=== PATIENT | male | born 1945 | race Caucasian/White ===

== ENCOUNTER 2016-12-31 08:28 | Day surgery (SDC) | payer MEDICARE, BC ==
[2016-12-31] VITALS (11 sets, daily range): BP systolic 108–136; BP diastolic 65–88
[~2016-12-31] VITALS: Ht 182.9 cm; Wt 70.3 kg
[~2016-12-31 08:28] MED LIST: ASPIRIN325 MG ORAL; FUROSEMIDE40 MG ORAL; PREDNISONE10 MG ORAL; SPIRONOLACTONE100 MG ORAL; Vancomycin 1 GM in D5W 275 ML IVPB ONE
--- NOTE | 2016-12-31 09:23 | Pre-Procedure Note/Attestation ---
Pre-Procedure Note/Attestation Complete Prior to Procedure Planned Procedure: not applicable Procedure Narrative: ipp Indications for Procedure Pre-Operative Diagnosis: ed Attestation I attest that I discussed the nature of the procedure; its benefits; risks and complications; and alternatives (and the risks and benefits of such alternatives ), prior to the procedure, with the patient (or the patient's legal medical claims representative). I attest that, if there was a reasonable possibility of needing a blood transfusion, the patient (or the patient's legal medical claims representative) was given the [facility] standardized written summary, pursuant to the Rolly Lizz Blood Safety Act ([place] Health and Safety Code # 1645, as amended). I attest that I re-evaluated the patient just prior to the surgery and that there has been no change in the patient's H&P, except as documented below: Agustín Laureano MD Dec 31, 2016 09:23
--- NOTE | 2016-12-31 09:24 | Brief Operative Note ---
Immediate Post Operative Note Operative Note Pre-op Diagnosis: ed Procedure: ipp Post-op Diagnosis: same Post-op Diagnosis: same as pre-op Surgeon: Tremaine Laureano Anesthesia: general Specimen: none Complications: none Condition: stable Fluids: 500 Estimated Blood Loss: minimal Implant(s) used?: Yes Agustín Laureano MD Dec 31, 2016 09:24
[2016-12-31] MEDS ORDERED: Bacitracin 50000 Units Vial IRRIG ONE ×2 (11:00→12:02)
[2016-12-31] MEDS ORDERED: Midazolam 2mg/2ml Inj ONE (11:30)
[2016-12-31] MEDS ORDERED: Succinylcholine 20mg/ml 10ml vial ONE (11:30)
[2016-12-31] MEDS ORDERED: Sterile Water Irrig 1000ml IRRIG ONE (11:30)
[2016-12-31] MEDS ORDERED: fentaNYL 100 mcg/2 mL IV ONE (11:30)
[2016-12-31] MEDS ORDERED: Lidocaine 1% MPF 10mg/ml 5ml ONE (11:30)
[2016-12-31] MEDS ORDERED: NS Irrig 1000ml ONE (11:30)
[2016-12-31] MEDS ORDERED: Propofol 200mg/20ml IV ONE (11:30)
[2016-12-31] MEDS ORDERED: LR 1000ml ONE (11:30)
[2016-12-31] MEDS ORDERED: Dexamethasone 4mg/ml vial ONE (11:30)
[2016-12-31] MEDS ORDERED: ePHEDrine 50mg/ml Inj ONE (11:30)
[2016-12-31] MEDS ORDERED: Solu-MEDROL 40mg Inj ONE (11:30)
--- NOTE | 2016-12-31 11:56 | Anethesia Preoperative Eval ---
Anesthesia Pre-op PMH/ROS General Date of Evaluation: Dec 31, 2016 Time of Evaluation: 11:20 Anesthesiologist: TOYA ASA Score: ASA 3 Mallampati Score Class I : Soft palate, uvula, fauces, pillars visible Class II: Soft palate, uvula, fauces visible Class III: Soft palate, base of uvula visible Class IV: Only hard plate visible Mallampati Classification: Class I Surgeon: PEEWEE Diagnosis: ED Surgical Procedure: IMPLANTABLE PENILE PROSTHESIS Anesthesia History: none Family History: no anesthesia problems Allergies: Coded Allergies: CODEINE (Verified Allergy, Intermediate, VOMITING, 12/31/16) IBUPROFEN (Verified Adverse Reaction, Severe, RED FACE, 12/31/16) pt has cirrhosis of liver Past Medical History Gastrointestinal/Genitourinary: Reports: other - LIVER CIRRHOSIS HEENT: Reports: glaucoma Anesthesia Pre-op Phys. Exam Physician Exam Last Vital Signs Date Time Temp Pulse Resp B/P (MAP) Pulse Ox O2 Delivery O2 Flow Rate FiO2 12/31/16 08:55 97.8 78 18 130/88 99 Room Air Constitutional: NAD Cardiovascular: RRR Airway Exam Mallampati Score: Class I MO: full ROM: full Anesthesia Pre-op A/P Risk Assessment & Plan Assessment: ASA3 Plan: GETA Status Change Before Surgery: No Pre-Antibiotics Drug: VANCO, GENT Given Within 1 Hr of Incision: Yes Time Given: 11:29 Yoli Mcdowell M.D. Dec 31, 2016 11:56
[2016-12-31] MEDS ORDERED: fentaNYL 100 mcg/2 mL IV PRN (12:00)
[2016-12-31] MEDS ORDERED: Atropine Inj 1mg/10ml Syr IV PRN (12:00)
[2016-12-31] MEDS ORDERED: Hydromorphone 0.5mg/0.5ml inj IVP PRN (12:00)
[2016-12-31] MEDS ORDERED: NeoSporin Gu Irrig 1ml Amp IRRIG ONE (12:44)
[2016-12-31] MEDS ORDERED: Bacitracin 50000 Units Vial ONE (12:44)
--- NOTE | 2016-12-31 14:49 | Immediate Post-Op Evaluation ---
Immediate Post-Op Evalulation Immediate Post-Op Evalulation Procedure: implantable penile prosthesis Date of Evaluation: Dec 31, 2016 Time of Evaluation: 12:43 IV Fluids: 300 Estimated Blood Loss: minimal Urinary Output: 350 Blood Pressure Systolic: 123 Blood Pressure Diastolic: 75 Pulse Rate: 78 Respiratory Rate: 18 O2 Sat by Pulse Oximetry: 99 Temperature (Fahrenheit): 97.5 Pain Score (1-10): 0 Nausea: No Vomiting: No Complications none Patient Status: awake Hydration Status: adequate Drug: vano, gent Given Within 1 Hr of Incision: Yes Time Given: 11:29 Yoli Mcdowell M.D. Dec 31, 2016 14:49
--- NOTE | 2016-12-31 14:51 | 48 Hour Post Anesthesia Eval ---
Post Anesthesia Evaluation Procedure: implantable penile prosthesis Date of Evaluation: Dec 31, 2016 Time of Evaluation: 13:15 Blood Pressure Systolic: 130 Pulse Rate: 69 Respiratory Rate: 18 Temperature (Fahrenheit): 97.6 O2 Sat by Pulse Oximetry: 99 Airway: patent Nausea: No Vomiting: No Pain Intensity: 0 Hydration Status: adequate Mental Status/LOC: patient returned to baseline Follow-up care needed: N/A Yoli Mcdowell M.D. Dec 31, 2016 14:51
--- NOTE | 2016-12-31 15:13 | History and Physical ---
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 The patient has no complaints of fever or recent illness, no complaint of chest pain or shortness of breath. Patient appears to be in stable condition and will be soon by surgical consultation. The patients coagulation studies will be examined before a surgical procedure due to the patients liver dysfunction. Allergies: Coded Allergies: CODEINE (Verified Allergy, Intermediate, VOMITING, 12/31/16) IBUPROFEN (Verified Adverse Reaction, Severe, RED FACE, 12/31/16) pt has cirrhosis of liver Medication History Scheduled Aspirin* (Aspirin*), 325 MG ORAL DAILY, (Reported) Furosemide* (Lasix*), 20 MG ORAL DAILY, (Reported) Prednisone* (Prednisone*), 10 MG ORAL DAILY, (Reported) Spironolactone* (Spironolactone*), 20 MG ORAL DAILY, (Reported) Patient History Healthcare decision maker Resuscitation status Advanced Directive on File Past Medical/Surgical History Past Medical/Surgical History: (1) Liver cirrhosis (2) penile prosthesis implant Review of Systems Constitutional: Reports: no symptoms Eye: Reports: no symptoms ENT: Reports: nasal discharge Genitourinary: Reports: dysuria, frequency, retention, incontinence, urgency Physical Exam General Appearance: WD/WN Lines, tubes and drains: peripheral, PICC HEENT: normocephalic, mucous membranes moist Neck: non-tender Respiratory/Chest: chest wall non-tender, lungs clear Breasts: no masses Cardiovascular/Chest: normal rate, no JVD Abdomen: normal bowel sounds, non tender, soft, no organomegaly Genitourinary/Rectal: normal genital exam, normal rectal exam, other - no apparent signs of trauma or disease Extremities: normal range of motion, non-tender, normal inspection, no calf tenderness Skin Exam: normal pigmentation, warm/dry Neurologic: auxiliary equipment tender II-XII grossly normal, no motor/sensory deficits Last 24 Hour Vital Signs Date Time Temp Pulse Resp B/P (MAP) Pulse Ox O2 Delivery O2 Flow Rate FiO2 12/31/16 14:51 69 18 99 12/31/16 14:49 78 18 99 12/31/16 13:25 98.0 70 20 130/76 100 Nasal Cannula 3.0 12/31/16 13:05 80 20 132/70 100 Nasal Cannula 3.0 12/31/16 12:50 84 20 136/77 100 Nasal Cannula 3.0 12/31/16 12:35 80 20 123/77 100 Simple Mask 8.0 12/31/16 12:30 88 20 129/77 100 Simple Mask 8.0 12/31/16 12:25 97.7 83 20 131/75 100 Simple Mask 8.0 12/31/16 08:55 97.8 78 18 130/88 99 Room Air Intake and Output 12/31/16 01/01/17 19:00 07:00 Intake Total 1000 ml Output Total 350 ml Balance 650 ml Intake IV Total 1000 ml Output Urine Total 350 ml # Voids 1 Height (Feet): 6 Height (Inches): 0.00 Weight (Pounds): 155 Medications Current Medications Medications (Trade) Dose Ordered Sig/Kayla Route PRN Reason Start Time Stop Time Status Last Admin Dose Admin Atropine Sulfate (Atropine) 0.5 mg Q5M PRN IV BRADYCARDIA 12/31/16 12:00 12/31/16 18:00 Dextrose/Sodium Chloride 1,000 ml @ 100 mls/hr Q10H IV 12/31/16 18:01 01/30/17 18:00 Fentanyl Citrate (Sublimaze 100 mcg/2 mL) 25 mcg Q10M PRN IV Moderate Pain (Pain Scale 4-6) 12/31/16 12:00 12/31/16 18:00 Hydromorphone HCl (Dilaudid) 0.5 mg Q15M PRN IVP Severe Pain (Pain Scale 7-10) 12/31/16 12:00 12/31/16 18:00 Hydromorphone HCl (Dilaudid) 1 mg Q1H PRN SUBQ Severe Pain (Pain Scale 7-10) 12/31/16 18:01 01/07/17 18:00 Ondansetron HCl (Zofran) 4 mg Q1H PRN IVP Nausea & Vomiting 12/31/16 12:00 12/31/16 18:00 Assessment/Plan Problem List: (1) penile prosthesis implant (2) Liver cirrhosis ICD Codes: K74.60 - Unspecified cirrhosis of liver SNOMED: [id number] Qualifiers: Status: stable, progressing Assessment/Plan Routine post op care Symptomatic treatment Check electrolytes and replacement as needed Pain management Urologist to follow up MARY LION Dec 31, 2016 15:13
[2016-12-31] MEDS: D5 1/2NS 1,000 ML IV SCH (17:43)
[2016-12-31] MEDS: HYDROmorphone 1mg/ml Carpuject SUBQ PRN (21:27)
[2017-01-01 00:09] VITALS: BP 97/57
[2017-01-01] MEDS: D5 1/2NS 1,000 ML IV SCH (03:58)
[2017-01-01 04:00] VITALS: BP 107/68
[2017-01-01] MEDS: HYDROmorphone 1mg/ml Carpuject SUBQ PRN (06:01)
[2017-01-01 08:00] VITALS: BP 106/67
[2017-01-01 09:12] LABS: BASOPHILS % (AUTO) 0.5 % (0.0-2.0); EOSINOPHILS % (AUTO) 0.5 % (0.0-3.0); LYMPHOCYTES % (AUTO) 15.3 % (20.0-45.0); MEAN CORPUSCULAR HEMOGLOBIN 23.8 PG (27.0-31.0); MEAN CORPUSCULAR HGB CONC 30.9 G/DL (32.0-36.0); MEAN CORPUSCULAR VOLUME 77 FL (80-99); MEAN PLATELET VOLUME 7.5 FL (6.5-10.1); MONOCYTES % (AUTO) 7.6 % (1.0-10.0); NEUTROPHILS % (AUTO) 76.2 % (45.0-75.0); PLATELET COUNT 194 K/UL (150-450); RED BLOOD COUNT 3.83 M/UL (4.70-6.10); RED CELL DISTRIBUTION WIDTH 17.2 % (11.6-14.8); WHITE BLOOD COUNT 13.1 K/UL (4.8-10.8)
[2017-01-01 09:28] LABS: ALANINE AMINOTRANSFERASE 13 U/L (12-78); ALBUMIN/GLOBULIN RATIO 0.9 (1.0-2.7); ANION GAP 8 mmol/L (5-15); ASPARTATE AMINO TRANSFERASE 17 U/L (15-37); CALCIUM 8.5 MG/DL (8.5-10.1); CARBON DIOXIDE 27 MMOL/L (21-32); CHLORIDE 106 MMOL/L (98-107); CREATININE 0.9 MG/DL (0.55-1.30); MAGNESIUM 1.8 MG/DL (1.8-2.4); PHOSPHORUS 2.6 MG/DL (2.5-4.9); POTASSIUM 4.1 MMOL/L (3.5-5.1); SODIUM 141 MMOL/L (136-145); TOTAL PROTEIN 6.2 G/DL (6.4-8.2)
[2017-01-01 12:51] VITALS: BP 118/66
[2017-01-01] MEDS ORDERED: D5 1/2NS 1000ml IV ONE (14:09)
--- NOTE | 2017-01-01 22:24 | Pulmonology Progress Note ---
Assessment/Plan Problems: (1) penile prosthesis implant (2) Liver cirrhosis Assessment/Plan Routine post op care Symptomatic treatment Check electrolytes and replacement as needed Pain management Urologist to follow up Subjective ROS Limited/Unobtainable: No Allergies: Coded Allergies: CODEINE (Verified Allergy, Intermediate, VOMITING, 12/31/16) IBUPROFEN (Verified Adverse Reaction, Severe, RED FACE, 12/31/16) pt has cirrhosis of liver Objective Last 24 Hour Vital Signs Date Time Temp Pulse Resp B/P (MAP) Pulse Ox O2 Delivery O2 Flow Rate FiO2 01/01/17 12:51 97.4 68 19 118/66 100 Room Air 01/01/17 08:00 97.3 64 19 106/67 99 Room Air 01/01/17 04:00 98.0 65 19 107/68 98 Nasal Cannula 3.0 01/01/17 00:09 98.0 66 18 97/57 97 Room Air General Appearance: no acute distress HEENT: normocephalic, atraumatic, PERRL Respiratory/Chest: chest wall non-tender, decreased breath sounds Cardiovascular: normal peripheral pulses, normal rate, regular rhythm, no JVD Abdomen: normal bowel sounds, soft, non tender, no organomegaly, non distended Genitourinary: other - status post penile prosthesis Extremities: no cyanosis Skin: no rash, no lesions Neurologic/Psychiatric: rivet sticker II-XII grossly normal, no motor/sensory deficits Laboratory Tests 01/01/17 08:50: White Blood Count 13.1H, Red Blood Count 3.83L, Hemoglobin 9.1L, Hematocrit 29.4L, Mean Corpuscular Volume 77L, Mean Corpuscular Hemoglobin 23.8L, Mean Corpuscular Hemoglobin Concent 30.9L, Red Cell Distribution Width 17.2H, Platelet Count 194, Mean Platelet Volume 7.5, Neutrophils (%) (Auto) 76.2H, Lymphocytes (%) (Auto) 15.3L, Monocytes (%) (Auto) 7.6, Eosinophils (%) (Auto) 0.5, Basophils (%) (Auto) 0.5, Sodium Level 141, Potassium Level 4.1, Chloride Level 106, Carbon Dioxide Level 27, Anion Gap 8, Blood Urea Nitrogen 11, Creatinine 0.9, Estimat Glomerular Filtration Rate , Glucose Level 130H, Calcium Level 8.5, Phosphorus Level 2.6, Magnesium Level 1.8, Total Bilirubin 0.2, Aspartate Amino Transf (AST/SGOT) 17, Alanine Aminotransferase (ALT/SGPT) 13, Alkaline Phosphatase 48, Total Protein 6.2L, Albumin 2.9L, Globulin 3.3, Albumin/Globulin Ratio 0.9L MARY LION Jan 01, 2017 22:24
--- NOTE | 2017-01-05 10:15 | Operative Note - Dictated ---
DATE OF OPERATION: 12/31/2016 PREOPERATIVE DIAGNOSIS: Organic impotence. POSTOPERATIVE DIAGNOSIS: Organic impotence. OPERATION: Implantation of 2-piece penile prosthesis. SURGEON: Agustín Laureano M.D. ANESTHESIA: General. FINDINGS: Obstructed corpora. 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 The patient had tried different modes of treatment without any success. Treatment options were explained to him at great length including all potential complications and he signed the consent. PROCEDURE IN DETAIL: The patient was brought to the operating room, placed in the supine position, and prepped and draped in the standard fashion under general anesthesia. A penoscrotal incision was made and corpora was opened on both sides and dilated to 14-Hebrew with Hegar dilators and urethra was carefully preserved. After the measurement, the corpora was 22 cm in length and 18 cm Ambicor prosthesis with 4 cm rear tip adapters were placed without any tension. Corpora was then closed with running 2-0 Vicryl sutures. Pump was placed in subdartos position. Wound was closed with 3 layers. The patient tolerated the procedure well. No evidence of complications. Agustín Laureano M.D. DR: DONNIE JOB#: [id number] CC: JOHNNA
--- NOTE | 2017-02-28 06:54 | Discharge Summary ---
Discharge Summary Hospital Course Date of Admission Dec 31, 2016 at 13:18 Date of Discharge Jan 01, 2017 at 14:10 Admitting Diagnosis HPI Afshin Hurst is a 71 year old male who was admitted on Dec 31, 2016 at 13: 18 for Impotence Hospital Course [id number] Discharge Discharge Disposition Patient was discharged to Home (01) Discharge Diagnoses: Harmony Oliveira NP Feb 28, 2017 06:54
--- NOTE | 2017-02-28 09:30 | Discharge Summary 2 SIG ---
DATE OF ADMISSION: 12/31/2016 DATE OF DISCHARGE: 01/01/2017 BRIEF HOSPITAL COURSE: The patient is a 71-year-old male, who was admitted for implantable penile prosthesis, underwent implantation of two-piece penile prosthesis on 12/31/[address] Agustín Laureano. He tolerated procedure well and postoperatively, Haro catheter was discontinued. The patient was ambulating and voiding well, tolerating diet. He was eventually discharged home. FINAL DIAGNOSES: 1. Organic impotence, status post implantation of two-piece penile prosthesis. 2. Liver cirrhosis. DISPOSITION: The patient was discharged home. DISCHARGE INSTRUCTION: Follow up with Dr. Laureano as an outpatient. Agustín Laureano M.D. I have been assigned to dictate discharge summary on this account and I was not involved in the patient's management. Harmony Oliveira N.P. DR: UBALDO JOB#: [id number] CC:
== END 2017-01-01 14:10 | disposition home or self-care (01) ==
LOC: SUR 08:28 → 3E 13:18
DX: N52.9 Male erectile dysfunction, unspecified (principal); F17.200 Nicotine dependence, unspecified, uncomplicated; R53.83 Other fatigue; R07.9 Chest pain, unspecified; F32.9 Major depressive disorder, single episode, unspecified; F41.9 Anxiety disorder, unspecified; Z88.6 Allergy status to analgesic agent; K74.60 Unspecified cirrhosis of liver
CPT/HCPCS: 36415; 54405; 71010; 80053; 83735; 84100; 85025; 96360; 96372; C1813; G0378; G0379; J0330; J1100; J1170; J2250; J2405; J2704; J2920; J3010; J3370; J7120; 94003; 94150

== ENCOUNTER 2018-11-04 05:59 | Emergency (ER) | payer MEDICARE, BC ==
[~2018-11-04] VITALS: Ht 182.9 cm; Wt 63.5 kg
[~2018-11-04 05:59] MED LIST changes: -Vancomycin 1 GM in D5W 275 ML IVPB ONE
--- NOTE | 2018-11-04 06:03 | NUR ---
called pt, not in the waiting room, pt outside smoking.
[2018-11-04 06:18] VITALS: BP 112/78
[2018-11-04] MEDS ORDERED: VENTOLIN HFA18 GM INH (06:20)
[2018-11-04] MEDS ORDERED: INJECTAFER750 MG/15 (06:20)
[2018-11-04] MEDS ORDERED: FERGON240 MG PO (06:20)
[2018-11-04] MEDS ORDERED: TESTOSTERONE1.25 GM TD (06:20)
[2018-11-04] MEDS ORDERED: FLOMAX0.4 MG ORAL (06:20)
[2018-11-04] MEDS ORDERED: ASPIRIN81 M3 PO (06:20)
[2018-11-04] MEDS ORDERED: ALDACTONE25 MG ORAL (06:20)
--- NOTE | 2018-11-04 06:24 | NUR ---
ED Nurse Note: pt walked in to ED C/O bleeding from his left eye since 0500 this morning when he woke up. pt states he had a retina repair about two years ago. denies any pain to left eye, however it is uncomfortable.
--- NOTE | 2018-11-04 06:26 | NUR ---
ED Nurse Note: left eye is blind, rght eye is 20/25. Pt VSS
--- NOTE | 2018-11-04 06:59 | Emergency Room Report ---
History of Present Illness General Chief Complaint: Eye Problems Source: Patient, Medical Record Present Illness HPI This patient has a history of left eye blindness. He states that 2 years ago he underwent a left retina repair by Dr. Fu. He states that he sees Dr. Fu every 3 months for routine appointments. He does have an appointment with Dr. Fu this morning at 915. However, he presents to the emergency department today because he noted some bleeding from his left eye when he woke up this morning. He does have a history of blindness in the left eye. He denies recent illness. He states that normally his left conjunctive was not as irritated. He denies fever or chills. He denies headache. He denies eye pain. He has no other complaints. Allergies: Coded Allergies: CODEINE (Verified Allergy, Intermediate, VOMITING, 12/31/16) IBUPROFEN (Verified Adverse Reaction, Severe, RED FACE, 12/31/16) pt has cirrhosis of liver Patient History Past Medical History: see triage record, other - Hx of cirrhosis Past Surgical History: other - duodenctomy Social History: Reports: smoking; Denies: alcohol use, drug use Reviewed Nursing Documentation: PMH: Agreed; PSxH: Agreed Nursing Documentation-PMH Past Medical History: No History, Except For Hx Cardiac Problems: No Hx Cancer: No Hx Gastrointestinal Problems: Yes - DUODENECTOMY, HERNIA REPAIR Hx Neurological Problems: No - RETINA REPLACEMENT SURGERY Review of Systems All Other Systems: negative except mentioned in HPI Physical Exam Vital Signs Date Time Temp Pulse Resp B/P (MAP) Pulse Ox O2 Delivery O2 Flow Rate FiO2 11/04/18 06:10 97.7 90 18 111/78 (89) 95 Room Air Sp02 EP Interpretation: reviewed, normal General Appearance: no apparent distress, alert, GCS 15, non-toxic Head: normocephalic, atraumatic Eyes: right eye normal inspection; left eye Scleral Injection, left eye other - small amount of old blood and conjunctival erythema of L. eye. Cornea cloudy , pupil non-reactive (baseline). Eyelids wnl. ENT: hearing grossly normal, normal pharynx, no angioedema, normal voice Neck: full range of motion, supple/symm/no masses Respiratory: no respiratory distress, no retraction, no accessory muscle use, speaking full sentences Gastrointestinal: normal inspection Rectal: deferred Musculoskeletal: back normal, gait/station normal Neurologic: alert, oriented x3, responsive, motor strength/tone normal, speech normal Psychiatric: judgement/insight normal, memory normal, mood/affect normal, no suicidal/homicidal ideation Skin: no rash, normal color Medical Decision Making Diagnostic Impression: Primary Impression: Conjunctivitis ER Course This patient has findings on exam consistent with conjunctivitis. The patient is complicated secondary to his history of blindness in this eye and a history of retinal detachment with retinal repair. I am unsure of the exam findings of the left eye at baseline for this patient, therefore, I felt that I should discuss the case with the patient's primary fire sprinkler service technician Dr. Fu. The patient's ophthalmology office was closed and multiple message is were left on the office voicemail. Therefore, given the patient has an appointment at 915 this morning with his own fire sprinkler service technician, I will go ahead and give the patient topical antibiotics and have him keep his 915 appointment this morning. The patient is given close return precautions and follow-up instructions. Last Vital Signs Date Time Temp Pulse Resp B/P (MAP) Pulse Ox O2 Delivery O2 Flow Rate FiO2 11/04/18 06:18 97.7 84 18 112/78 95 Room Air Status: improved Disposition: HOME, SELF-CARE Condition: Improved Patient Instructions: Bacterial Conjunctivitis, [id number] Vangie Wallace DO Nov 04, 2018 06:59
--- NOTE | 2018-11-04 07:05 | NUR ---
ED Nurse Note: report given to NAOMIE posey
[2018-11-04] MEDS ORDERED: CILOXAN3.5 GM OP (07:17)
[2018-11-04 07:20] VITALS: BP 112/78
--- NOTE | 2018-11-04 07:20 | NUR ---
ER DISCHARGE NOTE: Patient is cleared to be discharged per ERMD, pt is aox4, on room air, with stable vital signs. pt was given dc and prescription instructions, pt was able to verbalize understanding, pt id band removed. pt is able to ambulate with steady gait. pt took all belongings.
== END 2018-11-04 07:20 | disposition home or self-care (01) ==
LOC: EMR 06:37
DX: H10.9 Unspecified conjunctivitis (principal); H54.62 Unqualified visual loss, left eye, normal vision right eye; Z88.6 Allergy status to analgesic agent; F17.200 Nicotine dependence, unspecified, uncomplicated
CPT/HCPCS: 99282

== ENCOUNTER 2020-01-25 03:32 | Inpatient (IN) | payer MEDICARE, BC ==
[~2020-01-25] VITALS: Ht 165.1 cm; Wt 57.6 kg
[2020-01-25] VITALS (7 sets, daily range): BP systolic 70–140; BP diastolic 50–90
[~2020-01-25 03:32] MED LIST changes: +ALDACTONE25 MG ORAL; +ASPIRIN81 M3 PO; +CILOXAN3.5 GM OP; +FERGON240 MG PO; +FLOMAX0.4 MG ORAL; +INJECTAFER750 MG/15; +TESTOSTERONE1.25 GM TD; +VENTOLIN HFA18 GM INH; +Vancomycin 1gm in D5W 275ml IVPB SCH
[2020-01-25] MEDS ORDERED: Morphine Sulfate 2mg/ml Inj(IV/IM USE ONLY) IVP ONE (04:00)
--- NOTE | 2020-01-25 04:07 | Emergency Room Report ---
History of Present Illness General Chief Complaint: Pain Source: Patient, EMS (Jamie Bailey MD) Present Illness HPI Patient transported via EMS. He is coming from home with a complaint of abdominal pain and vomiting that began at 7 PM last night. He draws both of his hands across the lower part of the abdomen. He said it radiates somewhat to his back also. He has not had this pain before. He is denies change in his bowels, hematochezia or melena or bright red blood. In addition he has been vomiting up food stuff. In the back of the ambulance he vomited up some oatmeal and thinks he might of brought it into his lungs and therefore he has been coughing due to that. The pain is rated 8/10 in the lower abdomen. It is constant. The patient has a history of metastatic lung CA and began chemotherapy 3 weeks ago. He has a Port-A-Cath. He has been losing weight. He has been trying to get nutritional supplements but has been unable to recently. The patient also has a history of cirrhosis. The patient has been self isolating and denies exposure to Covid positive contacts. No fevers, chills, sore throat, chest pain, palpitations, dysuria, shortness of breath, joint pain, rashes, visual changes, dizziness, headache. 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 [email or web address] Reviewed Nursing Documentation: PMH: Agreed; PSxH: Agreed (Jamie Bailey MD) Nursing Documentation-PMH Hx Cardiac Problems: No Hx Cancer: No - LUNG, LIVER CA Hx Gastrointestinal Problems: Yes - DUODENECTOMY, HERNIA REPAIR, LIVER CIRRHOSIS Hx Neurological Problems: No - RETINA REPLACEMENT SURGERY (Jamie Bailey MD) Review of Systems All Other Systems: negative except mentioned in HPI (Jamie Bailey MD) Physical Exam Vital Signs Date Time Temp Pulse Resp B/P (MAP) Pulse Ox O2 Delivery O2 Flow Rate FiO2 01/25/20 03:33 98.1 72 20 130/82 (98) 97 Sp02 EP Interpretation: reviewed, normal General Appearance: thin, other - Cachectic, Chronically Ill Head: normocephalic, atraumatic Eyes: bilateral eye EOMI, bilateral eye other - Bilateral cataracts more dense on the left ENT: dry mucus membranes Respiratory: chest non-tender, rales - Dry right base Cardiovascular #1: normal peripheral pulses, regular rate, rhythm, other - Po rt-A-Cath right Cardiovascular #2: 2+ radial (R) Gastrointestinal: normal bowel sounds, no mass, no guarding, no rebound, tenderness - Infraumbilical, scaphoid Genitourinary: no CVA tenderness Musculoskeletal: back normal Neurologic: alert, oriented x3, grossly normal Psychiatric: mood/affect normal Skin: no rash, warm/dry, other - Sallow (Jamie Bailey MD) Medical Decision Making Diagnostic Impression: Primary Impression: Abdominal pain Qualified Codes: R10.30 - Lower abdominal pain, unspecified Additional Impressions: Right lower lobe pneumonia Qualified Codes: J18.9 - Pneumonia, unspecified organism Metastatic primary lung cancer Qualified Codes: C34.91 - Malignant neoplasm of unspecified part of right bronchus or lung ER Course Patient with metastatic lung cancer on chemotherapy presents with lower abdominal pain and vomiting. Differential includes pancreatitis, diverticulitis, urinary tract infection, small bowel obstruction, aortic aneurysm amongst others. Patient evaluated with EKG, chest x-ray, CT of the abdomen and pelvis and labs. Concern over recent vomiting and cough for possibility of pneumonia on top of obvious clinical COPD and lung cancer. Patient placed on registered nurse cardiac telemetry. Venous blood gas also obtained. Patient treated with IV hydration, Zofran, Pepcid and morphine. Repeated exams indicated. EKG NSR and NSSTTW changes. CXR with possible infiltrates (different from 2010). BC ordered and antibiotics also. 445 Consideration of sepsis due to elevated WBC. VS stable, no end organ dysfunction. Antibiotics ordered. Await lactic acid. Sepsis re-evaluation - 515. Elevated liver function tests. INR normal. Urinalysis negative. Lactic acid normal. Patient improved with treatment. Analgesia repeated. Patient admitted to the hospital. CT scan performed but results pending. Result review requested of Dr. Verma. Laboratory Tests Test 01/25/20 03:45 01/25/20 04:02 01/25/20 04:03 Urine Color Yellow Urine Appearance Clear Urine pH 7 (4.5-8.0) Urine Specific [place] 1.010 (1.005-1.035) Urine Protein Negative (NEGATIVE) Urine Glucose (UA) Negative (NEGATIVE) Urine Ketones Negative (NEGATIVE) Urine Blood Negative (NEGATIVE) Urine Nitrite Negative (NEGATIVE) Urine Bilirubin Negative (NEGATIVE) Urine Urobilinogen 4 MG/DL (0.0-1.0) H Urine Leukocyte Esterase Negative (NEGATIVE) Sodium Level 134 MMOL/L (136-145) L Potassium Level 3.7 MMOL/L (3.5-5.1) Chloride Level 99 MMOL/L (98-107) Carbon Dioxide Level 28 MMOL/L (21-32) Anion Gap 7 mmol/L (5-15) Blood Urea Nitrogen 12 mg/dL (7-18) Creatinine 1.0 MG/DL (0.55-1.30) Estimated Glomerular Filtration Rate > 60 mL/min (>60) Glucose Level 169 MG/DL (74-106) H Lactic Acid Level 1.10 mmol/L (0.4-2.0) Calcium Level 8.7 MG/DL (8.5-10.1) Magnesium Level 1.8 MG/DL (1.8-2.4) Ferritin 385 NG/ML (8-388) Total Bilirubin 1.5 MG/DL (0.2-1.0) H Direct Bilirubin 1.2 MG/DL (0.0-0.3) H Aspartate Amino Transferase (AST) 495 U/L (15-37) H Alanine Aminotransferase (ALT) 362 U/L (12-78) H Alkaline Phosphatase 982 U/L (46-116) H Lactate Dehydrogenase 527 U/L (81-234) H Total Creatine Kinase 32 U/L (26-308) Troponin I 0.000 ng/mL (0.000-0.056) C-Reactive Protein, Quantitative 3.0 mg/dL (0.00-0.90) H Pro-B-Type Natriuretic Peptide 247 pg/mL (0-125) H Total Protein 7.2 G/DL (6.4-8.2) Albumin 2.8 G/DL (3.4-5.0) L Globulin 4.4 g/dL Albumin/Globulin Ratio 0.6 (1.0-2.7) L Lipase 51 U/L (73-393) L White Blood Count 26.8 K/UL (4.8-10.8) *H Red Blood Count 3.85 M/UL (4.70-6.10) L Hemoglobin 12.9 G/DL (14.2-18.0) L Hematocrit 38.8 % (42.0-52.0) L Mean Corpuscular Volume 101 FL (80-99) H Mean Corpuscular Hemoglobin 33.6 PG (27.0-31.0) H Mean Corpuscular Hemoglobin Concent 33.4 G/DL (32.0-36.0) Red Cell Distribution Width 13.5 % (11.6-14.8) Platelet Count 322 K/UL (150-450) Mean Platelet Volume 6.3 FL (6.5-10.1) L Neutrophils (%) (Auto) % (45.0-75.0) Lymphocytes (%) (Auto) % (20.0-45.0) Monocytes (%) (Auto) % (1.0-10.0) Eosinophils (%) (Auto) % (0.0-3.0) Basophils (%) (Auto) % (0.0-2.0) Differential Total Cells Counted 100 Neutrophils % (Manual) 91 % (45-75) H Lymphocytes % (Manual) 6 % (20-45) L Monocytes % (Manual) 3 % (1-10) Eosinophils % (Manual) 0 % (0-3) Basophils % (Manual) 0 % (0-2) Band Neutrophils 0 % (0-8) Platelet Estimate Adequate Platelet Morphology Normal Prothrombin Time 11.9 SEC (9.30-11.50) H Prothrombin Time INR 1.1 (0.9-1.1) Activated Partial Thromboplast Time 27 SEC (23-33) Venous Blood pH 7.482 Venous Blood Partial Pressure CO2 34.5 Venous Blood Partial Pressure O2 66.9 Venous Blood HCO3 25.2 Venous Blood Base Excess 2.1 Venous Blood Carboxyhemoglobin 2.1 % (0.5-1.5) H Methemoglobin 0.1 Microbiology Date/Time Source Procedure Growth Status 01/25/20 04:00 Nasopharynx SARS-CoV-2 RdRp Gene Assay - Final Complete (Jamie Bailey MD) ER Course Assumed care of the patient from the previous provider at approximately 0600. Please refer to initial note for full history and physical exam. Briefly, 74-year-old male history of metastatic cancer presents for evaluation of abdominal pain. Found to have a right lower lobe pneumonia and treated with antibiotics. At the time of signout we are awaiting CT results. Results are now finalized and radiology concerned of obstructing biliary disease, either ampullary lesion versus gallstone. LFTs and bilirubin are elevated that the pat ient also has a history of cirrhosis. Admitting physician and surgery notified. Laboratory Tests Test 01/25/20 03:45 01/25/20 04:02 01/25/20 04:03 Urine Color Yellow Urine Appearance Clear Urine pH 7 (4.5-8.0) Urine Specific [place] 1.010 (1.005-1.035) Urine Protein Negative (NEGATIVE) Urine Glucose (UA) Negative (NEGATIVE) Urine Ketones Negative (NEGATIVE) Urine Blood Negative (NEGATIVE) Urine Nitrite Negative (NEGATIVE) Urine Bilirubin Negative (NEGATIVE) Urine Urobilinogen 4 MG/DL (0.0-1.0) H Urine Leukocyte Esterase Negative (NEGATIVE) Sodium Level 134 MMOL/L (136-145) L Potassium Level 3.7 MMOL/L (3.5-5.1) Chloride Level 99 MMOL/L (98-107) Carbon Dioxide Level 28 MMOL/L (21-32) Anion Gap 7 mmol/L (5-15) Blood Urea Nitrogen 12 mg/dL (7-18) Creatinine 1.0 MG/DL (0.55-1.30) Estimated Glomerular Filtration Rate > 60 mL/min (>60) Glucose Level 169 MG/DL (74-106) H Lactic Acid Level 1.10 mmol/L (0.4-2.0) Calcium Level 8.7 MG/DL (8.5-10.1) Magnesium Level 1.8 MG/DL (1.8-2.4) Ferritin 385 NG/ML (8-388) Total Bilirubin 1.5 MG/DL (0.2-1.0) H Direct Bilirubin 1.2 MG/DL (0.0-0.3) H Aspartate Amino Transferase (AST) 495 U/L (15-37) H Alanine Aminotransferase (ALT) 362 U/L (12-78) H Alkaline Phosphatase 982 U/L (46-116) H Lactate Dehydrogenase 527 U/L (81-234) H Total Creatine Kinase 32 U/L (26-308) Troponin I 0.000 ng/mL (0.000-0.056) C-Reactive Protein, Quantitative 3.0 mg/dL (0.00-0.90) H Pro-B-Type Natriuretic Peptide 247 pg/mL (0-125) H Total Protein 7.2 G/DL (6.4-8.2) Albumin 2.8 G/DL (3.4-5.0) L Globulin 4.4 g/dL Albumin/Globulin Ratio 0.6 (1.0-2.7) L Lipase 51 U/L (73-393) L White Blood Count 26.8 K/UL (4.8-10.8) *H Red Blood Count 3.85 M/UL (4.70-6.10) L Hemoglobin 12.9 G/DL (14.2-18.0) L Hematocrit 38.8 % (42.0-52.0) L Mean Corpuscular Volume 101 FL (80-99) H Mean Corpuscular Hemoglobin 33.6 PG (27.0-31.0) H Mean Corpuscular Hemoglobin Concent 33.4 G/DL (32.0-36.0) Red Cell Distribution Width 13.5 % (11.6-14.8) Platelet Count 322 K/UL (150-450) Mean Platelet Volume 6.3 FL (6.5-10.1) L Neutrophils (%) (Auto) % (45.0-75.0) Lymphocytes (%) (Auto) % (20.0-45.0) Monocytes (%) (Auto) % (1.0-10.0) Eosinophils (%) (Auto) % (0.0-3.0) Basophils (%) (Auto) % (0.0-2.0) Differential Total Cells Counted 100 Neutrophils % (Manual) 91 % (45-75) H Lymphocytes % (Manual) 6 % (20-45) L Monocytes % (Manual) 3 % (1-10) Eosinophils % (Manual) 0 % (0-3) Basophils % (Manual) 0 % (0-2) Band Neutrophils 0 % (0-8) Platelet Estimate Adequate Platelet Morphology Normal Prothrombin Time 11.9 SEC (9.30-11.50) H Prothrombin Time INR 1.1 (0.9-1.1) Activated Partial Thromboplast Time 27 SEC (23-33) Venous Blood pH 7.482 Venous Blood Partial Pressure CO2 34.5 Venous Blood Partial Pressure O2 66.9 Venous Blood HCO3 25.2 Venous Blood Base Excess 2.1 Venous Blood Carboxyhemoglobin 2.1 % (0.5-1.5) H Methemoglobin 0.1 Microbiology Date/Time Source Procedure Growth Status 01/25/20 04:00 Nasopharynx SARS-CoV-2 RdRp Gene Assay - Final Complete (Dony Verma MD) EKG Diagnostic Results Rate: normal Rhythm: NSR ST Segments: no acute changes (Jamie Bailey MD) Rhythm Strip Diag. Results EP Interpretation: yes Rhythm: NSR, no PVC's, no ectopy (Jamie Bailey MD) Chest X-Ray Diagnostic Results Chest X-Ray Diagnostic Results : Chest X-Ray Ordered: Yes # of Views/Limited/Complete: 1 View Indication: Other EP Interpretation: Yes Interpretation: no pneumothorax, other - possible effusion R and infiltrates, portacath Impression: Other Electronically Signed by: Electronically signed by Jamie Bailey MD (Jamie Bailey MD) CT/MRI/US Diagnostic Results CT/MRI/US Diagnostic Results : Impression IMPRESSION: Patchy airspace opacities in the right upper and right middle lobes maybe associated with multifocal pneumonia. Please correlate with patient's respiratory status. Moderate intra-and extrahepatic biliary ductal dilatation. Please correlate with lab work to assess for acute biliary obstruction, which maybe associated with ampullary lesion or obstructing gallstone. If further imaging is warranted consider MRCP. Radiologist: James Santamaria M.D. Electronically Signed: 01/25/20 06:19 (Dony Verma MD) Last Vital Signs Date Time Temp Pulse Resp B/P (MAP) Pulse Ox O2 Delivery O2 Flow Rate FiO2 01/25/20 09:00 Nasal Cannula 2.0 01/25/20 08:00 98.2 92 19 137/90 (106) 98 Status: improved (Jamie Bailey MD) Disposition: ADMITTED INPATIENT Condition: Serious Jamie Bailey MD Jan 25, 2020 04:07 Dony Verma MD Jan 25, 2020 06:24
[2020-01-25] MEDS ORDERED: Omnipaque-300 100ml vial INJ PRN (04:15)
[2020-01-25 04:42] LABS: APPEARANCE,URINE CLEAR; BILIRUBIN, URINE NEGATIVE (NEGATIVE); GLUCOSE, URINE (UA) NEGATIVE (NEGATIVE); KETONES,URINE NEGATIVE (NEGATIVE); LEUKOCYTE ESTERASE ,URINE NEGATIVE (NEGATIVE); NITRITE,URINE NEGATIVE (NEGATIVE); PH,URINE 7 (4.5-8.0); PROTEIN,URINE NEGATIVE (NEGATIVE); UROBILINOGEN,URINE 4 MG/DL (0.0-1.0)
[2020-01-25 04:52] LABS: INR 1.1 (0.9-1.1)
[2020-01-25 04:55] LABS: ANION GAP 7 mmol/L (5-15); BLOOD UREA NITROGEN 12 mg/dL (7-18); CALCIUM 8.7 MG/DL (8.5-10.1); CARBON DIOXIDE 28 MMOL/L (21-32); CHLORIDE 99 MMOL/L (98-107); POTASSIUM 3.7 MMOL/L (3.5-5.1); SODIUM 134 MMOL/L (136-145)
[2020-01-25] MEDS ORDERED: Piperacillin/Tazobactam 3.375 GM in NS 110 ML IVPB ONE (05:00)
[2020-01-25] MEDS ORDERED: Azithromycin 500 MG in NS 275 ML IV ONE (05:00)
[2020-01-25 05:05] LABS: HEMATOCRIT 38.8 % (42.0-52.0); HEMOGLOBIN 12.9 G/DL (14.2-18.0); MEAN CORPUSCULAR VOLUME 101 FL (80-99); PLATELET COUNT 322 K/UL (150-450); RED BLOOD COUNT 3.85 M/UL (4.70-6.10); RED CELL DISTRIBUTION WIDTH 13.5 % (11.6-14.8)
[2020-01-25 05:07] LABS: WHITE BLOOD COUNT 26.8 K/UL (4.8-10.8)
[2020-01-25 05:12] LABS: ALANINE AMINOTRANSFERASE 362 U/L (12-78); ALBUMIN 2.8 G/DL (3.4-5.0); ALBUMIN/GLOBULIN RATIO 0.6 (1.0-2.7); ALKALINE PHOSPHATASE 982 U/L (46-116); ASPARTATE AMINO TRANSFERASE 495 U/L (15-37); BILIRUBIN,TOTAL 1.5 MG/DL (0.2-1.0); CREATINE KINASE 32 U/L (26-308); FERRITIN 385 NG/ML (8-388); LACTATE DEHYDROGENASE 527 U/L (81-234)
[2020-01-25 05:20] LABS: BILIRUBIN,DIRECT 1.2 MG/DL (0.0-0.3)
[2020-01-25] MEDS ORDERED: Morphine Sulfate 4mg/ml Inj (IV USE ONLY) IVP ONE (05:30)
[2020-01-25 06:13] LABS: COLOR,URINE YELLOW
--- NOTE | 2020-01-25 06:20 | Diagnostic Imaging Report ---
EXAM: CT Abdomen and Pelvis With Intravenous Contrast CLINICAL HISTORY: ABD PAIN TECHNIQUE: Axial computed tomography images of the abdomen and pelvis with intravenous contrast. CTDI is 3.40 mGy and DLP is 168.90 mGy-cm. One or more of the following dose reduction techniques were used: automated exposure control, adjustment of the mA and/or kV according to patient size, use of iterative reconstruction technique. COMPARISON: No relevant prior studies available. FINDINGS: Lung bases: Patchy airspace consolidation is seen within the right middle and right lower lobes. There is a partially loculated right pleural effusion with a subpulmonic component, as well as a prominent component within the right major fissure. ABDOMEN: Liver: Unremarkable. No mass. Gallbladder and bile ducts: There is moderate to marked intra-and extrahepatic biliary ductal dilatation, with the common bile duct measuring up to 15 mm in diameter. Pancreas: Unremarkable. No mass. No ductal dilation. Spleen: Unremarkable. No splenomegaly. Adrenals: Unremarkable. No mass. Kidneys and ureters: Unremarkable. No solid mass. No hydronephrosis. Stomach and bowel: Postsurgical changes seen regional to the gastroesophageal junction. No evidence of bowel obstruction. No definite bowel wall thickening. PELVIS: Appendix: No findings to suggest acute appendicitis. Bladder: Moderate distention of the urinary bladder. No bladder wall thickening. No intraluminal calculi. Reproductive: Penile prosthesis in place. ABDOMEN and PELVIS: Intraperitoneal space: Unremarkable. No free air. No significant fluid collection. Bones/joints: No acute fracture. No dislocation. Soft tissues: Unremarkable. Vasculature: Unremarkable. No abdominal aortic aneurysm. Lymph nodes: Unremarkable. No enlarged lymph nodes. IMPRESSION: Patchy airspace opacities in the right upper and right middle lobes may be associated with multifocal pneumonia. Please correlate with patient's respiratory status. Moderate intra-and extrahepatic biliary ductal dilatation. Please correlate with lab work to assess for acute biliary obstruction, which may be associated with ampullary lesion or obstructing gallstone. If further imaging is warranted consider MRCP.
[2020-01-25] MEDS ORDERED: Morphine Sulfate 2mg/ml Inj(IV/IM USE ONLY) IVP PRN (08:45)
--- NOTE | 2020-01-25 12:00 | Consultation ---
DATE OF CONSULTATION: 01/25/2020 INFECTIOUS DISEASES CONSULTATION CONSULTING PHYSICIAN: Georgina Kang MD. REFERRING PHYSICIAN: Ralf Lopez MD. REASON FOR CONSULTATION: Pneumonia. HISTORY OF PRESENTING ILLNESS: This is a 74-year-old gentleman with history of lung cancer, status post chemotherapy, prior history of duodenectomy, who comes in with abdominal pain along with nausea and vomiting. There was a concern for pneumonia and he has also been coughing and an Infectious Diseases consultation has been obtained for antibiotics. PAST MEDICAL HISTORY: 1. History of cirrhosis. 2. History of lung cancer, status post chemotherapy. 3. History of duodenectomy. 4. History of hernia repair. 5. History of retinal surgery. SOCIAL HISTORY: He used to be a smoker, he does not smoke anymore. He used to drink alcohol, he does not drink anymore. No history of drug use. FAMILY HISTORY: Noncontributory. REVIEW OF SYSTEMS: RESPIRATORY: No fever or chills. He has cough. No shortness of breath or chest pain. CARDIAC: No chest pain. No palpitation. No dizziness. No syncope. GASTROINTESTINAL: He has nausea and vomiting. He has abdominal pain. No diarrhea. MEDICATIONS: As an inpatient, he is on Levaquin, Flagyl, morphine. ALLERGIES: 1. Codeine. 2. Ibuprofen. PHYSICAL EXAMINATION: VITAL SIGNS: Temperature of 98.2, T-max of 98.2, pulse of 92, respiratory rate 19, blood pressure 137/90, O2 saturation of 98%. HEENT: Pupils equally reactive to light and accommodation. Mouth appears clean without thrush. NECK: Supple. No adenopathy. No JVD. CARDIOVASCULAR: Regular rate and rhythm. No murmurs. LUNGS: Clear to auscultation bilaterally. No crackles. No wheezes. Right subclavian catheter noted. ABDOMEN: Soft, nontender. No organomegaly. EXTREMITIES: No cyanosis, no clubbing, no edema. LABORATORY AND DIAGNOSTIC DATA: White count 26.8, hemoglobin 12.9, hematocrit 38.8, MCV 101, platelet count of 322 with neutrophils of 91%. Sodium 134, potassium 3.7, chloride 99, bicarb 28, BUN 12, creatinine 1, glucose 169, calcium 8.7. Total bilirubin 1.5, direct bilirubin 1.2. AST 495, ALT 362, alkaline phosphatase 982. LDH 527. CK of 32. C-reactive protein of 3. Beta natriuretic peptide 247. Total protein 7.2. Albumin 2.8. Lipase of 51. UA is negative. COVID-[address] abdomen and pelvis showing patchy airspace opacities in the right upper and right middle lobes, may be associated with multifocal pneumonia. Moderate intra and extrahepatic biliary ductal dilatation, may be associated with ampullary lesion. No obstructing gallstone. ASSESSMENT: This is a 74-year-old gentleman with history of cirrhosis, lung cancer, status post chemotherapy, duodenectomy, who comes in with abdominal pain as well as vomiting and cough and was found to have, 1. Possible aspiration pneumonia. 2. Elevated liver function tests would be concerned regarding cholangitis or cholecystitis. 3. History of cirrhosis. 4. History of lung cancer. 5. Leukocytosis. PLAN: 1. Discontinue Levaquin and Flagyl. 2. We will start the patient on Zosyn. 3. We will order a HIDA scan. 4. We will order sputum for Gram stain and culture. 5. We will follow up cultures and adjust antibiotics accordingly. I would like to thank, Dr. Lopez for this consultation. Georgina Kang M.D. DR: JC JOB#: [id number] CC: Ralf Lopez MD.; Fax#: [phone]
[2020-01-25] MEDS ORDERED: Morphine Sulfate 2mg/ml Inj(IV/IM USE ONLY) IVP SCH (12:15)
--- NOTE | 2020-01-25 12:37 | Diagnostic Imaging Report ---
Indication: Chest pain, shortness of breath Technique: XRAY Chest 1v Comparison: 08/17/2009 Findings: Heart size is within normal limits. There is interval placement of a right-sided chest wall Mediport which is currently accessed with a Shelton needle. Multiple surgical clips project over the epigastric region as well as in the region of the right lower hilum. There are some patchy opacities in the right lung and more dense consolidation at the lateral right base. Small right pleural effusion is also noted. No evidence of pneumothorax. Bones are demineralized and there are degenerative changes in the spine. No acute osseous amount. IMPRESSION: The focal right-sided airspace opacities which may potentially be related to pneumonia. Given the presence of indwelling chest wall Mediport suggesting possible chemotherapy, the possibility that these opacities may be related to neoplastic disease/tumor not excluded, particularly the consolidation in the lateral right base. Clinical correlation and follow up recommended.
--- NOTE | 2020-01-25 14:23 | Cardiology Report ---
APPROVED REPORT EKG Measurement Heart [id number] ID [id number] <Conclusion> Normal sinus rhythm Septal infarct, age undetermined Abnormal ECG
--- NOTE | 2020-01-25 15:30 | Consultation ---
DATE OF CONSULTATION: 01/25/2020 GASTROENTEROLOGY CONSULTATION CONSULTING PHYSICIAN: Aime Mello MD. CHIEF COMPLAINT: Jaundice. HISTORY OF PRESENT ILLNESS: This is a very pleasant unfortunate 74-year-old male with past medical history of lung cancer, currently on chemotherapy, history of cirrhosis since 2008 according to the patient secondary to the alcohol, presents to the hospital complaining of abdominal pain and vomiting. In the ER, the patient had a CT of the abdomen and pelvis showed evidence of dilated common bile duct, so GI consult requested for evaluation. PAST MEDICAL HISTORY: 1. History of cirrhosis. 2. History of lung cancer, on chemotherapy. 3. History of duodenectomy. 4. Hernia repair. 5. History of retinal surgery. ALLERGIES: Codeine and ibuprofen. MEDICATIONS: Please see medication reconciliation list. SOCIAL HISTORY: The patient has prior history of alcohol, but he quit. No tobacco abuse. No IV drug abuse. FAMILY HISTORY: Noncontributory. REVIEW OF SYSTEMS: A 10-point review of systems was performed and pertinent positives in HPI. PHYSICAL EXAMINATION: GENERAL: Cachectic looking male. VITAL SIGNS: Temperature is 98.2, pulse 92, respirations 19, blood pressure 137/90. HEENT: Normocephalic and atraumatic. Mild pale conjunctivae. NECK: Supple. No evidence of obvious lymphadenopathy. CARDIOVASCULAR: Tachy, regular rate. Plus S1-S2. LUNGS: Decreased breath sounds bilaterally and diffusely on the supine exam. ABDOMEN: Soft, nontender. No rebound. No guarding. No peritoneal sign. EXTREMITIES: No cyanosis, no clubbing, no edema. LABORATORY DATA: White count is 26,000, hemoglobin 12, hematocrit 38, platelet count 322,000. Chem-7 - sodium 134, potassium 3.7, BUN 12, creatinine 1.0. Liver function tests, total bilirubin is 1.5, direct bilirubin 1.2, AST of 495, ALT of 362, alkaline phosphatase of 982. ASSESSMENT: This is a 74-year-old male with history of lung cancer, admitted to the hospital with fever, sepsis, questionable pneumonia, questionable cholangitis. Also, he has history of cirrhosis. PLAN: 1. Antibiotics per ID. 2. IV fluids for hydration. 3. We are going to do an MRCP to evaluate for CBD stone or CBD obstruction. 4. Check ammonia level for tomorrow morning. 5. Check PT, PTT. 6. We will follow closely and make further recommendation as we go along. Aime Mello M.D. DR: MARLENI JOB#: [id number] CC:
--- NOTE | 2020-01-25 15:30 | Consultation ---
History of Present Illness General Date patient seen: Jan 25, 2020 Reason for Hospitalization: Pain Present Illness HPI This is a 74-year-old male with multiple medical history who presents from home with a complaint of abdominal pain and vomiting that began at 7 PM last night. States abdominal pain diffuse and he draws both of his hands across the lower part of the abdomen. He said it radiates somewhat to his back also. He has not had this pain before. He is denies change in his bowels, hematochezia or melena or bright red blood. In addition he has been vomiting up food stuff. In the back of the ambulance he vomited up some oatmeal. The patient has a history of metastatic lung CA and began chemotherapy 3 weeks ago. He has a Port-A-Cath. He has been losing weight. He has been trying to get nutritional supplements but has been unable to recently. The patient also has a history of cirrhosis. Hx of hernia repair. In ED noted to have leukocytosis, abnormal lfts' elevated t bili. lipase nml. surgery called to evaluate and assist with care. Allergies: Coded Allergies: CODEINE (Verified Allergy, Intermediate, VOMITING, 12/31/16) IBUPROFEN (Verified Adverse Reaction, Severe, RED FACE, 12/31/16) pt has cirrhosis of liver COVID-19 Screening Contact w/high risk pt: No Experienced COVID-19 symptoms?: No Medication History Scheduled Aspirin* (Aspirin*), 325 MG ORAL DAILY, (Reported) Ciprofloxacin Hcl (Ciloxan), 0.5 INCH OP TID Furosemide* (Lasix*), 20 MG ORAL DAILY, (Reported) Prednisone* (Prednisone*), 10 MG ORAL DAILY, (Reported) Spironolactone (Aldactone), 25 MG ORAL DAILY, (Reported) Spironolactone* (Spironolactone*), 20 MG ORAL DAILY, (Reported) Tamsulosin HCl (Flomax), 0.4 MG ORAL DAILY, (Reported) Miscellaneous Medications Albuterol Sulfate (Ventolin Hfa), 2 PUFFS INH, (Reported) Aspirin (Aspirin), 81 MG PO, (Reported) Ferric Carboxymaltose (Injectafer), 750 MG, (Reported) Ferrous Gluconate (Fergon), Unknown Dose PO, (Reported) Testosterone (Testosterone), Unknown Dose TD, (Reported) Patient History History Provided By: Patient, Medical Record, PMD Healthcare decision maker Resuscitation status Advanced Directive on File Past Medical/Surgical History Past Medical/Surgical History: (1) Liver cirrhosis (2) penile prosthesis implant (3) Metastatic primary lung cancer (4) Right lower lobe pneumonia (5) Abdominal pain Review of Systems Review of Symptoms General ROS: no weight loss or fever Psychological ROS: no depression or mood changes, no memory loss Ophthalmic ROS: no visual changes or eye irritation ENT ROS: no nasal congestion, hearing loss, dizziness Allergy and Immunology ROS: no allergic symptoms or urticaria Hematological and Lymphatic ROS: no swollen glands, unusual bleeding or bruising Endocrine ROS: no polyuria, polydipsia, weight changes, temperature intolerance Respiratory ROS: no cough, shortness of breath, or wheezing Cardiovascular ROS: no chest pain or dyspnea on exertion Gastrointestinal ROS: ++ abdominal pain, --bright red blood in stool. Musculoskeletal ROS: no myalgias or arthralgias Neurological ROS: no TIA or stroke symptoms Dermatological ROS: no new or changing skin lesions, rashes or pruritis Physical Exam Physical Exam General appearance: alert, cooperative, no distress, appears stated age Head: Normocephalic, without obvious abnormality, atraumatic Eyes: conjunctivae/corneas clear. PERRL, EOM's intact. Fundi benign Throat: Lips, mucosa, and tongue normal. Teeth and gums normal Neck: supple, symmetrical, trachea midline, no adenopathy, thyroid: not enlarged, symmetric, no tenderness/mass/nodules, no carotid bruit and no JVD Lungs: clear to auscultation bilaterally Heart: regular rate and rhythm, S1, S2 normal, no murmur, click, rub or gallop Abdomen: soft, non-tender. Bowel sounds normal. No masses, no organomegaly Extremities: extremities normal, atraumatic, no cyanosis or edema Pulses: 2+ and symmetric Skin: Skin color, texture, turgor normal. No rashes or lesions Neurologic: Grossly normal Last 24 Hour Vital Signs Date Time Temp Pulse Resp B/P (MAP) Pulse Ox O2 Delivery O2 Flow Rate FiO2 01/25/20 12:45 84/57 (66) 01/25/20 12:00 96.9 138 20 86/61 (69) 98 01/25/20 12:00 114 01/25/20 09:00 Nasal Cannula 2.0 01/25/20 08:00 98.2 92 19 137/90 (106) 98 01/25/20 08:00 87 01/25/20 06:37 98.0 01/25/20 06:34 98.0 93 18 140/90 100 01/25/20 06:01 80 18 140/90 100 01/25/20 05:13 98.0 01/25/20 04:08 98.1 83 20 130/82 97 01/25/20 03:33 98.1 72 20 130/82 (98) 97 Intake and Output 01/24/20 01/25/20 19:00 07:00 Intake Total 2385 ml Balance 2385 ml Intake IV Total 2385 ml # Voids 1 Laboratory Tests Test 01/25/20 03:45 01/25/20 04:02 01/25/20 04:03 Urine Color Yellow Urine Appearance Clear Urine pH 7 (4.5-8.0) Urine Specific [place] 1.010 (1.005-1.035) Urine Protein Negative (NEGATIVE) Urine Glucose (UA) Negative (NEGATIVE) Urine Ketones Negative (NEGATIVE) Urine Blood Negative (NEGATIVE) Urine Nitrite Negative (NEGATIVE) Urine Bilirubin Negative (NEGATIVE) Urine Urobilinogen 4 MG/DL (0.0-1.0) H Urine Leukocyte Esterase Negative (NEGATIVE) Sodium Level 134 MMOL/L (136-145) L Potassium Level 3.7 MMOL/L (3.5-5.1) Chloride Level 99 MMOL/L (98-107) Carbon Dioxide Level 28 MMOL/L (21-32) Anion Gap 7 mmol/L (5-15) Blood Urea Nitrogen 12 mg/dL (7-18) Creatinine 1.0 MG/DL (0.55-1.30) Estimat Glomerular Filtration Rate > 60 mL/min (>60) Glucose Level 169 MG/DL (74-106) H Lactic Acid Level 1.10 mmol/L (0.4-2.0) Calcium Level 8.7 MG/DL (8.5-10.1) Magnesium Level 1.8 MG/DL (1.8-2.4) Ferritin 385 NG/ML (8-388) Total Bilirubin 1.5 MG/DL (0.2-1.0) H Direct Bilirubin 1.2 MG/DL (0.0-0.3) H Aspartate Amino Transf (AST/SGOT) 495 U/L (15-37) H Alanine Aminotransferase (ALT/SGPT) 362 U/L (12-78) H Alkaline Phosphatase 982 U/L (46-116) H Lactate Dehydrogenase 527 U/L (81-234) H Total Creatine Kinase 32 U/L (26-308) Troponin I 0.000 ng/mL (0.000-0.056) C-Reactive Protein, Quantitative 3.0 mg/dL (0.00-0.90) H Pro-B-Type Natriuretic Peptide 247 pg/mL (0-125) H Total Protein 7.2 G/DL (6.4-8.2) Albumin 2.8 G/DL (3.4-5.0) L Globulin 4.4 g/dL Albumin/Globulin Ratio 0.6 (1.0-2.7) L Lipase 51 U/L (73-393) L White Blood Count 26.8 K/UL (4.8-10.8) *H Red Blood Count 3.85 M/UL (4.70-6.10) L Hemoglobin 12.9 G/DL (14.2-18.0) L Hematocrit 38.8 % (42.0-52.0) L Mean Corpuscular Volume 101 FL (80-99) H Mean Corpuscular Hemoglobin 33.6 PG (27.0-31.0) H Mean Corpuscular Hemoglobin Concent 33.4 G/DL (32.0-36.0) Red Cell Distribution Width 13.5 % (11.6-14.8) Platelet Count 322 K/UL (150-450) Mean Platelet Volume 6.3 FL (6.5-10.1) L Neutrophils (%) (Auto) % (45.0-75.0) Lymphocytes (%) (Auto) % (20.0-45.0) Monocytes (%) (Auto) % (1.0-10.0) Eosinophils (%) (Auto) % (0.0-3.0) Basophils (%) (Auto) % (0.0-2.0) Differential Total Cells Counted 100 Neutrophils % (Manual) 91 % (45-75) H Lymphocytes % (Manual) 6 % (20-45) L Monocytes % (Manual) 3 % (1-10) Eosinophils % (Manual) 0 % (0-3) Basophils % (Manual) 0 % (0-2) Band Neutrophils 0 % (0-8) Platelet Estimate Adequate Platelet Morphology Normal Prothrombin Time 11.9 SEC (9.30-11.50) H Prothromb Time International Ratio 1.1 (0.9-1.1) Activated Partial Thromboplast Time 27 SEC (23-33) Venous Blood pH 7.482 Venous Blood Partial Pressure CO2 34.5 Venous Blood Partial Pressure O2 66.9 Venous Blood HCO3 25.2 Venous Blood Base Excess 2.1 Venous Blood Carboxyhemoglobin 2.1 % (0.5-1.5) H Methemoglobin 0.1 Microbiology Date/Time Source Procedure Growth Status 01/25/20 04:00 Nasopharynx SARS-CoV-2 RdRp Gene Assay - Final Complete Height (Feet): 5 Height (Inches): 10.00 Weight (Pounds): 125 Medications Current Medications Medications (Trade) Dose Ordered Sig/Kayla Route PRN Reason Start Time Stop Time Status Last Admin Dose Admin Iohexol (OMNIPAQUE-300 100ml) 100 ml NOW PRN INJ Radiology Procedure 01/25/20 04:15 01/27/20 04:14 Morphine Sulfate (Morphine Sulfate) 1 mg Q4H PRN IVP For Pain 01/25/20 08:45 02/01/20 08:44 01/25/20 10:22 Piperacillin Sod/ Tazobactam Sod 3.375 gm/Sodium Chloride 110 ml @ 27.5 mls/hr EVERY 8 HOURS IVPB 01/25/20 14:00 01/30/20 13:59 Sodium Chloride 1,000 ml @ 100 mls/hr Q10H IV 01/25/20 08:45 02/24/20 08:44 01/25/20 10:14 Assessment/Plan Problem List: (1) Metastatic primary lung cancer Assessment & Plan: as per oncology input appreciated ICD Codes: C34.90 - Malignant neoplasm of unspecified part of unspecified b ronchus or lung SNOMED: 94981898, 365262338 Qualifiers: Qualified Codes: C34.91 - Malignant neoplasm of unspecified part of right bronchus or lung (2) Right lower lobe pneumonia ICD Codes: J18.9 - Pneumonia, unspecified organism SNOMED: 591429600, [id number] Qualifiers: Qualified Codes: J18.9 - Pneumonia, unspecified organism (3) Liver cirrhosis ICD Codes: K74.60 - Unspecified cirrhosis of liver SNOMED: 50908673 (4) Abdominal pain Assessment & Plan: lft's elevated possible cholecystitis pending MRCP pending HIDA US ordered npo iv fluids iv abx trend labs will follow with recs ABDOMEN: Liver: Unremarkable. No mass. Gallbladder and bile ducts: There is moderate to marked intra-and extrahepatic biliary ductal dilatation, with the common bile duct measuring up to 15 mm in diameter. Pancreas: Unremarkable. No mass. No ductal dilation. Spleen: Unremarkable. No splenomegaly. Adrenals: Unremarkable. No mass. Kidneys and ureters: Unremarkable. No solid mass. No hydronephrosis. Stomach and bowel: Postsurgical changes seen regional to the gastroesophageal junction. No evidence of bowel obstruction. No definite bowel wall thickening. PELVIS: Appendix: No findings to suggest acute appendicitis. Bladder: Moderate distention of the urinary bladder. No bladder wall thickening. No intraluminal calculi. Reproductive: Penile prosthesis in place. ABDOMEN and PELVIS: Intraperitoneal space: Unremarkable. No free air. No significant fluid collection. Bones/joints: No acute fracture. No dislocation. Soft tissues: Unremarkable. Vasculature: Unremarkable. No abdominal aortic aneurysm. Lymph nodes: Unremarkable. No enlarged lymph nodes. IMPRESSION: Patchy airspace opacities in the right upper and right middle lobes may be associated with multifocal pneumonia. Please correlate with patient's respiratory status. Moderate intra-and extrahepatic biliary ductal dilatation. Please correlate with lab work to assess for acute biliary obstruction, which may be associated with ampullary lesion or obstructing gallstone. If further imaging is warranted consider MRCP. ICD Codes: R10.9 - Unspecified abdominal pain SNOMED: 47228570, 601908390 Qualifiers: Qualified Codes: R10.30 - Lower abdominal pain, unspecified (5) penile prosthesis implant Bryan Garcia Jan 25, 2020 15:30
[2020-01-25] MEDS: Piperacillin/Tazobactam 3.375 GM in NS 110 ML IVPB SCH ×2 (16:00→22:37)
--- NOTE | 2020-01-25 19:04 | Diagnostic Imaging Report ---
Indication: Abdominal pain and abnormal liver function tests, vomiting Technique: Coronal and axial single shot fast spin-echo breath-hold, axial T2 FRFSE, 2-D thick slab MRCP, AXIAL 2-D FIESTA fat saturated, axial 3-D dual echo breath-hold, water weighted axial LAVA FLEX, revealed 3-D MRCP images were obtained of the abdomen. MIP reconstructions were generated of the bile ducts Comparison: CT scan and nuclear medicine hepatobiliary scan of earlier the same day Findings: There is dilatation of the extrahepatic bile ducts, common bile duct measuring up to 14 mm in diameter. Multiple calculi are seen in the downstream common bile duct, largest measuring 9 mm in diameter. There is also intrahepatic biliary ductal dilatation. Multiple calculi are demonstrated within the gallbladder. The gallbladder wall does not appear particularly thickened. However, free intraperitoneal fluid is seen over the dome of the liver and to a slight extent within the dinesh hepatis. The liver is mildly enlarged. There is considerable edema of the periportal fat. No focal hepatic abnormality. The pancreas is not well visualized. No definite pancreatic ductal dilatation. The adrenals are grossly unremarkable, left adrenal somewhat bulky. The left kidney is unremarkable. The right kidney demonstrates a few small cysts. There is bilateral perinephric fluid. The urinary bladder is markedly distended. There is a small to moderate amount of pleural fluid in the right hemithorax. Impression: Cholelithiasis Choledocholithiasis, resulting in marked extrahepatic and central intrahepatic biliary ductal dilatation. Mild hepatomegaly Edema of the periportal fat. This is a nonspecific finding. Can be seen in inflammation, congestive heart failure, among other possibilities Small to moderate right pleural fluid Bilateral perinephric fluid. This is nonspecific, could indicate acute inflammation, however. Small right renal cysts Distended urinary bladder Findings discussed by phone with Dr. Mello at the time of interpretation
--- NOTE | 2020-01-25 19:12 | Diagnostic Imaging Report ---
Indications: Abnormal liver function tests and abdominal pain Technique: IV administration 5.8 mCi 99 M technetium Choletec. Serial images obtained over the abdomen for one hour Comparison: CT scan earlier the same day, subsequent MRCP Findings: Prompt tracer uptake within the liver. No biliary activity demonstrated. Impression: Normal liver uptake. Absent biliary excretion. This is probably due to high-grade biliary obstruction demonstrated on subsequent MRCP secondary to choledocholithiasis Findings previously phoned to Dr. Mello
[2020-01-25] MEDS ORDERED: NS 500ML ONE (21:42)
[2020-01-25] MEDS ORDERED: NS 275ml ONE (21:42)
[2020-01-26] VITALS: BP 86/56
[2020-01-26 04:00] VITALS: BP 85/60
--- NOTE | 2020-01-26 06:29 | Consultation ---
History of Present Illness General Chief Complaint: Pain Present Illness Allergies: Coded Allergies: CODEINE (Verified Allergy, Intermediate, VOMITING, 12/31/16) IBUPROFEN (Verified Adverse Reaction, Severe, RED FACE, 12/31/16) pt has cirrhosis of liver Medication History Scheduled Aspirin* (Aspirin*), 325 MG ORAL DAILY, (Reported) Ciprofloxacin Hcl (Ciloxan), 0.5 INCH OP TID Furosemide* (Lasix*), 20 MG ORAL DAILY, (Reported) Prednisone* (Prednisone*), 10 MG ORAL DAILY, (Reported) Spironolactone (Aldactone), 25 MG ORAL DAILY, (Reported) Spironolactone* (Spironolactone*), 20 MG ORAL DAILY, (Reported) Tamsulosin HCl (Flomax), 0.4 MG ORAL DAILY, (Reported) Miscellaneous Medications Albuterol Sulfate (Ventolin Hfa), 2 PUFFS INH, (Reported) Aspirin (Aspirin), 81 MG PO, (Reported) Ferric Carboxymaltose (Injectafer), 750 MG, (Reported) Ferrous Gluconate (Fergon), Unknown Dose PO, (Reported) Testosterone (Testosterone), Unknown Dose TD, (Reported) Patient History Healthcare decision maker Resuscitation status Advanced Directive on File Physical Exam Last 24 Hour Vital Signs Date Time Temp Pulse Resp B/P (MAP) Pulse Ox O2 Delivery O2 Flow Rate FiO2 01/26/20 04:00 87 01/26/20 00:00 97 01/26/20 00:00 98.0 98 24 86/56 (66) 97 01/25/20 21:00 108 01/25/20 21:00 Nasal Cannula 2.0 01/25/20 20:57 97.9 105 20 70/50 (57) 97 01/25/20 16:19 98.2 103 20 79/51 (60) 100 01/25/20 16:00 108 01/25/20 12:45 84/57 (66) 01/25/20 12:00 96.9 138 20 86/61 (69) 98 01/25/20 12:00 114 01/25/20 09:00 Nasal Cannula 2.0 01/25/20 08:00 98.2 92 19 137/90 (106) 98 01/25/20 08:00 87 01/25/20 06:37 98.0 01/25/20 06:34 98.0 93 18 140/90 100 Intake and Output 01/25/20 01/26/20 19:00 07:00 Intake Total 500 ml Output Total 550 ml Balance -50 ml Intake Oral 500 ml Output Urine Total 550 ml Height (Feet): 5 Height (Inches): 10.00 Weight (Pounds): 125 Medications Current Medications Medications (Trade) Dose Ordered Sig/Kayla Route PRN Reason Start Time Stop Time Status Last Admin Dose Admin Iohexol (OMNIPAQUE-300 100ml) 100 ml NOW PRN INJ Radiology Procedure 01/25/20 04:15 01/27/20 04:14 Morphine Sulfate (Morphine Sulfate) 1 mg Q4H PRN IVP For Pain 01/25/20 08:45 02/01/20 08:44 01/25/20 10:22 Piperacillin Sod/ Tazobactam Sod 3.375 gm/Sodium Chloride 110 ml @ 27.5 mls/hr EVERY 8 HOURS IVPB 01/25/20 14:00 01/30/20 13:59 01/25/20 22:37 Sodium Chloride 1,000 ml @ 100 mls/hr Q10H IV 01/25/20 08:45 02/24/20 08:44 01/26/20 04:09 Vancomycin HCl ([facility] pharmacy to dose) 1 ea DAILY MISC 01/26/20 09:00 02/25/20 08:59 Vancomycin HCl 1 gm/Dextrose 275 ml @ 183.708 mls/hr Q24H IVPB 01/27/20 02:00 02/01/20 01:59 Assessment/Plan Assessment/Plan: Oncology Consultation PUSHPA ELAINE: Emani Lopez [facility]: Metastatic lung cancer DOS: 01/26/2020 ID 74-year-old male with multiple medical history who presents from home with a complaint of abdominal pain and vomiting that began at 7 PM last night. States abdominal pain diffuse and he draws both of his hands across the lower part of the abdomen. He said it radiates somewhat to his back also. He has not had this pain before. He is denies change in his bowels, hematochezia or melena or bright red blood. In addition he has been vomiting up food stuff. In the back of the ambulance he vomited up some oatmeal. The patient has a history of metastatic lung CA and began chemotherapy 3 weeks ago. He has a Port-A-Cath. He has been losing weight. He has been trying to get nutritional supplements but has been unable to recently. The patient also has a history of cirrhosis. Hx of hernia repair. In ED noted to have leukocytosis, abnormal lfts' elevated t bili. lipase nml. Allergies: CODEINE (Verified Allergy, Intermediate, VOMITING, 12/31/16) IBUPROFEN (Verified Adverse Reaction, Severe, RED FACE, 12/31/16) pt has cirrhosis of liver COVID-19 Screening Contact w/high risk pt: No Experienced COVID-19 symptoms?: No Medication History Scheduled Aspirin* (Aspirin*), 325 MG ORAL DAILY, (Reported) Ciprofloxacin Hcl (Ciloxan), 0.5 INCH OP TID Furosemide* (Lasix*), 20 MG ORAL DAILY, (Reported) Prednisone* (Prednisone*), 10 MG ORAL DAILY, (Reported) Spironolactone (Aldactone), 25 MG ORAL DAILY, (Reported) Spironolactone* (Spironolactone*), 20 MG ORAL DAILY, (Reported) Tamsulosin HCl (Flomax), 0.4 MG ORAL DAILY, (Reported) Miscellaneous Medications Albuterol Sulfate (Ventolin Hfa), 2 PUFFS INH, (Reported) Aspirin (Aspirin), 81 MG PO, (Reported) Ferric Carboxymaltose (Injectafer), 750 MG, (Reported) Ferrous Gluconate (Fergon), Unknown Dose PO, (Reported) Testosterone (Testosterone), Unknown Dose TD, (Reported) Patient History History Provided By: Patient, Medical Record, PMD Healthcare decision maker Resuscitation status Advanced Directive on File Past Medical/Surgical History: (1) Liver cirrhosis (2) penile prosthesis implant (3) Metastatic primary lung cancer (4) Right lower lobe pneumonia (5) Abdominal pain Review of Symptoms General ROS: no weight loss or fever Psychological ROS: no depression or mood changes, no memory loss Ophthalmic ROS: no visual changes or eye irritation ENT ROS: no nasal congestion, hearing loss, dizziness Allergy and Immunology ROS: no allergic symptoms or urticaria Hematological and Lymphatic ROS: no swollen glands, unusual bleeding or bruising Endocrine ROS: no polyuria, polydipsia, weight changes, temperature intolerance Respiratory ROS: no cough, shortness of breath, or wheezing Cardiovascular ROS: no chest pain or dyspnea on exertion Gastrointestinal ROS: ++ abdominal pain, --bright red blood in stool. Musculoskeletal ROS: no myalgias or arthralgias Neurological ROS: no TIA or stroke symptoms Dermatological ROS: no new or changing skin lesions, rashes or pruritis Physical Exam General appearance: alert, cooperative, no distress, appears stated age Heent: Lips, mucosa, and tongue normal. Teeth and gums normal Neck: supple, symmetrical, trachea midlin Lungs: clear to auscultation bilaterally Heart: regular rate and rhythm, S1, S2 normal, no murmur, click, rub or gallop Abdomen: soft, non-tender. Bowel sounds normal. No masses, no organomegaly Extremities: extremities normal, atraumatic, no cyanosis or edema Skin: Skin color, texture, turgor normal Neurologic: Grossly normal Labs: noted Imaginng: reviewed Assessment and Recs # Metastatic primary lung cancer, recently started on chemotherapy at [facility] with Dr. 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 # Dvt ppx scds Appreciate consultation and Artie Castillo RN, MD Jan 26, 2020 06:29
[2020-01-26] MEDS ORDERED: Milk of Magnesia 30ml Ud ORAL PRN (06:30)
[2020-01-26] MEDS: Piperacillin/Tazobactam 3.375 GM in NS 110 ML IVPB SCH ×3 (07:30→21:06)
[2020-01-26 07:47] LABS: HEMATOCRIT 32.7 % (42.0-52.0); HEMOGLOBIN 10.6 G/DL (14.2-18.0); MEAN CORPUSCULAR VOLUME 101 FL (80-99); PLATELET COUNT 204 K/UL (150-450); RED BLOOD COUNT 3.25 M/UL (4.70-6.10); RED CELL DISTRIBUTION WIDTH 14.5 % (11.6-14.8)
[2020-01-26 07:51] LABS: WHITE BLOOD COUNT 46.5 K/UL (4.8-10.8)
[2020-01-26 08:00] VITALS: BP 88/61
[2020-01-26 08:13] LABS: ALANINE AMINOTRANSFERASE 223 U/L (12-78); ALBUMIN/GLOBULIN RATIO 0.5 (1.0-2.7); ALKALINE PHOSPHATASE 648 U/L (46-116); ANION GAP 9 mmol/L (5-15); ASPARTATE AMINO TRANSFERASE 185 U/L (15-37); BILIRUBIN,TOTAL 2.4 MG/DL (0.2-1.0); BLOOD UREA NITROGEN 23 mg/dL (7-18); CALCIUM 7.6 MG/DL (8.5-10.1); CARBON DIOXIDE 25 MMOL/L (21-32); CHLORIDE 103 MMOL/L (98-107); CREATININE 1.2 MG/DL (0.55-1.30); SODIUM 137 MMOL/L (136-145)
[2020-01-26 08:16] LABS: BILIRUBIN,DIRECT 2.2 MG/DL (0.0-0.3)
[2020-01-26 09:05] LABS: % IRON SATURATION 3 % (15-50); IRON 6 ug/dL (50-175); TOTAL IRON BINDING CAPACITY 217 ug/dL (250-450)
--- NOTE | 2020-01-26 11:28 | Infectious Diseases Prog Note ---
Assessment/Plan Assessment/Plan A: 1. Possible aspiration pneumonia. 2. Choledocholithiasis 3. History of cirrhosis. 4. Metastatic lung cancer. 5. Leukocytosis worsening 6. Anemia PLAN: 1. continue Zosyn & Vancomycin 2. Plan by GI specialist 3. We will follow up cultures and adjust antibiotics accordingly. Subjective ROS Limited/Unobtainable: No Constitutional: Reports: no symptoms Respiratory: Reports: productive cough Cardiovascular: Reports: no symptoms Gastrointestinal/Abdominal: Reports: no symptoms, other - on liquid diet Genitourinary: Reports: no symptoms Allergies: Coded Allergies: CODEINE (Verified Allergy, Intermediate, VOMITING, 12/31/16) IBUPROFEN (Verified Adverse Reaction, Severe, RED FACE, 12/31/16) pt has cirrhosis of liver Objective Last 24 Hour Vital Signs Date Time Temp Pulse Resp B/P (MAP) Pulse Ox O2 Delivery O2 Flow Rate FiO2 01/26/20 08:00 97.5 96 20 88/61 (70) 95 01/26/20 04:00 98.0 88 24 85/60 (68) 98 01/26/20 04:00 87 01/26/20 00:00 97 01/26/20 00:00 98.0 98 24 86/56 (66) 97 01/25/20 21:00 108 01/25/20 21:00 Nasal Cannula 2.0 01/25/20 20:57 97.9 105 20 70/50 (57) 97 01/25/20 16:19 98.2 103 20 79/51 (60) 100 01/25/20 16:00 108 01/25/20 12:45 84/57 (66) 01/25/20 12:00 96.9 138 20 86/61 (69) 98 01/25/20 12:00 114 Height (Feet): 5 Height (Inches): 10.00 Weight (Pounds): 125 General Appearance: cachetic HEENT: mucous membranes moist Respiratory/Chest: decreased breath sounds, other - oxygen by nasal cannula Cardiovascular: normal rate, other - R chest Port Abdomen: soft, non tender Extremities: no edema Neurologic/Psychiatric: abnormal gait, alert, oriented x 3 Microbiology Date/Time Source Procedure Growth Status 01/25/20 05:00 Blood Blood Culture - Preliminary Resulted 01/25/20 04:50 Blood Blood Culture - Preliminary Resulted 01/25/20 04:00 Nasopharynx SARS-CoV-2 RdRp Gene Assay - Final Complete Laboratory Tests Test 01/26/20 06:30 01/26/20 07:17 Stool Occult Blood Pending White Blood Count 46.5 K/UL (4.8-10.8) #*H Red Blood Count 3.25 M/UL (4.70-6.10) L Hemoglobin 10.6 G/DL (14.2-18.0) L Hematocrit 32.7 % (42.0-52.0) L Mean Corpuscular Volume 101 FL (80-99) H Mean Corpuscular Hemoglobin 32.6 PG (27.0-31.0) H Mean Corpuscular Hemoglobin Concent 32.4 G/DL (32.0-36.0) Red Cell Distribution Width 14.5 % (11.6-14.8) Platelet Count 204 K/UL (150-450) Mean Platelet Volume 7.5 FL (6.5-10.1) Neutrophils (%) (Auto) % (45.0-75.0) Lymphocytes (%) (Auto) % (20.0-45.0) Monocytes (%) (Auto) % (1.0-10.0) Eosinophils (%) (Auto) % (0.0-3.0) Basophils (%) (Auto) % (0.0-2.0) Differential Total Cells Counted 100 Neutrophils % (Manual) 81 % (45-75) H Lymphocytes % (Manual) 1 % (20-45) L Monocytes % (Manual) 2 % (1-10) Eosinophils % (Manual) 0 % (0-3) Basophils % (Manual) 0 % (0-2) Metamyelocytes % 1 % (0-0) H Band Neutrophils 15 % (0-8) H Platelet Estimate Adequate Platelet Morphology Normal Anisocytosis 1+ Macrocytosis 1+ Sodium Level 137 MMOL/L (136-145) Potassium Level 4.0 MMOL/L (3.5-5.1) Chloride Level 103 MMOL/L (98-107) Carbon Dioxide Level 25 MMOL/L (21-32) Anion Gap 9 mmol/L (5-15) Blood Urea Nitrogen 23 mg/dL (7-18) H Creatinine 1.2 MG/DL (0.55-1.30) Estimat Glomerular Filtration Rate 59.0 mL/min (>60) Glucose Level 99 MG/DL (74-106) Calcium Level 7.6 MG/DL (8.5-10.1) L Iron Level 6 ug/dL (50-175) L Total Iron Binding Capacity 217 ug/dL (250-450) L Percent Iron Saturation 3 % (15-50) L Unsaturated Iron Binding 211 ug/dL (112-346) Total Bilirubin 2.4 MG/DL (0.2-1.0) H Direct Bilirubin 2.2 MG/DL (0.0-0.3) H Aspartate Amino Transf (AST/SGOT) 185 U/L (15-37) H Alanine Aminotransferase (ALT/SGPT) 223 U/L (12-78) H Alkaline Phosphatase 648 U/L (46-116) H Ammonia 23 umol/L (11-32) Total Protein 5.9 G/DL (6.4-8.2) L Albumin 2.0 G/DL (3.4-5.0) L Globulin 3.9 g/dL Albumin/Globulin Ratio 0.5 (1.0-2.7) L Vitamin B12 Level > 2000 PG/ML (193-986) H Folate 19.4 NG/ML (8.6-58.9) Current Medications Medications (Trade) Dose Ordered Sig/Kayla Route PRN Reason Start Time Stop Time Status Last Admin Dose Admin Chlorhexidine Gluconate (Jyoti-Hex 2%) 1 applic DAILY@2000 TOPIC 01/26/20 20:00 04/25/20 19:59 Iohexol (OMNIPAQUE-300 100ml) 100 ml NOW PRN INJ Radiology Procedure 01/25/20 04:15 01/27/20 04:14 Magnesium Hydroxide (Mom) 30 ml DAILYPRN PRN ORAL Constipation 01/26/20 06:30 02/25/20 06:29 Morphine Sulfate (Morphine Sulfate) 1 mg Q4H PRN IVP For Pain 01/25/20 08:45 02/01/20 08:44 01/25/20 10:22 Piperacillin Sod/ Tazobactam Sod 3.375 gm/Sodium Chloride 110 ml @ 27.5 mls/hr EVERY 8 HOURS IVPB 01/25/20 14:00 01/30/20 13:59 01/26/20 07:30 Sodium Chloride 1,000 ml @ 100 mls/hr Q10H IV 01/25/20 08:45 02/24/20 08:44 01/26/20 04:09 Vancomycin HCl ([facility] pharmacy to dose) 1 ea DAILY MISC 01/26/20 09:00 02/25/20 08:59 Vancomycin HCl 1 gm/Dextrose 275 ml @ 183.708 mls/hr Q24H IVPB 01/27/20 02:00 02/01/20 01:59 Aureliano Diaz MD Jan 26, 2020 11:28
[2020-01-26 12:00] VITALS: BP 87/59
--- NOTE | 2020-01-26 15:10 | General Progress Note ---
Subjective Allergies: Coded Allergies: CODEINE (Verified Allergy, Intermediate, VOMITING, 12/31/16) IBUPROFEN (Verified Adverse Reaction, Severe, RED FACE, 12/31/16) pt has cirrhosis of liver Objective Last 24 Hour Vital Signs Date Time Temp Pulse Resp B/P (MAP) Pulse Ox O2 Delivery O2 Flow Rate FiO2 01/26/20 12:00 82 01/26/20 12:00 98.1 80 20 87/59 (68) 99 01/26/20 09:00 Nasal Cannula 2.0 01/26/20 08:00 97.5 96 20 88/61 (70) 95 01/26/20 08:00 97 01/26/20 04:00 98.0 88 24 85/60 (68) 98 01/26/20 04:00 87 01/26/20 00:00 97 01/26/20 00:00 98.0 98 24 86/56 (66) 97 01/25/20 21:00 108 01/25/20 21:00 Nasal Cannula 2.0 01/25/20 20:57 97.9 105 20 70/50 (57) 97 01/25/20 16:19 98.2 103 20 79/51 (60) 100 01/25/20 16:00 108 Intake and Output 01/25/20 01/26/20 19:00 07:00 Intake Total 500 ml 600 ml Output Total 550 ml 400 ml Balance -50 ml 200 ml Intake Oral 500 ml 600 ml Output Urine Total 550 ml 400 ml Laboratory Tests 01/26/20 06:30: Stool Occult Blood [Pending] 01/26/20 07:17: White Blood Count 46.5#*H, Red Blood Count 3.25L, Hemoglobin 10.6L, Hematocrit 32.7L, Mean Corpuscular Volume 101H, Mean Corpuscular Hemoglobin 32.6H, Mean Corpuscular Hemoglobin Concent 32.4, Red Cell Distribution Width 14.5, Platelet Count 204, Mean Platelet Volume 7.5, Neutrophils (%) (Auto) , Lymphocytes (%) (Auto) , Monocytes (%) (Auto) , Eosinophils (%) (Auto) , Basophils (%) (Auto) , Differential Total Cells Counted 100, Neutrophils % (Manual) 81H, Lymphocytes % (Manual) 1L, Monocytes % (Manual) 2, Eosinophils % (Manual) 0, Basophils % (Manual) 0, Metamyelocytes % 1H, Band Neutrophils 15H, Platelet Estimate Adequate, Platelet Morphology Normal, Anisocytosis 1+, Macrocytosis 1+, Sodium Level 137, Potassium Level 4.0, Chloride Level 103, Carbon Dioxide Level 25, Anion Gap 9, Blood Urea Nitrogen 23H, Creatinine 1.2, Estimat Glomerular Filtration Rate 59.0, Glucose Level 99, Calcium Level 7.6L, Iron Level 6L, Total Iron Binding Capacity 217L, Percent Iron Saturation 3L, Unsaturated Iron Binding 211, Total Bilirubin 2.4H, Direct Bilirubin 2.2H, Aspartate Amino Transf (AST/SGOT) 185H, Alanine Aminotransferase (ALT/SGPT) 223H, Alkaline Phosphatase 648H, Ammonia 23, Total Protein 5.9L, Albumin 2.0L, Globulin 3.9, Albumin/Globulin Ratio 0.5L, Vitamin B12 Level > 2000H, Folate 19.4 Height (Feet): 5 Height (Inches): 10.00 Weight (Pounds): 125 General Appearance: no apparent distress EENT: normal ENT inspection Neck: supple Cardiovascular: normal rate Respiratory/Chest: decreased breath sounds Abdomen: normal bowel sounds, non tender, soft Extremities: non-tender Assessment/Plan Assessment/Plan: 1. History of cirrhosis. 2. History of lung cancer, on chemotherapy. 3. History of duodenectomy. 4. Hernia repair. 5. History of retinal surgery MRCP reviewed needs ERCP plan for tomorrow Aime Mello MD Jan 26, 2020 15:10
--- NOTE | 2020-01-26 15:30 | History and Physical Report ---
DATE OF ADMISSION: 01/25/2020 HISTORY OF PRESENT ILLNESS: This is a 74-year-old white male, who came to the emergency room for having generalized weakness and having abdominal pain, nausea, and vomiting. The patient was found to have acute cholecystitis and had elevated LFTs and also elevated white counts. PAST MEDICAL HISTORY: Significant for: 1. Lung CA that was diagnosed about two months ago, has been taking chemotherapy first round. 2. Inguinal hernia. 3. Conjunctivitis. 4. History of smoker. 5. Cirrhosis. 6. The patient also has a right lower pneumonia. ALLERGIES: NKA. MEDICATIONS: He is taking albuterol inhaler, aspirin, ciprofloxacin eyedrops, ferrous gluconate, Lasix, prednisone, spironolactone, Flomax, and testosterone. PHYSICAL EXAMINATION: GENERAL: This is an elderly cachectic male, who is currently in the bed, comfortable. VITAL SIGNS: Blood pressure is 140/90, pulse 93, respirations 18, temperature 98. SKIN: Good skin turgor. HEENT: NAD. CHEST: Bilateral decreased breath sounds. CARDIOVASCULAR: Regular rhythm. ABDOMEN: Soft. Positive bowel sounds. Mild diffuse tenderness on the right upper quadrant. GENITOURINARY: Deferred. LABORATORY DATA: White counts are 27,000, hemoglobin 13, hematocrit 38, platelets are 101,000. Chemistry panel, BUN 12, creatinine 1, sodium 134, potassium 3.7. LFTs are high. Bilirubin is 1.5. AST in 400 range, alkaline phosphatase 982. LDH 527. Albumin is 2.5. Troponins are negative. C-reactive protein is 3. CT of abdomen, patchy airspace opacity in the right upper and right middle lobe, maybe associated with multifocal pneumonia, moderate biliary duct dilatation. ASSESSMENT: 1. Pneumonia. 2. Acute cholecystitis. 3. History of lung CA. 4. COPD. 5. History of alcohol abuse. PLAN: We will admit on telemetry bed. Keep him NPO. Start IV fluid, IV antibiotics. Consider Surgery consult and consider also Oncology consult and pain medication. Ralf Lopez M.D. DR: HONORIO JOB#: [id number] CC:
[2020-01-26 16:00] VITALS: BP 85/57
--- NOTE | 2020-01-26 16:41 | General Progress Note ---
Subjective Constitutional: Reports: weakness HEENT: Reports: eye pain Allergies: Coded Allergies: CODEINE (Verified Allergy, Intermediate, VOMITING, 12/31/16) IBUPROFEN (Verified Adverse Reaction, Severe, RED FACE, 12/31/16) pt has cirrhosis of liver Subjective doing better sob improving Objective Last 24 Hour Vital Signs Date Time Temp Pulse Resp B/P (MAP) Pulse Ox O2 Delivery O2 Flow Rate FiO2 01/26/20 12:00 82 01/26/20 12:00 98.1 80 20 87/59 (68) 99 01/26/20 09:00 Nasal Cannula 2.0 01/26/20 08:00 97.5 96 20 88/61 (70) 95 01/26/20 08:00 97 01/26/20 04:00 98.0 88 24 85/60 (68) 98 01/26/20 04:00 87 01/26/20 00:00 97 01/26/20 00:00 98.0 98 24 86/56 (66) 97 01/25/20 21:00 108 01/25/20 21:00 Nasal Cannula 2.0 01/25/20 20:57 97.9 105 20 70/50 (57) 97 Intake and Output 01/25/20 01/26/20 19:00 07:00 Intake Total 500 ml 600 ml Output Total 550 ml 400 ml Balance -50 ml 200 ml Intake Oral 500 ml 600 ml Output Urine Total 550 ml 400 ml Laboratory Tests 01/26/20 06:30: Stool Occult Blood [Pending] 01/26/20 07:17: White Blood Count 46.5#*H, Red Blood Count 3.25L, Hemoglobin 10.6L, Hematocrit 32.7L, Mean Corpuscular Volume 101H, Mean Corpuscular Hemoglobin 32.6H, Mean Corpuscular Hemoglobin Concent 32.4, Red Cell Distribution Width 14.5, Platelet Count 204, Mean Platelet Volume 7.5, Neutrophils (%) (Auto) , Lymphocytes (%) (Auto) , Monocytes (%) (Auto) , Eosinophils (%) (Auto) , Basophils (%) (Auto) , Differential Total Cells Counted 100, Neutrophils % (Manual) 81H, Lymphocytes % (Manual) 1L, Monocytes % (Manual) 2, Eosinophils % (Manual) 0, Basophils % (Manual) 0, Metamyelocytes % 1H, Band Neutrophils 15H, Platelet Estimate Adequate, Platelet Morphology Normal, Anisocytosis 1+, Macrocytosis 1+, Sodium Level 137, Potassium Level 4.0, Chloride Level 103, Carbon Dioxide Level 25, Anion Gap 9, Blood Urea Nitrogen 23H, Creatinine 1.2, Estimat Glomerular Filtration Rate 59.0, Glucose Level 99, Calcium Level 7.6L, Iron Level 6L, Total Iron Binding Capacity 217L, Percent Iron Saturation 3L, Unsaturated Iron Eleni ng 211, Total Bilirubin 2.4H, Direct Bilirubin 2.2H, Aspartate Amino Transf (AST/SGOT) 185H, Alanine Aminotransferase (ALT/SGPT) 223H, Alkaline Phosphatase 648H, Ammonia 23, Total Protein 5.9L, Albumin 2.0L, Globulin 3.9, Albu min/Globulin Ratio 0.5L, Vitamin B12 Level > 2000H, Folate 19.4 Height (Feet): 5 Height (Inches): 10.00 Weight (Pounds): 125 General Appearance: no apparent distress EENT: PERRL/EOMI Neck: supple Cardiovascular: regular rhythm Respiratory/Chest: crackles/rales Abdomen: non tender, soft Extremities: non-tender Assessment/Plan Assessment/Plan: pneumonia sepsis lung ca failure of thrive dehydration cont iv abx gi singh in progress artficial tears David Lopez MD Jan 26, 2020 16:41
--- NOTE | 2020-01-26 18:04 | Surgery Progress Note ---
Surgery Progress Note Subjective Symptoms: improved, pain absent Additional Comments mrcp noted plan ERCP tomorrow discussed with GI Objective Last 24 Hour Vital Signs Date Time Temp Pulse Resp B/P (MAP) Pulse Ox O2 Delivery O2 Flow Rate FiO2 01/26/20 16:00 81 01/26/20 16:00 97.7 100 20 85/57 (66) 100 01/26/20 12:00 82 01/26/20 12:00 98.1 80 20 87/59 (68) 99 01/26/20 09:00 Nasal Cannula 2.0 01/26/20 08:00 97.5 96 20 88/61 (70) 95 01/26/20 08:00 97 01/26/20 04:00 98.0 88 24 85/60 (68) 98 01/26/20 04:00 87 01/26/20 00:00 97 01/26/20 00:00 98.0 98 24 86/56 (66) 97 01/25/20 21:00 108 01/25/20 21:00 Nasal Cannula 2.0 01/25/20 20:57 97.9 105 20 70/50 (57) 97 I&O Intake and Output 01/25/20 01/26/20 19:00 07:00 Intake Total 500 ml 600 ml Output Total 550 ml 400 ml Balance -50 ml 200 ml Intake Oral 500 ml 600 ml Output Urine Total 550 ml 400 ml Cardiovascular: RSR Respiratory: clear Abdomen: soft, non-tender, present bowel sounds Extremities: no edema, no tenderness, no cyanosis Laboratory Tests Test 01/26/20 06:30 01/26/20 07:17 Stool Occult Blood Pending White Blood Count 46.5 K/UL (4.8-10.8) #*H Red Blood Count 3.25 M/UL (4.70-6.10) L Hemoglobin 10.6 G/DL (14.2-18.0) L Hematocrit 32.7 % (42.0-52.0) L Mean Corpuscular Volume 101 FL (80-99) H Mean Corpuscular Hemoglobin 32.6 PG (27.0-31.0) H Mean Corpuscular Hemoglobin Concent 32.4 G/DL (32.0-36.0) Red Cell Distribution Width 14.5 % (11.6-14.8) Platelet Count 204 K/UL (150-450) Mean Platelet Volume 7.5 FL (6.5-10.1) Neutrophils (%) (Auto) % (45.0-75.0) Lymphocytes (%) (Auto) % (20.0-45.0) Monocytes (%) (Auto) % (1.0-10.0) Eosinophils (%) (Auto) % (0.0-3.0) Basophils (%) (Auto) % (0.0-2.0) Differential Total Cells Counted 100 Neutrophils % (Manual) 81 % (45-75) H Lymphocytes % (Manual) 1 % (20-45) L Monocytes % (Manual) 2 % (1-10) Eosinophils % (Manual) 0 % (0-3) Basophils % (Manual) 0 % (0-2) Metamyelocytes % 1 % (0-0) H Band Neutrophils 15 % (0-8) H Platelet Estimate Adequate Platelet Morphology Normal Anisocytosis 1+ Macrocytosis 1+ Sodium Level 137 MMOL/L (136-145) Potassium Level 4.0 MMOL/L (3.5-5.1) Chloride Level 103 MMOL/L (98-107) Carbon Dioxide Level 25 MMOL/L (21-32) Anion Gap 9 mmol/L (5-15) Blood Urea Nitrogen 23 mg/dL (7-18) H Creatinine 1.2 MG/DL (0.55-1.30) Estimat Glomerular Filtration Rate 59.0 mL/min (>60) Glucose Level 99 MG/DL (74-106) Calcium Level 7.6 MG/DL (8.5-10.1) L Iron Level 6 ug/dL (50-175) L Total Iron Binding Capacity 217 ug/dL (250-450) L Percent Iron Saturation 3 % (15-50) L Unsaturated Iron Binding 211 ug/dL (112-346) Total Bilirubin 2.4 MG/DL (0.2-1.0) H Direct Bilirubin 2.2 MG/DL (0.0-0.3) H Aspartate Amino Transf (AST/SGOT) 185 U/L (15-37) H Alanine Aminotransferase (ALT/SGPT) 223 U/L (12-78) H Alkaline Phosphatase 648 U/L (46-116) H Ammonia 23 umol/L (11-32) Total Protein 5.9 G/DL (6.4-8.2) L Albumin 2.0 G/DL (3.4-5.0) L Globulin 3.9 g/dL Albumin/Globulin Ratio 0.5 (1.0-2.7) L Vitamin B12 Level > 2000 PG/ML (193-986) H Folate 19.4 NG/ML (8.6-58.9) Plan Problems: (1) Metastatic primary lung cancer Assessment & Plan: as per oncology input appreciated (2) Right lower lobe pneumonia (3) Liver cirrhosis (4) Abdominal pain Assessment & Plan: lft's elevated possible cholecystitis pending MRCP - noted choledocholithiasis pending HIDA - ... US ordered noted npo iv fluids iv abx trend labs will follow with recs ABDOMEN: Liver: Unremarkable. No mass. Gallbladder and bile ducts: There is moderate to marked intra-and extrahepatic biliary ductal dilatation, with the common bile duct measuring up to 15 mm in diameter. Pancreas: Unremarkable. No mass. No ductal dilation. Spleen: Unremarkable. No splenomegaly. Adrenals: Unremarkable. No mass. Kidneys and ureters: Unremarkable. No solid mass. No hydronephrosis. Stomach and bowel: Postsurgical changes seen regional to the gastroesophageal junction. No evidence of bowel obstruction. No definite bowel wall thickening. PELVIS: Appendix: No findings to suggest acute appendicitis. Bladder: Moderate distention of the urinary bladder. No bladder wall thickening. No intraluminal calculi. Reproductive: Penile prosthesis in place. ABDOMEN and PELVIS: Intraperitoneal space: Unremarkable. No free air. No significant fluid collection. Bones/joints: No acute fracture. No dislocation. Soft tissues: Unremarkable. Vasculature: Unremarkable. No abdominal aortic aneurysm. Lymph nodes: Unremarkable. No enlarged lymph nodes. IMPRESSION: Patchy airspace opacities in the right upper and right middle lobes may be associated with multifocal pneumonia. Please correlate with patient's respiratory status. Moderate intra-and extrahepatic biliary ductal dilatation. Please correlate with lab work to assess for acute biliary obstruction, which may be associated with ampullary lesion or obstructing gallstone. If further imaging is warranted consider MRCP. (5) penile prosthesis implant Bryan Garcia Jan 26, 2020 18:04
[2020-01-26 20:00] VITALS: BP 91/62
[2020-01-26] MEDS: Dyna-Hex 2% Top Sol 2oz TOPIC SCH (21:06)
[2020-01-27] VITALS (11 sets, daily range): BP systolic 81–110; BP diastolic 60–73
[2020-01-27] MEDS: Vancomycin 1gm in D5W 275ml IVPB SCH (01:50)
[2020-01-27] MEDS: Piperacillin/Tazobactam 3.375 GM in NS 110 ML IVPB SCH ×3 (05:33→21:42)
[2020-01-27 06:50] LABS: HEMATOCRIT 32.9 % (42.0-52.0); HEMOGLOBIN 10.6 G/DL (14.2-18.0); MEAN CORPUSCULAR VOLUME 103 FL (80-99); PLATELET COUNT 148 K/UL (150-450); RED CELL DISTRIBUTION WIDTH 15.1 % (11.6-14.8)
[2020-01-27 07:06] LABS: WHITE BLOOD COUNT 27.1 K/UL (4.8-10.8)
[2020-01-27 07:12] LABS: ALANINE AMINOTRANSFERASE 144 U/L (12-78); ALBUMIN 1.7 G/DL (3.4-5.0); ALBUMIN/GLOBULIN RATIO 0.5 (1.0-2.7); ALKALINE PHOSPHATASE 516 U/L (46-116); ANION GAP 6 mmol/L (5-15); ASPARTATE AMINO TRANSFERASE 88 U/L (15-37); BLOOD UREA NITROGEN 14 mg/dL (7-18); CALCIUM 7.3 MG/DL (8.5-10.1); CARBON DIOXIDE 24 MMOL/L (21-32); CHLORIDE 107 MMOL/L (98-107); CREATININE 0.8 MG/DL (0.55-1.30); POTASSIUM 3.2 MMOL/L (3.5-5.1); SODIUM 137 MMOL/L (136-145)
--- NOTE | 2020-01-27 08:24 | Pre-Procedure Note/Attestation ---
Pre-Procedure Note/Attestation Complete Prior to Procedure Planned Procedure: not applicable Procedure Narrative: ercp Indications for Procedure Pre-Operative Diagnosis: cbd stone Attestation I attest that I discussed the nature of the procedure; its benefits; risks and complications; and alternatives (and the risks and benefits of such alternatives), prior to the procedure, with the patient (or the patient's legal employee relations representative). I attest that, if there was a reasonable possibility of needing a blood transfusion, the patient (or the patient's legal employee relations representative) was given the [facility] standardized written summary, pursuant to the [place] Blood Safety Act ([place] Health and Safety Code # 1645, as amended). I attest that I re-evaluated the patient just prior to the surgery and that there has been no change in the patient's H&P, except as documented below: Aime Mello MD Jan 27, 2020 08:24
--- NOTE | 2020-01-27 08:44 | Hematology/Onc Progress Note ---
Assessment/Plan Assessment/Plan Assessment and Recs # Metastatic primary lung cancer, recently started on chemotherapy at [facility] with Dr. Aggarwal, has been on 2 immunotherapies and 1 chemotherapy backbone --> is scheduled to get C2 of chemo 01/25, likely to be delayed now --> continue with outpatient f/u --> brain imaging as needed, commonly can spread to brain --> pet after 3-4 months current chemo # Leukocytosis likely related to Right lower lobe pneumonia --> abx as per id --> pulm eval as well --> imaging serially --> wbc 42-->27 # Anemia due to iron deficiency and neoplasm --> hgb 12-->11 --> to continue iron # Liver cirrhosis -> lonngstanding # Abdominal pain, lft's elevated --> per surg, gi mrcp, hida noted --> ercp pending # Dehydration --> ivf, goal euvolemia # Penile prosthesis in place. # Dvt ppx scds Appreciate consultation and shannon RN Subjective Constitutional: Denies: no symptoms, chills, fever, malaise, weakness, other HEENT: Denies: no symptoms, eye pain, blurred vision, tearing, double vision, ear pain, ear discharge, nose pain, nose congestion, throat pain, throat swelling, mouth pain, mouth swelling, other Cardiovascular: Denies: no symptoms, chest pain, edema, irregular heart rate, lightheadedness, palpitations, syncope, other Respiratory: Denies: no symptoms, cough, shortness of breath, SOB with excertion, SOB at rest, sputum, wheezing, other Gastrointestinal/Abdominal: Denies: no symptoms, abdomen distended, abdominal pain, black stools, tarry stools, blood in stool, constipated, diarrhea, difficulty swallowing, nausea, poor appetite, poor fluid intake, rectal bleeding, vomiting, other Genitourinary: Denies: no symptoms, burning, discharge, frequency, flank pain, hematuria, incontinence, pain, urgency, other Neurologic/Psychiatric: Denies: no symptoms, anxiety, depressed, emotional problems, headache, numbness, paresthesia, pre-existing deficit, seizure, tingling, tremors, weakness, other Endocrine: Denies: no symptoms, excessive sweating, flushing, intolerance to cold, intolerance to heat, increased hunger, increased thirst, increased urine, unexplained weight gain, unexplained weight loss, other Allergies: Coded Allergies: CODEINE (Verified Allergy, Intermediate, VOMITING, 12/31/16) IBUPROFEN (Verified Adverse Reaction, Severe, RED FACE, 12/31/16) pt has cirrhosis of liver Subjective 01/26 meds noted, no bleeding, to undergo ercp, have dw rn Objective Objective Current Medications Medications (Trade) Dose Ordered Sig/Kayla Route PRN Reason Start Time Stop Time Status Last Admin Dose Admin Artificial Tears (Akwa-Tears) 1 drop TID BOTH EYES 01/27/20 09:00 02/26/20 08:59 Chlorhexidine Gluconate (Jyoti-Hex 2%) 1 applic DAILY@2000 TOPIC 01/26/20 20:00 04/25/20 19:59 01/26/20 21:06 Magnesium Hydroxide (Mom) 30 ml DAILYPRN PRN ORAL Constipation 01/26/20 06:30 02/25/20 06:29 Morphine Sulfate (Morphine Sulfate) 1 mg Q4H PRN IVP For Pain 01/25/20 08:45 02/01/20 08:44 01/25/20 10:22 Piperacillin Sod/ Tazobactam Sod 3.375 gm/Sodium Chloride 110 ml @ 27.5 mls/hr EVERY 8 HOURS IVPB 01/25/20 14:00 01/30/20 13:59 01/27/20 05:33 Sodium Chloride 1,000 ml @ 100 mls/hr Q10H IV 01/25/20 08:45 02/24/20 08:44 01/27/20 01:50 Vancomycin HCl (Vanco pharmacy to dose) 1 ea DAILY PRN MISC . 01/26/20 14:15 02/25/20 08:59 Vancomycin HCl 1 gm/Dextrose 275 ml @ 183.708 mls/hr Q24H IVPB 01/27/20 02:00 02/01/20 01:59 01/27/20 01:50 Last 24 Hour Vital Signs Date Time Temp Pulse Resp B/P (MAP) Pulse Ox O2 Delivery O2 Flow Rate FiO2 01/27/20 08:00 72 18 110/73 (85) 01/27/20 04:00 98.1 65 18 110/69 (83) 97 01/27/20 04:00 65 01/27/20 00:00 97.7 63 18 97/62 (74) 97 01/27/20 00:00 71 01/26/20 21:00 Nasal Cannula 2.0 01/26/20 20:00 69 01/26/20 20:00 97.9 77 18 91/62 (72) 94 01/26/20 16:00 81 01/26/20 16:00 97.7 100 20 85/57 (66) 100 01/26/20 12:00 82 01/26/20 12:00 98.1 80 20 87/59 (68) 99 01/26/20 09:00 Nasal Cannula 2.0 01/26/20 08:00 97.5 96 20 88/61 (70) 95 01/26/20 08:00 97 01/26/20 04:00 98.0 88 24 85/60 (68) 98 01/26/20 04:00 87 01/26/20 00:00 97 01/26/20 00:00 98.0 98 24 86/56 (66) 97 01/25/20 21:00 108 01/25/20 21:00 Nasal Cannula 2.0 01/25/20 20:57 97.9 105 20 70/50 (57) 97 01/25/20 16:19 98.2 103 20 79/51 (60) 100 01/25/20 16:00 108 01/25/20 12:45 84/57 (66) 01/25/20 12:00 96.9 138 20 86/61 (69) 98 01/25/20 12:00 114 01/25/20 09:00 Nasal Cannula 2.0 Intake and Output 01/26/20 01/27/20 19:00 07:00 Intake Total 400 ml Output Total 800 ml 1100 ml Balance -400 ml -1100 ml Intake Oral 400 ml Output Urine Total 800 ml 1100 ml # Voids 4 4 # Bowel Movements 1 Labs Test 01/25/20 03:45 01/25/20 04:02 01/25/20 04:03 01/26/20 06:30 Urine Color Yellow Urine Appearance Clear Urine pH 7 (4.5-8.0) Urine Specific Anderson 1.010 (1.005-1.035) Urine Protein Negative (NEGATIVE) Urine Glucose (UA) Negative (NEGATIVE) Urine Ketones Negative (NEGATIVE) Urine Blood Negative (NEGATIVE) Urine Nitrite Negative (NEGATIVE) Urine Bilirubin Negative (NEGATIVE) Urine Urobilinogen 4 MG/DL (0.0-1.0) Urine Leukocyte Esterase Negative (NEGATIVE) Sodium Level 134 MMOL/L (136-145) Potassium Level 3.7 MMOL/L (3.5-5.1) Chloride Level 99 MMOL/L (98-107) Carbon Dioxide Level 28 MMOL/L (21-32) Anion Gap 7 mmol/L (5-15) Blood Urea Nitrogen 12 mg/dL (7-18) Creatinine 1.0 MG/DL (0.55-1.30) Estimat Glomerular Filtration Rate > 60 mL/min (>60) Glucose Level 169 MG/DL (74-106) Lactic Acid Level 1.10 mmol/L (0.4-2.0) Calcium Level 8.7 MG/DL (8.5-10.1) Magnesium Level 1.8 MG/DL (1.8-2.4) Ferritin 385 NG/ML (8-388) Total Bilirubin 1.5 MG/DL (0.2-1.0) Direct Bilirubin 1.2 MG/DL (0.0-0.3) Aspartate Amino Transf (AST/SGOT) 495 U/L (15-37) Alanine Aminotransferase (ALT/SGPT) 362 U/L (12-78) Alkaline Phosphatase 982 U/L (46-116) Lactate Dehydrogenase 527 U/L (81-234) Total Creatine Kinase 32 U/L (26-308) Troponin I 0.000 ng/mL (0.000-0.056) C-Reactive Protein, Quantitative 3.0 mg/dL (0.00-0.90) Pro-B-Type Natriuretic Peptide 247 pg/mL (0-125) Total Protein 7.2 G/DL (6.4-8.2) Albumin 2.8 G/DL (3.4-5.0) Globulin 4.4 g/dL Albumin/Globulin Ratio 0.6 (1.0-2.7) Lipase 51 U/L (73-393) White Blood Count 26.8 K/UL (4.8-10.8) Red Blood Count 3.85 M/UL (4.70-6.10) Hemoglobin 12.9 G/DL (14.2-18.0) Hematocrit 38.8 % (42.0-52.0) Mean Corpuscular Volume 101 FL (80-99) Mean Corpuscular Hemoglobin 33.6 PG (27.0-31.0) Mean Corpuscular Hemoglobin Concent 33.4 G/DL (32.0-36.0) Red Cell Distribution Width 13.5 % (11.6-14.8) Platelet Count 322 K/UL (150-450) Mean Platelet Volume 6.3 FL (6.5-10.1) Neutrophils (%) (Auto) % (45.0-75.0) Lymphocytes (%) (Auto) % (20.0-45.0) Monocytes (%) (Auto) % (1.0-10.0) Eosinophils (%) (Auto) % (0.0-3.0) Basophils (%) (Auto) % (0.0-2.0) Differential Total Cells Counted 100 Neutrophils % (Manual) 91 % (45-75) Lymphocytes % (Manual) 6 % (20-45) Monocytes % (Manual) 3 % (1-10) Eosinophils % (Manual) 0 % (0-3) Basophils % (Manual) 0 % (0-2) Band Neutrophils 0 % (0-8) Platelet Estimate Adequate Platelet Morphology Normal Prothrombin Time 11.9 SEC (9.30-11.50) Prothromb Time International Ratio 1.1 (0.9-1.1) Activated Partial Thromboplast Time 27 SEC (23-33) Venous Blood pH 7.482 Venous Blood Partial Pressure CO2 34.5 Venous Blood Partial Pressure O2 66.9 Venous Blood HCO3 25.2 Venous Blood Base Excess 2.1 Venous Blood Carboxyhemoglobin 2.1 % (0.5-1.5) Methemoglobin 0.1 Test 01/26/20 07:17 01/27/20 06:10 White Blood Count 46.5 K/UL (4.8-10.8) 27.1 K/UL (4.8-10.8) Red Blood Count 3.25 M/UL (4.70-6.10) 3.20 M/UL (4.70-6.10) Hemoglobin 10.6 G/DL (14.2-18.0) 10.6 G/DL (14.2-18.0) Hematocrit 32.7 % (42.0-52.0) 32.9 % (42.0-52.0) Mean Corpuscular Volume 101 FL (80-99) 103 FL (80-99) Mean Corpuscular Hemoglobin 32.6 PG (27.0-31.0) 33.2 PG (27.0-31.0) Mean Corpuscular Hemoglobin Concent 32.4 G/DL (32.0-36.0) 32.3 G/DL (32.0-36.0) Red Cell Distribution Width 14.5 % (11.6-14.8) 15.1 % (11.6-14.8) Platelet Count 204 K/UL (150-450) 148 K/UL (150-450) Mean Platelet Volume 7.5 FL (6.5-10.1) 7.2 FL (6.5-10.1) Neutrophils (%) (Auto) % (45.0-75.0) % (45.0-75.0) Lymphocytes (%) (Auto) % (20.0-45.0) % (20.0-45.0) Monocytes (%) (Auto) % (1.0-10.0) % (1.0-10.0) Eosinophils (%) (Auto) % (0.0-3.0) % (0.0-3.0) Basophils (%) (Auto) % (0.0-2.0) % (0.0-2.0) Differential Total Cells Counted 100 Neutrophils % (Manual) 81 % (45-75) Lymphocytes % (Manual) 1 % (20-45) Monocytes % (Manual) 2 % (1-10) Eosinophils % (Manual) 0 % (0-3) Basophils % (Manual) 0 % (0-2) Metamyelocytes % 1 % (0-0) Band Neutrophils 15 % (0-8) Platelet Estimate Adequate Platelet Morphology Normal Anisocytosis 1+ Macrocytosis 1+ Sodium Level 137 MMOL/L (136-145) 137 MMOL/L (136-145) Potassium Level 4.0 MMOL/L (3.5-5.1) 3.2 MMOL/L (3.5-5.1) Chloride Level 103 MMOL/L (98-107) 107 MMOL/L (98-107) Carbon Dioxide Level 25 MMOL/L (21-32) 24 MMOL/L (21-32) Anion Gap 9 mmol/L (5-15) 6 mmol/L (5-15) Blood Urea Nitrogen 23 mg/dL (7-18) 14 mg/dL (7-18) Creatinine 1.2 MG/DL (0.55-1.30) 0.8 MG/DL (0.55-1.30) Estimat Glomerular Filtration Rate 59.0 mL/min (>60) > 60 mL/min (>60) Glucose Level 99 MG/DL (74-106) 76 MG/DL (74-106) Calcium Level 7.6 MG/DL (8.5-10.1) 7.3 MG/DL (8.5-10.1) Iron Level 6 ug/dL (50-175) Total Iron Binding Capacity 217 ug/dL (250-450) Percent Iron Saturation 3 % (15-50) Unsaturated Iron Binding 211 ug/dL (112-346) Total Bilirubin 2.4 MG/DL (0.2-1.0) 1.0 MG/DL (0.2-1.0) Direct Bilirubin 2.2 MG/DL (0.0-0.3) Aspartate Amino Transf (AST/SGOT) 185 U/L (15-37) 88 U/L (15-37) Alanine Aminotransferase (ALT/SGPT) 223 U/L (12-78) 144 U/L (12-78) Alkaline Phosphatase 648 U/L (46-116) 516 U/L (46-116) Ammonia 23 umol/L (11-32) Total Protein 5.9 G/DL (6.4-8.2) 5.3 G/DL (6.4-8.2) Albumin 2.0 G/DL (3.4-5.0) 1.7 G/DL (3.4-5.0) Globulin 3.9 g/dL 3.6 g/dL Albumin/Globulin Ratio 0.5 (1.0-2.7) 0.5 (1.0-2.7) Vitamin B12 Level > 2000 PG/ML (193-986) Folate 19.4 NG/ML (8.6-58.9) Height (Feet): 5 Height (Inches): 5.00 Weight (Pounds): 127 Objective General appearance: alert, cooperative, no distress, appears stated age Heent: Lips, mucosa, and tongue normal. Teeth and gums normal Neck: supple, symmetrical, trachea midlin Lungs: clear to auscultation bilaterally Heart: regular rate and rhythm, S1, S2 normal, no murmur, click, rub or gallop Abdomen: soft, non-tender. Bowel sounds normal. No masses, no organomegaly Extremities: extremities normal, atraumatic, no cyanosis or edema Skin: Skin color, texture, turgor normal Neurologic: Grossly normal Artie Ivory MD Jan 27, 2020 08:44
[2020-01-27] MEDS ORDERED: Lidocaine 1% MPF 10mg/ml 5ml ONE (09:00)
[2020-01-27] MEDS ORDERED: Midazolam 2mg/2ml Inj ONE ×2 (09:00→09:48)
[2020-01-27] MEDS ORDERED: fentaNYL 100 mcg/2 mL IV ONE ×2 (09:00→09:48)
--- NOTE | 2020-01-27 09:06 | General Progress Note ---
Subjective ROS Limited/Unobtainable: No Allergies: Coded Allergies: CODEINE (Verified Allergy, Intermediate, VOMITING, 12/31/16) IBUPROFEN (Verified Adverse Reaction, Severe, RED FACE, 12/31/16) pt has cirrhosis of liver Objective Last 24 Hour Vital Signs Date Time Temp Pulse Resp B/P (MAP) Pulse Ox O2 Delivery O2 Flow Rate FiO2 01/27/20 08:00 72 18 110/73 (85) 01/27/20 04:00 98.1 65 18 110/69 (83) 97 01/27/20 04:00 65 01/27/20 00:00 97.7 63 18 97/62 (74) 97 01/27/20 00:00 71 01/26/20 21:00 Nasal Cannula 2.0 01/26/20 20:00 69 01/26/20 20:00 97.9 77 18 91/62 (72) 94 01/26/20 16:00 81 01/26/20 16:00 97.7 100 20 85/57 (66) 100 01/26/20 12:00 82 01/26/20 12:00 98.1 80 20 87/59 (68) 99 Intake and Output 01/26/20 01/27/20 19:00 07:00 Intake Total 400 ml Output Total 800 ml 1100 ml Balance -400 ml -1100 ml Intake Oral 400 ml Output Urine Total 800 ml 1100 ml # Voids 4 4 # Bowel Movements 1 Laboratory Tests 01/27/20 06:10: White Blood Count 27.1*H, Red Blood Count 3.20L, Hemoglobin 10.6L, Hematocrit 32.9L, Mean Corpuscular Volume 103H, Mean Corpuscular Hemoglobin 33.2H, Mean Corpuscular Hemoglobin Concent 32.3, Red Cell Distribution Width 15.1H, Platelet Count 148L, Mean Platelet Volume 7.2, Neutrophils (%) (Auto) , Lymphocytes (%) (Auto) , Monocytes (%) (Auto) , Eosinophils (%) (Auto) , Basophils (%) (Auto) , Neutrophils % (Manual) [Pending], Lymphocytes % (Manual) [Pending], Platelet Estimate [Pending], Platelet Morphology [Pending], Sodium Level 137, Potassium Level 3.2L, Chloride Level 107, Carbon Dioxide Level 24, Anion Gap 6, Blood Urea Nitrogen 14, Creatinine 0.8, Estimat Glomerular Filtration Rate > 60, Glucose Level 76, Calcium Level 7.3L, Total Bilirubin 1.0, Aspartate Amino Transf (AST/SGOT) 88H, Alanine Aminotransferase (ALT/SGPT) 144H, Alkaline Phosphatase 516H, Total Protein 5.3L, Albumin 1.7L, Globulin 3.6, Albumin/Globulin Ratio 0.5L Height (Feet): 5 Height (Inches): 5.00 Weight (Pounds): 127 General Appearance: no apparent distress EENT: normal ENT inspection Neck: normal alignment Cardiovascular: normal rate Respiratory/Chest: decreased breath sounds Abdomen: normal bowel sounds, non tender, soft Extremities: non-tender Assessment/Plan Assessment/Plan: 1. History of cirrhosis. 2. History of lung cancer, on chemotherapy. 3. History of duodenectomy. 4. Hernia repair. 5. History of retinal surgery MRCP reviewed needs ERCP plan for today Aime Mello MD Jan 27, 2020 09:06
[2020-01-27] MEDS ORDERED: Iothalamate Meglumine 60% 50ML INJ ONE (09:51)
[2020-01-27] MEDS ORDERED: Succinylcholine 20mg/ml 10ml vial ONE (10:32)
[2020-01-27] MEDS ORDERED: NS 500ML IVPB ONE (10:40)
--- NOTE | 2020-01-27 10:58 | Infectious Diseases Prog Note ---
Assessment/Plan Assessment/Plan antibiotics : vancomycin iv, zosyn A 1. gram positive, gram negative sepsis 2. cholangitis 3. choledocholithiasis 4. leucocytosis improving 5. aspiration pneumonia 6. lung cancer 7. cirrhosis 8. increased LFT improving P 1. continue iv vancomycin, zosyn 2. will follow up cultures 3. ERCP planned Subjective Constitutional: Denies: fever, chills Respiratory: Denies: shortness of breath, dry cough Gastrointestinal/Abdominal: Denies: nausea, vomiting, diarrhea Musculoskeletal: Denies: pain Allergies: Coded Allergies: CODEINE (Verified Allergy, Intermediate, VOMITING, 12/31/16) IBUPROFEN (Verified Adverse Reaction, Severe, RED FACE, 12/31/16) pt has cirrhosis of liver Objective Last 24 Hour Vital Signs Date Time Temp Pulse Resp B/P (MAP) Pulse Ox O2 Delivery O2 Flow Rate FiO2 01/27/20 08:00 72 18 110/73 (85) 01/27/20 04:00 98.1 65 18 110/69 (83) 97 01/27/20 04:00 65 01/27/20 00:00 97.7 63 18 97/62 (74) 97 01/27/20 00:00 71 01/26/20 21:00 Nasal Cannula 2.0 01/26/20 20:00 69 01/26/20 20:00 97.9 77 18 91/62 (72) 94 01/26/20 16:00 81 01/26/20 16:00 97.7 100 20 85/57 (66) 100 01/26/20 12:00 82 01/26/20 12:00 98.1 80 20 87/59 (68) 99 Height (Feet): 5 Height (Inches): 5.00 Weight (Pounds): 127 Respiratory/Chest: lungs clear Cardiovascular: normal rate, regular rhythm, no gallop/murmur Abdomen: soft, non tender Extremities: no edema, other - right subclavian Microbiology Date/Time Source Procedure Growth Status 01/25/20 05:00 Blood Blood Culture - Preliminary Gram Negative Samuel Gram Positive Cocci Resulted 01/25/20 04:50 Blood Blood Culture - Preliminary Gram Negative Samuel Resulted 01/25/20 04:00 Nasopharynx SARS-CoV-2 RdRp Gene Assay - Final Complete Laboratory Tests Test 01/27/20 06:10 White Blood Count 27.1 K/UL (4.8-10.8) *H Red Blood Count 3.20 M/UL (4.70-6.10) L Hemoglobin 10.6 G/DL (14.2-18.0) L Hematocrit 32.9 % (42.0-52.0) L Mean Corpuscular Volume 103 FL (80-99) H Mean Corpuscular Hemoglobin 33.2 PG (27.0-31.0) H Mean Corpuscular Hemoglobin Concent 32.3 G/DL (32.0-36.0) Red Cell Distribution Width 15.1 % (11.6-14.8) H Platelet Count 148 K/UL (150-450) L Mean Platelet Volume 7.2 FL (6.5-10.1) Neutrophils (%) (Auto) % (45.0-75.0) Lymphocytes (%) (Auto) % (20.0-45.0) Monocytes (%) (Auto) % (1.0-10.0) Eosinophils (%) (Auto) % (0.0-3.0) Basophils (%) (Auto) % (0.0-2.0) Differential Total Cells Counted 100 Neutrophils % (Manual) 86 % (45-75) H Lymphocytes % (Manual) 4 % (20-45) L Monocytes % (Manual) 4 % (1-10) Eosinophils % (Manual) 2 % (0-3) Basophils % (Manual) 0 % (0-2) Band Neutrophils 4 % (0-8) Platelet Estimate Decreased L Platelet Morphology Normal Hypochromasia 1+ Anisocytosis 1+ Macrocytosis 1+ Sodium Level 137 MMOL/L (136-145) Potassium Level 3.2 MMOL/L (3.5-5.1) L Chloride Level 107 MMOL/L (98-107) Carbon Dioxide Level 24 MMOL/L (21-32) Anion Gap 6 mmol/L (5-15) Blood Urea Nitrogen 14 mg/dL (7-18) Creatinine 0.8 MG/DL (0.55-1.30) Estimat Glomerular Filtration Rate > 60 mL/min (>60) Glucose Level 76 MG/DL (74-106) Calcium Level 7.3 MG/DL (8.5-10.1) L Total Bilirubin 1.0 MG/DL (0.2-1.0) Aspartate Amino Transf (AST/SGOT) 88 U/L (15-37) H Alanine Aminotransferase (ALT/SGPT) 144 U/L (12-78) H Alkaline Phosphatase 516 U/L (46-116) H Total Protein 5.3 G/DL (6.4-8.2) L Albumin 1.7 G/DL (3.4-5.0) L Globulin 3.6 g/dL Albumin/Globulin Ratio 0.5 (1.0-2.7) L Current Medications Medications (Trade) Dose Ordered Sig/Kayla Route PRN Reason Start Time Stop Time Status Last Admin Dose Admin Artificial Tears (Akwa-Tears) 1 drop TID BOTH EYES 01/27/20 09:00 02/26/20 08:59 01/27/20 09:37 Chlorhexidine Gluconate (Jyoti-Hex 2%) 1 applic DAILY@2000 TOPIC 01/26/20 20:00 04/25/20 19:59 01/26/20 21:06 Magnesium Hydroxide (Mom) 30 ml DAILYPRN PRN ORAL Constipation 01/26/20 06:30 02/25/20 06:29 Morphine Sulfate (Morphine Sulfate) 1 mg Q4H PRN IVP For Pain 01/25/20 08:45 02/01/20 08:44 01/25/20 10:22 Piperacillin Sod/ Tazobactam Sod 3.375 gm/Sodium Chloride 110 ml @ 27.5 mls/hr EVERY 8 HOURS IVPB 01/25/20 14:00 01/30/20 13:59 01/27/20 05:33 Potassium Chloride 100 ml @ 50 mls/hr ONCE ONCE IVPB 01/27/20 09:00 01/27/20 10:59 01/27/20 09:50 Sodium Chloride 1,000 ml @ 100 mls/hr Q10H IV 01/25/20 08:45 02/24/20 08:44 01/27/20 01:50 Vancomycin HCl (Vanco pharmacy to dose) 1 ea DAILY PRN MISC . 01/26/20 14:15 02/25/20 08:59 Vancomycin HCl 1 gm/Dextrose 275 ml @ 183.708 mls/hr Q24H IVPB 01/27/20 02:00 02/01/20 01:59 01/27/20 01:50 Georgina Kang MD Jan 27, 2020 10:58
--- NOTE | 2020-01-27 11:07 | Endoscopy Procedure Note ---
Endoscopy Procedure Note General Indication for Procedure: cholangitis Procedures Performed: EGD, ERCP Operative Findings/Diagnosis: partial gastrectomy Specimen: yes Pt Tolerated Procedure Well: Yes Estimated Blood Loss: none Anesthesia Anesthesiologist: roni Anesthesia: MAC Inserted Devices Implant(s) used?: No GI Core Measures 50 yrs or older w/o bx or poly: Not Applicable 10yrs. F/U recommended: Not Applicable Aime Mello MD Jan 27, 2020 11:07
--- NOTE | 2020-01-27 11:15 | Anethesia Preoperative Eval ---
Anesthesia Pre-op PMH/ROS General Date of Evaluation: Jan 27, 2020 Time of Evaluation: 10:35 Anesthesiologist: nusrat ASA Score: ASA 4 Mallampati Score Class I : Soft palate, uvula, fauces, pillars visible Class II: Soft palate, uvula, fauces visible Class III: Soft palate, base of uvula visible Class IV: Only hard plate visible Mallampati Classification: Class I Surgeon: yamilka Surgical Procedure: ERCP Anesthesia History: none Family History: no anesthesia problems Allergies: Coded Allergies: CODEINE (Verified Allergy, Intermediate, VOMITING, 12/31/16) IBUPROFEN (Verified Adverse Reaction, Severe, RED FACE, 12/31/16) pt has cirrhosis of liver Medications: see eMAR Patient NPO?: Yes NPO Date: Jan 27, 2020 NPO Time: 00:01 Past Medical History Cardiovascular: Reports: HTN, CAD Pulmonary: Reports: COPD, other - Lung CA; Denies: asthma, RICKY Gastrointestinal/Genitourinary: Reports: GERD; Denies: CRI, ESRD, other Neurologic/Psychiatric: Denies: dementia, CVA, depression/anxiety, TIA, other Endocrine: Denies: DM, hypothyroidism, steroids, other HEENT: Denies: cataract (L), cataract (R), glaucoma, [place] (L), [place] (R), other Hematology/Immune: Reports: anemia; Denies: DVT, bleeding disorder, other Musculoskeletal/Integumentary: Denies: OA, RA, DJD, DDD, edema, other PMH Narrative: 1.Lung CA that was diagnosed about two months ago, has been taking chemotherapy first round. 2. Inguinal hernia. 3. Conjunctivitis. 4. History of smoker. 5. Cirrhosis. 6. The patient also has a right lower pneumonia. PSxH Narrative: partial gastrectomy Anesthesia Pre-op Phys. Exam Physician Exam Last Vital Signs Date Time Temp Pulse Resp B/P (MAP) Pulse Ox O2 Delivery O2 Flow Rate FiO2 01/27/20 09:00 Nasal Cannula 2.0 01/27/20 08:00 72 18 110/73 (85) 01/27/20 04:00 98.1 97 Constitutional: NAD Neurologic: CN 2-12 intact Cardiovascular: RRR Respiratory: CTA, other - rochi Gastrointestinal: S/NT/ND Airway Exam Mallampati Classification 2 Mallampati Score: Class II MO: full Dentures: no upper, no lower Anesthesia Pre-op A/P Labs Hematology Test 01/27/20 06:10 White Blood Count 27.1 K/UL (4.8-10.8) *H Red Blood Count 3.20 M/UL (4.70-6.10) L Hemoglobin 10.6 G/DL (14.2-18.0) L Hematocrit 32.9 % (42.0-52.0) L Mean Corpuscular Volume 103 FL (80-99) H Mean Corpuscular Hemoglobin 33.2 PG (27.0-31.0) H Mean Corpuscular Hemoglobin Concent 32.3 G/DL (32.0-36.0) Red Cell Distribution Width 15.1 % (11.6-14.8) H Platelet Count 148 K/UL (150-450) L Mean Platelet Volume 7.2 FL (6.5-10.1) Neutrophils (%) (Auto) % (45.0-75.0) Lymphocytes (%) (Auto) % (20.0-45.0) Monocytes (%) (Auto) % (1.0-10.0) Eosinophils (%) (Auto) % (0.0-3.0) Basophils (%) (Auto) % (0.0-2.0) Differential Total Cells Counted 100 Neutrophils % (Manual) 86 % (45-75) H Lymphocytes % (Manual) 4 % (20-45) L Monocytes % (Manual) 4 % (1-10) Eosinophils % (Manual) 2 % (0-3) Basophils % (Manual) 0 % (0-2) Band Neutrophils 4 % (0-8) Platelet Estimate Decreased L Platelet Morphology Normal Hypochromasia 1+ Anisocytosis 1+ Macrocytosis 1+ Chemistry Test 01/27/20 06:10 Sodium Level 137 MMOL/L (136-145) Potassium Level 3.2 MMOL/L (3.5-5.1) L Chloride Level 107 MMOL/L (98-107) Carbon Dioxide Level 24 MMOL/L (21-32) Anion Gap 6 mmol/L (5-15) Blood Urea Nitrogen 14 mg/dL (7-18) Creatinine 0.8 MG/DL (0.55-1.30) Estimat Glomerular Filtration Rate > 60 mL/min (>60) Glucose Level 76 MG/DL (74-106) Calcium Level 7.3 MG/DL (8.5-10.1) L Total Bilirubin 1.0 MG/DL (0.2-1.0) Aspartate Amino Transf (AST/SGOT) 88 U/L (15-37) H Alanine Aminotransferase (ALT/SGPT) 144 U/L (12-78) H Alkaline Phosphatase 516 U/L (46-116) H Total Protein 5.3 G/DL (6.4-8.2) L Albumin 1.7 G/DL (3.4-5.0) L Globulin 3.6 g/dL Albumin/Globulin Ratio 0.5 (1.0-2.7) L Studies Pre-op Studies: EKG - sr Risk Assessment & Plan Assessment: stable today Plan: mac Status Change Before Surgery: No Pre-Antibiotics Drug: none Given Within 1 Hr of Incision: July Marie CRNA Jan 27, 2020 11:15
--- NOTE | 2020-01-27 11:16 | Immediate Post-Op Evaluation ---
Immediate Post-Op Evalulation Immediate Post-Op Evalulation Procedure: EGD/ERCP Date of Evaluation: Jan 27, 2020 Time of Evaluation: 11:16 IV Fluids: 300 Blood Pressure Systolic: 81 Blood Pressure Diastolic: 60 Pulse Rate: 87 Respiratory Rate: 14 O2 Sat by Pulse Oximetry: 99 Temperature (Fahrenheit): 98.1 Nausea: No Vomiting: No Patient Status: awake, reacts Hydration Status: adequate Drug: none July Aponte CRNA Jan 27, 2020 11:16
--- NOTE | 2020-01-27 12:00 | Procedure Note ---
DATE OF PROCEDURE: 01/27/2020 SURGEON: Aime Mello MD. PROCEDURE: Attempt ERCP and then EGD with biopsy. ANESTHESIA: Per YOUNG, July Aponte. INSTRUMENT: Olympus ERCP scope and upper scope. INDICATIONS: Cholangitis and choledocholithiasis. REASON FOR PROCEDURE: The procedure, risks, benefits, and possible consequences, including hemorrhage, aspiration, perforation and infection, and alternative treatments, were explained to the patient/legal guardian by Dr. Aime Mello and the patient/legal guardian understood and accepted these risks. PROCEDURE IN DETAIL: After informed consent was obtained and the patient was adequately sedated, Olympus ERCP scope was advanced from mouth into the stomach. We noticed that the patient had antrectomy and Micah-en-Y surgery. We tried to use and pass the ERCP scope. We actually were able to put in both afferent and efferent loops, but we could not pass it down enough to get to the ampulla. At this time, ERCP scope was removed and EGD scope was introduced. The patient had evidence of a small hiatal hernia. Distal esophageal ring. Severe bile reflux. Gastritis. Biopsy from the body was obtained. At this time, the upper endoscope was retrieved and procedure was terminated. SUMMARY OF FINDINGS: 1. Unable to do an ERCP given the patient has history of antrectomy and Micah-en-Y surgery. Recommend the patient to be transferred to [facility] for double balloon ERCP. 2. Small hiatal hernia. 3. Distal esophageal ring. 4. Bile-induced gastropathy, status post biopsy. RECOMMENDATIONS: 1. Follow biopsy results. 2. We will discuss with the primary care physician regarding transferring the patient to [facility]. Aime Mello M.D. DR: MARLENI JOB#: [id number] CC:
--- NOTE | 2020-01-27 12:09 | 48 Hour Post Anesthesia Eval ---
Post Anesthesia Evaluation Procedure: EGD/ERCP Date of Evaluation: Jan 27, 2020 Time of Evaluation: 12:09 Blood Pressure Systolic: 89 0: 60 Pulse Rate: 70 Respiratory Rate: 14 O2 Sat by Pulse Oximetry: 98 Airway: patent Nausea: No Vomiting: No Hydration Status: adequate Cardiopulmonary Status: stable Mental Status/LOC: patient returned to baseline Post-Anesthesia Complications: none Follow-up care needed: N/A July Aponte CRNA Jan 27, 2020 12:09
[2020-01-27] MEDS: Sucralfate 1gm tab ORAL SCH ×3 (13:32→21:42)
--- NOTE | 2020-01-27 14:10 | Surgery Progress Note ---
Surgery Progress Note Subjective Additional Comments Unable to do an ERCP given the patient has history of antrectomy and Micah-en-Y surgery. Recommend the patient to be transferred to [facility] for double balloon ERCP. Objective Last 24 Hour Vital Signs Date Time Temp Pulse Resp B/P (MAP) Pulse Ox O2 Delivery O2 Flow Rate FiO2 01/27/20 12:09 70 14 98 01/27/20 12:00 97.7 71 20 104/68 (80) 100 01/27/20 12:00 71 01/27/20 11:35 97.5 73 19 92/65 99 Nasal Cannula 3 01/27/20 11:25 72 16 92/61 99 Nasal Cannula 3 01/27/20 11:16 87 14 99 01/27/20 11:15 77 17 89/61 97 Nasal Cannula 3 01/27/20 11:10 83 24 89/61 96 Nasal Cannula 3 01/27/20 11:05 97.4 82 18 81/60 96 Nasal Cannula 3 01/27/20 09:00 Nasal Cannula 2.0 01/27/20 08:00 76 01/27/20 08:00 72 18 110/73 (85) 01/27/20 04:00 98.1 65 18 110/69 (83) 97 01/27/20 04:00 65 01/27/20 00:00 97.7 63 18 97/62 (74) 97 01/27/20 00:00 71 01/26/20 21:00 Nasal Cannula 2.0 01/26/20 20:00 69 01/26/20 20:00 97.9 77 18 91/62 (72) 94 01/26/20 16:00 81 01/26/20 16:00 97.7 100 20 85/57 (66) 100 I&O Intake and Output 01/26/20 01/27/20 19:00 07:00 Intake Total 400 ml Output Total 800 ml 1100 ml Balance -400 ml -1100 ml Intake Oral 400 ml Output Urine Total 800 ml 1100 ml # Voids 4 4 # Bowel Movements 1 Cardiovascular: RSR Respiratory: decreased breath sounds Abdomen: soft, non-tender, present bowel sounds Extremities: no tenderness, no cyanosis Laboratory Tests Test 01/27/20 06:10 White Blood Count 27.1 K/UL (4.8-10.8) *H Red Blood Count 3.20 M/UL (4.70-6.10) L Hemoglobin 10.6 G/DL (14.2-18.0) L Hematocrit 32.9 % (42.0-52.0) L Mean Corpuscular Volume 103 FL (80-99) H Mean Corpuscular Hemoglobin 33.2 PG (27.0-31.0) H Mean Corpuscular Hemoglobin Concent 32.3 G/DL (32.0-36.0) Red Cell Distribution Width 15.1 % (11.6-14.8) H Platelet Count 148 K/UL (150-450) L Mean Platelet Volume 7.2 FL (6.5-10.1) Neutrophils (%) (Auto) % (45.0-75.0) Lymphocytes (%) (Auto) % (20.0-45.0) Monocytes (%) (Auto) % (1.0-10.0) Eosinophils (%) (Auto) % (0.0-3.0) Basophils (%) (Auto) % (0.0-2.0) Differential Total Cells Counted 100 Neutrophils % (Manual) 86 % (45-75) H Lymphocytes % (Manual) 4 % (20-45) L Monocytes % (Manual) 4 % (1-10) Eosinophils % (Manual) 2 % (0-3) Basophils % (Manual) 0 % (0-2) Band Neutrophils 4 % (0-8) Platelet Estimate Decreased L Platelet Morphology Normal Hypochromasia 1+ Anisocytosis 1+ Macrocytosis 1+ Sodium Level 137 MMOL/L (136-145) Potassium Level 3.2 MMOL/L (3.5-5.1) L Chloride Level 107 MMOL/L (98-107) Carbon Dioxide Level 24 MMOL/L (21-32) Anion Gap 6 mmol/L (5-15) Blood Urea Nitrogen 14 mg/dL (7-18) Creatinine 0.8 MG/DL (0.55-1.30) Estimat Glomerular Filtration Rate > 60 mL/min (>60) Glucose Level 76 MG/DL (74-106) Calcium Level 7.3 MG/DL (8.5-10.1) L Total Bilirubin 1.0 MG/DL (0.2-1.0) Aspartate Amino Transf (AST/SGOT) 88 U/L (15-37) H Alanine Aminotransferase (ALT/SGPT) 144 U/L (12-78) H Alkaline Phosphatase 516 U/L (46-116) H Total Protein 5.3 G/DL (6.4-8.2) L Albumin 1.7 G/DL (3.4-5.0) L Globulin 3.6 g/dL Albumin/Globulin Ratio 0.5 (1.0-2.7) L Plan Problems: (1) Metastatic primary lung cancer Assessment & Plan: as per oncology input appreciated (2) Right lower lobe pneumonia (3) Liver cirrhosis (4) Abdominal pain Assessment & Plan: lft's elevated possible cholecystitis pending MRCP - noted choledocholithiasis pending HIDA - ... US ordered noted npo iv fluids iv abx trend labs will follow with recs Unable to do an ERCP given the patient has history of antrectomy and Micah-en-Y surgery. Recommend the patient to be transferred to [facility] for double balloon ERCP. ABDOMEN: Liver: Unremarkable. No mass. Gallbladder and bile ducts: There is moderate to marked intra-and extrahepatic biliary ductal dilatation, with the common bile duct measuring up to 15 mm in diameter. Pancreas: Unremarkable. No mass. No ductal dilation. Spleen: Unremarkable. No splenomegaly. Adrenals: Unremarkable. No mass. Kidneys and ureters: Unremarkable. No solid mass. No hydronephrosis. Stomach and bowel: Postsurgical changes seen regional to the gastroesophageal junction. No evidence of bowel obstruction. No definite bowel wall thickening. PELVIS: Appendix: No findings to suggest acute appendicitis. Bladder: Moderate distention of the urinary bladder. No bladder wall thickening. No intraluminal calculi. Reproductive: Penile prosthesis in place. ABDOMEN and PELVIS: Intraperitoneal space: Unremarkable. No free air. No significant fluid collection. Bones/joints: No acute fracture. No dislocation. Soft tissues: Unremarkable. Vasculature: Unremarkable. No abdominal aortic aneurysm. Lymph nodes: Unremarkable. No enlarged lymph nodes. IMPRESSION: Patchy airspace opacities in the right upper and right middle lobes may be associated with multifocal pneumonia. Please correlate with patient's respiratory status. Moderate intra-and extrahepatic biliary ductal dilatation. Please correlate with lab work to assess for acute biliary obstruction, which may be associated with ampullary lesion or obstructing gallstone. If further imaging is warranted consider MRCP. (5) penile prosthesis implant Bryan Garcia Jan 27, 2020 14:10
--- NOTE | 2020-01-27 15:35 | General Progress Note ---
Subjective Allergies: Coded Allergies: CODEINE (Verified Allergy, Intermediate, VOMITING, 12/31/16) IBUPROFEN (Verified Adverse Reaction, Severe, RED FACE, 12/31/16) pt has cirrhosis of liver Subjective doing better ercp not done due to prior surgery recomended to transfer to [facility] , pt has been refusing rpt cbc if better, dc home fu out pt for gi dw dr hood and charge nurse Objective Last 24 Hour Vital Signs Date Time Temp Pulse Resp B/P (MAP) Pulse Ox O2 Delivery O2 Flow Rate FiO2 01/27/20 12:09 70 14 98 01/27/20 12:00 97.7 71 20 104/68 (80) 100 01/27/20 12:00 71 01/27/20 11:35 97.5 73 19 92/65 99 Nasal Cannula 3 01/27/20 11:25 72 16 92/61 99 Nasal Cannula 3 01/27/20 11:16 87 14 99 01/27/20 11:15 77 17 89/61 97 Nasal Cannula 3 01/27/20 11:10 83 24 89/61 96 Nasal Cannula 3 01/27/20 11:05 97.4 82 18 81/60 96 Nasal Cannula 3 01/27/20 09:00 Nasal Cannula 2.0 01/27/20 08:00 76 01/27/20 08:00 72 18 110/73 (85) 01/27/20 04:00 98.1 65 18 110/69 (83) 97 01/27/20 04:00 65 01/27/20 00:00 97.7 63 18 97/62 (74) 97 01/27/20 00:00 71 01/26/20 21:00 Nasal Cannula 2.0 01/26/20 20:00 69 01/26/20 20:00 97.9 77 18 91/62 (72) 94 01/26/20 16:00 81 01/26/20 16:00 97.7 100 20 85/57 (66) 100 Intake and Output 01/26/20 01/27/20 19:00 07:00 Intake Total 400 ml Output Total 800 ml 1100 ml Balance -400 ml -1100 ml Intake Oral 400 ml Output Urine Total 800 ml 1100 ml # Voids 4 4 # Bowel Movements 1 Laboratory Tests 01/27/20 06:10: White Blood Count 27.1*H, Red Blood Count 3.20L, Hemoglobin 10.6L, Hematocrit 32 .9L, Mean Corpuscular Volume 103H, Mean Corpuscular Hemoglobin 33.2H, Mean C orpuscular Hemoglobin Concent 32.3, Red Cell Distribution Width 15.1H, Platelet Count 148L, Mean Platelet Volume 7.2, Neutrophils (%) (Auto) , Lymphocytes (%) (Auto) , Monocytes (%) (Auto) , Eosinophils (%) (Auto) , Basophils (%) (Auto) , Differential Total Cells Counted 100, Neutrophils % (Manual) 86H, Lymphocytes % (Manual) 4L, Monocytes % (Manual) 4, Eosinophils % (Manual) 2, Basophils % (Manual) 0, Band Neutrophils 4, Platelet Estimate DecreasedL, Platelet Morphology Normal, Hypochromasia 1+, Anisocytosis 1+, Macrocytosis 1+, Sodium Level 137, Potassium Level 3.2L, Chloride Level 107, Carbon Dioxide Level 24, Anion Gap 6, Blood Urea Nitrogen 14, Creatinine 0.8, Estimat Glomerular Filtration Rate > 60, Glucose Level 76, Calcium Level 7.3L, Total Bilirubin 1.0, Aspartate Amino Transf (AST/SGOT) 88H, Alanine Aminotransferase (ALT/SGPT) 144H, Alkaline Phosphatase 516H, Total Protein 5.3L, Albumin 1.7L, Globulin 3.6, Albumin/Globulin Ratio 0.5L Height (Feet): 5 Height (Inches): 5.00 Weight (Pounds): 127 Assessment/Plan Assessment/Plan: pneumonia sepsis lung ca failure of thrive dehydration cont iv abx gi singh in progress artficial tears David Lopez MD Jan 27, 2020 15:35
[2020-01-27] MEDS: Dyna-Hex 2% Top Sol 2oz TOPIC SCH (21:41)
[2020-01-28] VITALS: BP 102/68
[2020-01-28] MEDS: Vancomycin 1gm in D5W 275ml IVPB SCH (02:00)
[2020-01-28 04:00] VITALS: BP 101/65
[2020-01-28] MEDS: Piperacillin/Tazobactam 3.375 GM in NS 110 ML IVPB SCH (06:30)
[2020-01-28 07:15] LABS: HEMATOCRIT 32.4 % (42.0-52.0); HEMOGLOBIN 10.6 G/DL (14.2-18.0); MEAN CORPUSCULAR VOLUME 101 FL (80-99); PLATELET COUNT 126 K/UL (150-450); RED CELL DISTRIBUTION WIDTH 14.6 % (11.6-14.8); WHITE BLOOD COUNT 21.6 K/UL (4.8-10.8)
[2020-01-28 08:00] VITALS: BP 123/81
[2020-01-28 08:23] LABS: ALANINE AMINOTRANSFERASE 97 U/L (12-78); ALBUMIN 1.5 G/DL (3.4-5.0); ALBUMIN/GLOBULIN RATIO 0.4 (1.0-2.7); ALKALINE PHOSPHATASE 594 U/L (46-116); ANION GAP 5 mmol/L (5-15); ASPARTATE AMINO TRANSFERASE 50 U/L (15-37); BILIRUBIN,TOTAL 0.8 MG/DL (0.2-1.0); BLOOD UREA NITROGEN 12 mg/dL (7-18); CALCIUM 7.4 MG/DL (8.5-10.1); CARBON DIOXIDE 25 MMOL/L (21-32); CHLORIDE 110 MMOL/L (98-107); CREATININE 0.7 MG/DL (0.55-1.30); POTASSIUM 3.5 MMOL/L (3.5-5.1); SODIUM 140 MMOL/L (136-145)
--- NOTE | 2020-01-28 08:25 | General Progress Note ---
Subjective ROS Limited/Unobtainable: Yes Allergies: Coded Allergies: CODEINE (Verified Allergy, Intermediate, VOMITING, 12/31/16) IBUPROFEN (Verified Adverse Reaction, Severe, RED FACE, 12/31/16) pt has cirrhosis of liver Objective Last 24 Hour Vital Signs Date Time Temp Pulse Resp B/P (MAP) Pulse Ox O2 Delivery O2 Flow Rate FiO2 01/28/20 08:00 97.7 89 20 123/81 (95) 94 01/28/20 04:00 97.8 69 19 101/65 (77) 94 01/28/20 04:00 67 01/28/20 00:00 67 01/28/20 00:00 98.0 70 20 102/68 (79) 92 01/27/20 21:00 Nasal Cannula 2.0 01/27/20 20:00 83 01/27/20 20:00 98.4 68 21 100/65 (77) 99 01/27/20 16:00 74 01/27/20 16:00 97.7 77 20 109/69 (82) 98 01/27/20 12:09 70 14 98 01/27/20 12:00 97.7 71 20 104/68 (80) 100 01/27/20 12:00 71 01/27/20 11:35 97.5 73 19 92/65 99 Nasal Cannula 3 01/27/20 11:25 72 16 92/61 99 Nasal Cannula 3 01/27/20 11:16 87 14 99 01/27/20 11:15 77 17 89/61 97 Nasal Cannula 3 01/27/20 11:10 83 24 89/61 96 Nasal Cannula 3 01/27/20 11:05 97.4 82 18 81/60 96 Nasal Cannula 3 01/27/20 09:00 Nasal Cannula 2.0 Intake and Output 01/27/20 01/28/20 19:00 07:00 Intake Total 554 ml 800 ml Output Total 800 ml 1400 ml Balance -246 ml -600 ml Intake Oral 324 ml IV Total 230 ml Other 800 ml Output Urine Total 800 ml 1400 ml # Voids 5 4 Laboratory Tests 01/28/20 01:00: Random Vancomycin Level 4.8 01/28/20 06:40: White Blood Count 21.6H, Red Blood Count 3.20L, Hemoglobin 10.6L, Hematocrit 32.4L, Mean Corpuscular Volume 101H, Mean Corpuscular Hemoglobin 33.0H, Mean Corpuscular Hemoglobin Concent 32.6, Red Cell Distribution Width 14.6, Platelet Count 126L, Mean Platelet Volume 8.3, Neutrophils (%) (Auto) , Lymphocytes (%) (Auto) , Monocytes (%) (Auto) , Eosinophils (%) (Auto) , Basophils (%) (Auto) , Neutrophils % (Manual) [Pending], Lymphocytes % (Manual) [Pending], Platelet Estimate [Pending], Platelet Morphology [Pending], Sodium Level [Pending], Potassium Level [Pending], Chloride Level [Pending], Carbon Dioxide Level [Pending], Blood Urea Nitrogen [Pending], Creatinine [Pending], Estimat Glomerular Filtration Rate [Pending], Glucose Level [Pending], Calcium Level [Pending], Total Bilirubin [Pending], Aspartate Amino Transf (AST/SGOT) [Pending], Alanine Aminotransferase (ALT/SGPT) [Pending], Alkaline Phosphatase [Pending], Total Protein [Pending], Albumin [Pending], Globulin [Pending] Height (Feet): 5 Height (Inches): 5.00 Weight (Pounds): 127 General Appearance: alert EENT: normal ENT inspection Neck: supple Cardiovascular: normal rate Respiratory/Chest: decreased breath sounds Abdomen: normal bowel sounds, non tender, soft Extremities: non-tender Assessment/Plan Assessment/Plan: 1. History of cirrhosis. 2. History of lung cancer, on chemotherapy. 3. History of duodenectomy. 4. Hernia repair. 5. History of retinal surgery s/p ERCP but given partial gastrectomy was unsuccessful needs transfer to [facility] for double balloon ERCP but patient is refusing repeat labs will Aime Dias MD Jan 28, 2020 08:25
[2020-01-28] MEDS: Flonase Nasal Inhaler 16gm NASAL SCH ×2 (08:59)
[2020-01-28] MEDS: Sucralfate 1gm tab ORAL SCH ×4 (08:59→21:41)
[2020-01-28 11:41] VITALS: BP 94/56
--- NOTE | 2020-01-28 12:07 | General Progress Note ---
Subjective Allergies: Coded Allergies: CODEINE (Verified Allergy, Intermediate, VOMITING, 12/31/16) IBUPROFEN (Verified Adverse Reaction, Severe, RED FACE, 12/31/16) pt has cirrhosis of liver Subjective mild sob ercp not done due to prior surgery recomended to transfer to [facility] , pt has been refusing rpt cbc if better, dc home fu out pt for gi dw dr hood and charge nurse Objective Last 24 Hour Vital Signs Date Time Temp Pulse Resp B/P (MAP) Pulse Ox O2 Delivery O2 Flow Rate FiO2 01/28/20 11:41 99.5 98 18 94/56 (69) 95 01/28/20 09:00 Nasal Cannula 2.0 01/28/20 08:00 90 01/28/20 08:00 97.7 89 20 123/81 (95) 94 01/28/20 04:00 97.8 69 19 101/65 (77) 94 01/28/20 04:00 67 01/28/20 00:00 67 01/28/20 00:00 98.0 70 20 102/68 (79) 92 01/27/20 21:00 Nasal Cannula 2.0 01/27/20 20:00 83 01/27/20 20:00 98.4 68 21 100/65 (77) 99 01/27/20 16:00 74 01/27/20 16:00 97.7 77 20 109/69 (82) 98 01/27/20 12:09 70 14 98 Intake and Output 01/27/20 01/28/20 19:00 07:00 Intake Total 554 ml 800 ml Output Total 800 ml 1400 ml Balance -246 ml -600 ml Intake Oral 324 ml IV Total 230 ml Other 800 ml Output Urine Total 800 ml 1400 ml # Voids 5 4 Laboratory Tests 01/28/20 01:00: Random Vancomycin Level 4.8 01/28/20 06:40: White Blood Count 21.6H, Red Blood Count 3.20L, Hemoglobin 10.6L, Hematocrit 32.4L, Mean Corpuscular Volume 101H, Mean Corpuscular Hemoglobin 33.0H, Mean Corpuscular Hemoglobin Concent 32.6, Red Cell Distribution Width 14.6, Platelet Count 126L, Mean Platelet Volume 8.3, Neutrophils (%) (Auto) , Lymphocytes (%) (Auto) , Monocytes (%) (Auto) , Eosinophils (%) (Auto) , Basophils (%) (Auto) , Differential Total Cells Counted 100, Neutrophils % (Manual) 86H, Lymphocytes % (Manual) 7L, Monocytes % (Manual) 1, Eosinophils % (Manual) 1, Basophils % (Manual) 0, Band Neutrophils 5, Platelet Estimate DecreasedL, Platelet Morphology Normal, Anisocytosis 1+, Sodium Level 140, Potassium Level 3.5, Chloride Level 110H, Carbon Dioxide Level 25, Anion Gap 5, Blood Urea Nitrogen 12, Creatinine 0.7, Estimat Glomerular Filtration Rate > 60, Glucose Level 101, Calcium Level 7.4L, Total Bilirubin 0.8, Aspartate Amino Transf (AST/SGOT) 50H, Alanine Aminotransferase (ALT/SGPT) 97H, Alkaline Phosphatase 594H, Total Protein 5.0L, Albumin 1.5L, Globulin 3.5, Albumin/Globulin Ratio 0.4L Height (Feet): 5 Height (Inches): 5.00 Weight (Pounds): 127 General Appearance: alert EENT: PERRL/EOMI Neck: supple Cardiovascular: regular rhythm Respiratory/Chest: crackles/rales Abdomen: non tender, soft Assessment/Plan Assessment/Plan: leukocyotosis r/o infection , dw id dr delacruz pneumonia sepsis lung ca failure of thrive dehydration cont iv abx gi singh in progress artficial tears David Lopez MD Jan 28, 2020 12:07
[2020-01-28] MEDS ORDERED: Vancomycin 1gm in D5W 275ml IVPB SCH (14:00)
--- NOTE | 2020-01-28 14:42 | Surgery Progress Note ---
Surgery Progress Note Subjective Additional Comments labs improving no n/v transfer but refusing likely passed stone dc outpatient gi f/u Objective Last 24 Hour Vital Signs Date Time Temp Pulse Resp B/P (MAP) Pulse Ox O2 Delivery O2 Flow Rate FiO2 01/28/20 12:00 71 01/28/20 11:41 99.5 98 18 94/56 (69) 95 01/28/20 09:00 Nasal Cannula 2.0 01/28/20 08:00 90 01/28/20 08:00 97.7 89 20 123/81 (95) 94 01/28/20 04:00 97.8 69 19 101/65 (77) 94 01/28/20 04:00 67 01/28/20 00:00 67 01/28/20 00:00 98.0 70 20 102/68 (79) 92 01/27/20 21:00 Nasal Cannula 2.0 01/27/20 20:00 83 01/27/20 20:00 98.4 68 21 100/65 (77) 99 01/27/20 16:00 74 01/27/20 16:00 97.7 77 20 109/69 (82) 98 I&O Intake and Output 01/27/20 01/28/20 19:00 07:00 Intake Total 554 ml 800 ml Output Total 800 ml 1400 ml Balance -246 ml -600 ml Intake Oral 324 ml IV Total 230 ml Other 800 ml Output Urine Total 800 ml 1400 ml # Voids 5 4 Cardiovascular: RSR Respiratory: clear Abdomen: soft, flat, non-tender, present bowel sounds Extremities: no edema, no tenderness, no cyanosis Laboratory Tests Test 01/28/20 01:00 01/28/20 06:40 Random Vancomycin Level 4.8 ug/mL White Blood Count 21.6 K/UL (4.8-10.8) H Red Blood Count 3.20 M/UL (4.70-6.10) L Hemoglobin 10.6 G/DL (14.2-18.0) L Hematocrit 32.4 % (42.0-52.0) L Mean Corpuscular Volume 101 FL (80-99) H Mean Corpuscular Hemoglobin 33.0 PG (27.0-31.0) H Mean Corpuscular Hemoglobin Concent 32.6 G/DL (32.0-36.0) Red Cell Distribution Width 14.6 % (11.6-14.8) Platelet Count 126 K/UL (150-450) L Mean Platelet Volume 8.3 FL (6.5-10.1) Neutrophils (%) (Auto) % (45.0-75.0) Lymphocytes (%) (Auto) % (20.0-45.0) Monocytes (%) (Auto) % (1.0-10.0) Eosinophils (%) (Auto) % (0.0-3.0) Basophils (%) (Auto) % (0.0-2.0) Differential Total Cells Counted 100 Neutrophils % (Manual) 86 % (45-75) H Lymphocytes % (Manual) 7 % (20-45) L Monocytes % (Manual) 1 % (1-10) Eosinophils % (Manual) 1 % (0-3) Basophils % (Manual) 0 % (0-2) Band Neutrophils 5 % (0-8) Platelet Estimate Decreased L Platelet Morphology Normal Anisocytosis 1+ Sodium Level 140 MMOL/L (136-145) Potassium Level 3.5 MMOL/L (3.5-5.1) Chloride Level 110 MMOL/L (98-107) H Carbon Dioxide Level 25 MMOL/L (21-32) Anion Gap 5 mmol/L (5-15) Blood Urea Nitrogen 12 mg/dL (7-18) Creatinine 0.7 MG/DL (0.55-1.30) Estimat Glomerular Filtration Rate > 60 mL/min (>60) Glucose Level 101 MG/DL (74-106) Calcium Level 7.4 MG/DL (8.5-10.1) L Total Bilirubin 0.8 MG/DL (0.2-1.0) Aspartate Amino Transf (AST/SGOT) 50 U/L (15-37) H Alanine Aminotransferase (ALT/SGPT) 97 U/L (12-78) H Alkaline Phosphatase 594 U/L (46-116) H Total Protein 5.0 G/DL (6.4-8.2) L Albumin 1.5 G/DL (3.4-5.0) L Globulin 3.5 g/dL Albumin/Globulin Ratio 0.4 (1.0-2.7) L Plan Problems: (1) Metastatic primary lung cancer Assessment & Plan: as per oncology input appreciated (2) Right lower lobe pneumonia (3) Liver cirrhosis (4) Abdominal pain Assessment & Plan: lft's elevated possible cholecystitis pending MRCP - noted choledocholithiasis pending HIDA - ... US ordered noted npo iv fluids iv abx trend labs will follow with recs Unable to do an ERCP given the patient has history of antrectomy and Micah-en-Y surgery. Recommend the patient to be transferred to [facility] for double balloon ERCP. transfer but refusing likely passed stone dc outpatient gi f/u ABDOMEN: Liver: Unremarkable. No mass. Gallbladder and bile ducts: There is moderate to marked intra-and extrahepatic biliary ductal dilatation, with the common bile duct measuring up to 15 mm in diameter. Pancreas: Unremarkable. No mass. No ductal dilation. Spleen: Unremarkable. No splenomegaly. Adrenals: Unremarkable. No mass. Kidneys and ureters: Unremarkable. No solid mass. No hydronephrosis. Stomach and bowel: Postsurgical changes seen regional to the gastroesophageal junction. No evidence of bowel obstruction. No definite bowel wall thickening. PELVIS: Appendix: No findings to suggest acute appendicitis. Bladder: Moderate distention of the urinary bladder. No bladder wall thickening. No intraluminal calculi. Reproductive: Penile prosthesis in place. ABDOMEN and PELVIS: Intraperitoneal space: Unremarkable. No free air. No significant fluid collection. Bones/joints: No acute fracture. No dislocation. Soft tissues: Unremarkable. Vasculature: Unremarkable. No abdominal aortic aneurysm. Lymph nodes: Unremarkable. No enlarged lymph nodes. IMPRESSION: Patchy airspace opacities in the right upper and right middle lobes may be associated with multifocal pneumonia. Please correlate with patient's respiratory status. Moderate intra-and extrahepatic biliary ductal dilatation. Please correlate with lab work to assess for acute biliary obstruction, which may be associated with ampullary lesion or obstructing gallstone. If further imaging is warranted consider MRCP. (5) penile prosthesis implant Bryan Garcia Jan 28, 2020 14:42
[2020-01-28] MEDS ORDERED: Piperacillin/Tazobactam 3.375 GM in NS 110 ML IVPB SCH (15:00)
[2020-01-28 16:00] VITALS: BP 137/77
--- NOTE | 2020-01-28 16:27 | Infectious Diseases Prog Note ---
Assessment/Plan Assessment/Plan A: 1. Possible aspiration pneumonia. 2. Choledocholithiasis 3. History of cirrhosis. 4. Metastatic lung cancer. 5. Leukocytosis worsening 6. Anemia 7. E coli ESBL & Strep Bovis sepsis PLAN: 1. Discontinue Zosyn & Vancomycin 2. Start on Meropenem 3. ERCP was not successful Subjective ROS Limited/Unobtainable: No Constitutional: Reports: no symptoms Respiratory: Reports: no symptoms Gastrointestinal/Abdominal: Reports: diarrhea Genitourinary: Reports: no symptoms Allergies: Coded Allergies: CODEINE (Verified Allergy, Intermediate, VOMITING, 12/31/16) IBUPROFEN (Verified Adverse Reaction, Severe, RED FACE, 12/31/16) pt has cirrhosis of liver Objective Last 24 Hour Vital Signs Date Time Temp Pulse Resp B/P (MAP) Pulse Ox O2 Delivery O2 Flow Rate FiO2 01/28/20 16:00 98.6 78 20 137/77 (97) 96 01/28/20 12:00 71 01/28/20 11:41 99.5 98 18 94/56 (69) 95 01/28/20 09:00 Nasal Cannula 2.0 01/28/20 08:00 90 01/28/20 08:00 97.7 89 20 123/81 (95) 94 01/28/20 04:00 97.8 69 19 101/65 (77) 94 01/28/20 04:00 67 01/28/20 00:00 67 01/28/20 00:00 98.0 70 20 102/68 (79) 92 01/27/20 21:00 Nasal Cannula 2.0 01/27/20 20:00 83 01/27/20 20:00 98.4 68 21 100/65 (77) 99 Height (Feet): 5 Height (Inches): 5.00 Weight (Pounds): 127 General Appearance: no acute distress HEENT: mucous membranes moist Respiratory/Chest: lungs clear, other - Oxygen by nasacnnula Cardiovascular: normal rate Abdomen: soft, non tender Extremities: no edema Neurologic/Psychiatric: alert, responsive Musculoskeletal: atrophy Microbiology Date/Time Source Procedure Growth Status 01/26/20 06:30 Sputum Gram Stain - Final Complete 01/26/20 06:30 Sputum Culture - Final Jennifer Albicans Usual Upper Respiratory Lyn Complete Laboratory Tests Test 01/28/20 01:00 01/28/20 06:40 Random Vancomycin Level 4.8 ug/mL White Blood Count 21.6 K/UL (4.8-10.8) H Red Blood Count 3.20 M/UL (4.70-6.10) L Hemoglobin 10.6 G/DL (14.2-18.0) L Hematocrit 32.4 % (42.0-52.0) L Mean Corpuscular Volume 101 FL (80-99) H Mean Corpuscular Hemoglobin 33.0 PG (27.0-31.0) H Mean Corpuscular Hemoglobin Concent 32.6 G/DL (32.0-36.0) Red Cell Distribution Width 14.6 % (11.6-14.8) Platelet Count 126 K/UL (150-450) L Mean Platelet Volume 8.3 FL (6.5-10.1) Neutrophils (%) (Auto) % (45.0-75.0) Lymphocytes (%) (Auto) % (20.0-45.0) Monocytes (%) (Auto) % (1.0-10.0) Eosinophils (%) (Auto) % (0.0-3.0) Basophils (%) (Auto) % (0.0-2.0) Differential Total Cells Counted 100 Neutrophils % (Manual) 86 % (45-75) H Lymphocytes % (Manual) 7 % (20-45) L Monocytes % (Manual) 1 % (1-10) Eosinophils % (Manual) 1 % (0-3) Basophils % (Manual) 0 % (0-2) Band Neutrophils 5 % (0-8) Platelet Estimate Decreased L Platelet Morphology Normal Anisocytosis 1+ Sodium Level 140 MMOL/L (136-145) Potassium Level 3.5 MMOL/L (3.5-5.1) Chloride Level 110 MMOL/L (98-107) H Carbon Dioxide Level 25 MMOL/L (21-32) Anion Gap 5 mmol/L (5-15) Blood Urea Nitrogen 12 mg/dL (7-18) Creatinine 0.7 MG/DL (0.55-1.30) Estimat Glomerular Filtration Rate > 60 mL/min (>60) Glucose Level 101 MG/DL (74-106) Calcium Level 7.4 MG/DL (8.5-10.1) L Total Bilirubin 0.8 MG/DL (0.2-1.0) Aspartate Amino Transf (AST/SGOT) 50 U/L (15-37) H Alanine Aminotransferase (ALT/SGPT) 97 U/L (12-78) H Alkaline Phosphatase 594 U/L (46-116) H Total Protein 5.0 G/DL (6.4-8.2) L Albumin 1.5 G/DL (3.4-5.0) L Globulin 3.5 g/dL Albumin/Globulin Ratio 0.4 (1.0-2.7) L Current Medications Medications (Trade) Dose Ordered Sig/Kayla Route PRN Reason Start Time Stop Time Status Last Admin Dose Admin Artificial Tears (Akwa-Tears) 1 drop TID BOTH EYES 01/27/20 09:00 02/26/20 08:59 01/28/20 12:24 Chlorhexidine Gluconate (Jyoti-Hex 2%) 1 applic DAILY@2000 TOPIC 01/26/20 20:00 04/25/20 19:59 01/27/20 21:41 Fluticasone Propionate (Flonase) 1 spray DAILY NASAL 01/28/20 00:00 02/27/20 00:00 01/28/20 08:59 Magnesium Hydroxide (Mom) 30 ml DAILYPRN PRN ORAL Constipation 01/26/20 06:30 02/25/20 06:29 Morphine Sulfate (Morphine Sulfate) 1 mg Q4H PRN IVP For Pain 01/25/20 08:45 02/01/20 08:44 01/25/20 10:22 Pantoprazole (Protonix) 40 mg DAILY ORAL 01/28/20 09:00 02/27/20 08:59 01/28/20 08:59 Piperacillin Sod/ Tazobactam Sod 3.375 gm/Sodium Chloride 110 ml @ 27.5 mls/hr Q8H IVPB 01/28/20 15:00 02/04/20 14:59 01/28/20 15:33 Sodium Chloride 1,000 ml @ 100 mls/hr Q10H IV 01/25/20 08:45 02/24/20 08:44 01/28/20 06:45 Sucralfate (Carafate) 1 gm FOUR TIMES A DAY ORAL 01/27/20 13:00 04/26/20 12:59 01/28/20 12:24 Vancomycin HCl (Vanco pharmacy to dose) 1 ea DAILY PRN MISC . 01/26/20 14:15 02/25/20 08:59 Vancomycin HCl 1 gm/Dextrose 275 ml @ 183.708 mls/hr Q12HR@0200,1400 IVPB 01/28/20 14:00 02/02/20 13:59 01/28/20 13:50 Aureliano Diaz MD Jan 28, 2020 16:26
[2020-01-28] MEDS: Albuterol/Ipratropium 3ml neb HHN PRN (19:32)
[2020-01-28 20:00] VITALS: BP 100/55
[2020-01-28] MEDS: Dyna-Hex 2% Top Sol 2oz TOPIC SCH (21:40)
[2020-01-28] MEDS: Meropenem 1 GM in NS 55 ML IVPB SCH (21:40)
[2020-01-29] VITALS: BP 135/50
[2020-01-29 04:00] VITALS: BP 105/66
[2020-01-29] MEDS: Meropenem 1 GM in NS 55 ML IVPB SCH ×3 (06:09→21:37)
--- NOTE | 2020-01-29 06:53 | Hematology/Onc Progress Note ---
Assessment/Plan Assessment/Plan Assessment and Recs # Metastatic primary lung cancer, recently started on chemotherapy at [facility] with Dr. Aggarwal, has been on 2 immunotherapies and 1 chemotherapy backbone --> is scheduled to get C2 of chemo 01/25, likely to be delayed now --> continue with outpatient f/u --> brain imaging as needed, commonly can spread to brain --> pet after 3-4 months current chemo # Leukocytosis likely related to Right lower lobe pneumonia --> abx as per id --> pulm eval as well --> imaging serially --> wbc 42-->27->21 --> s/p ERCP but given partial gastrectomy was unsuccessful needs transfer to [facility] for double balloon ERCP but patient is refusing repeat labs # Anemia due to iron deficiency and neoplasm --> hgb 12-->11->9 --> to continue iron # Liver cirrhosis -> lonngstanding # Abdominal pain, lft's elevated --> per surg, gi mrcp, hida noted--> as above refusing workup --> ercp unsuccessful # Dehydration --> ivf, goal euvolemia # Penile prosthesis in place. # Dvt ppx scds Appreciate consultation and shannon RN Subjective HEENT: Denies: no symptoms, eye pain, blurred vision, tearing, double vision, ear pain, ear discharge, nose pain, nose congestion, throat pain, throat swell ing, mouth pain, mouth swelling, other Cardiovascular: Denies: no symptoms, chest pain, edema, irregular heart rate, lightheadedness, palpitations, syncope, other Respiratory: Denies: no symptoms, cough, shortness of breath, SOB with excertion, SOB at rest, sputum, wheezing, other Gastrointestinal/Abdominal: Denies: no symptoms, abdomen distended, abdominal pain, black stools, tarry stools, blood in stool, constipated, diarrhea, difficulty swallowing, nausea, poor appetite, poor fluid intake, rectal bleeding, vomiting, other Genitourinary: Denies: no symptoms, burning, discharge, frequency, flank pain, hematuria, incontinence, pain, urgency, other Neurologic/Psychiatric: Denies: no symptoms, anxiety, depressed, emotional problems, headache, numbness, paresthesia, pre-existing deficit, seizure, tingling, tremors, weakness, other Endocrine: Denies: no symptoms, excessive sweating, flushing, intolerance to cold, intolerance to heat, increased hunger, increased thirst, increased urine, unexplained weight gain, unexplained weight loss, other Hematologic/Lymphatic: Denies: no symptoms, anemia, easy bleeding, easy b ruising, adenopathy, other Allergies: Coded Allergies: CODEINE (Verified Allergy, Intermediate, VOMITING, 12/31/16) IBUPROFEN (Verified Adverse Reaction, Severe, RED FACE, 12/31/16) pt has cirrhosis of liver Subjective 01/26 meds noted, no bleeding, to undergo ercp, have dw rn 01/28 labs reviewed meds noted, wbc trending better, to undergo labs Objective Objective Current Medications Medications (Trade) Dose Ordered Sig/Kayla Route PRN Reason Start Time Stop Time Status Last Admin Dose Admin Albuterol/ Ipratropium (Albuterol/ Ipratropium) 3 ml Q6HRT PRN HHN Shortness of breath 01/28/20 18:45 02/02/20 18:44 01/28/20 19:32 Artificial Tears (Akwa-Tears) 1 drop TID BOTH EYES 01/27/20 09:00 02/26/20 08:59 01/28/20 17:02 Chlorhexidine Gluconate (Jyoti-Hex 2%) 1 applic DAILY@2000 TOPIC 01/26/20 20:00 04/25/20 19:59 01/28/20 21:40 Fluticasone Propionate (Flonase) 1 spray DAILY NASAL 01/28/20 00:00 02/27/20 00:00 01/28/20 08:59 Magnesium Hydroxide (Mom) 30 ml DAILYPRN PRN ORAL Constipation 01/26/20 06:30 02/25/20 06:29 Meropenem 1 gm/ Sodium Chloride 55 ml @ 110 mls/hr Q8HR IVPB 01/28/20 22:00 02/02/20 21:59 01/29/20 06:09 Morphine Sulfate (Morphine Sulfate) 1 mg Q4H PRN IVP For Pain 01/25/20 08:45 02/01/20 08:44 01/25/20 10:22 Pantoprazole (Protonix) 40 mg DAILY ORAL 01/28/20 09:00 02/27/20 08:59 01/28/20 08:59 Sucralfate (Carafate) 1 gm FOUR TIMES A DAY ORAL 01/27/20 13:00 04/26/20 12:59 01/28/20 21:41 Last 24 Hour Vital Signs Date Time Temp Pulse Resp B/P (MAP) Pulse Ox O2 Delivery O2 Flow Rate FiO2 01/29/20 04:00 99.9 68 20 105/66 (79) 97 01/29/20 04:00 70 01/29/20 00:00 99.9 78 22 135/50 (78) 98 01/28/20 21:00 Nasal Cannula 4.0 01/28/20 20:00 97.2 107 22 100/55 (70) 98 01/28/20 20:00 81 01/28/20 19:42 77 20 97 Nasal Cannula 2.0 28 01/28/20 19:32 79 20 97 Nasal Cannula 2.0 28 01/28/20 19:32 79 20 97 Nasal Cannula 2.0 28 01/28/20 19:32 97 Nasal Cannula 2.0 28 01/28/20 16:00 70 01/28/20 16:00 98.6 78 20 137/77 (97) 96 01/28/20 12:00 71 01/28/20 11:41 99.5 98 18 94/56 (69) 95 01/28/20 09:00 Nasal Cannula 2.0 01/28/20 08:00 90 01/28/20 08:00 97.7 89 20 123/81 (95) 94 01/28/20 04:00 97.8 69 19 101/65 (77) 94 01/28/20 04:00 67 01/28/20 00:00 67 01/28/20 00:00 98.0 70 20 102/68 (79) 92 01/27/20 21:00 Nasal Cannula 2.0 01/27/20 20:00 83 01/27/20 20:00 98.4 68 21 100/65 (77) 99 01/27/20 16:00 74 01/27/20 16:00 97.7 77 20 109/69 (82) 98 01/27/20 12:09 70 14 98 01/27/20 12:00 97.7 71 20 104/68 (80) 100 01/27/20 12:00 71 01/27/20 11:35 97.5 73 19 92/65 99 Nasal Cannula 3 01/27/20 11:25 72 16 92/61 99 Nasal Cannula 3 01/27/20 11:16 87 14 99 01/27/20 11:15 77 17 89/61 97 Nasal Cannula 3 01/27/20 11:10 83 24 89/61 96 Nasal Cannula 3 01/27/20 11:05 97.4 82 18 81/60 96 Nasal Cannula 3 01/27/20 09:00 Nasal Cannula 2.0 01/27/20 08:00 76 01/27/20 08:00 72 18 110/73 (85) Intake and Output 01/28/20 01/29/20 19:00 07:00 Intake Total 600 ml 300 ml Output Total 800 ml 450 ml Balance -200 ml -150 ml Intake Oral 600 ml 300 ml Output Urine Total 800 ml 450 ml # Voids 4 # Bowel Movements 1 1 Labs Test 01/26/20 07:17 01/27/20 06:10 01/28/20 01:00 01/28/20 06:40 White Blood Count 46.5 K/UL (4.8-10.8) 27.1 K/UL (4.8-10.8) 21.6 K/UL (4.8-10.8) Red Blood Count 3.25 M/UL (4.70-6.10) 3.20 M/UL (4.70-6.10) 3.20 M/UL (4.70-6.10) Hemoglobin 10.6 G/DL (14.2-18.0) 10.6 G/DL (14.2-18.0) 10.6 G/DL (14.2-18.0) Hematocrit 32.7 % (42.0-52.0) 32.9 % (42.0-52.0) 32.4 % (42.0-52.0) Mean Corpuscular Volume 101 FL (80-99) 103 FL (80-99) 101 FL (80-99) Mean Corpuscular Hemoglobin 32.6 PG (27.0-31.0) 33.2 PG (27.0-31.0) 33.0 PG (27.0-31.0) Mean Corpuscular Hemoglobin Concent 32.4 G/DL (32.0-36.0) 32.3 G/DL (32.0-36.0) 32.6 G/DL (32.0-36.0) Red Cell Distribution Width 14.5 % (11.6-14.8) 15.1 % (11.6-14.8) 14.6 % (11.6-14.8) Platelet Count 204 K/UL (150-450) 148 K/UL (150-450) 126 K/UL (150-450) Mean Platelet Volume 7.5 FL (6.5-10.1) 7.2 FL (6.5-10.1) 8.3 FL (6.5-10.1) Neutrophils (%) (Auto) % (45.0-75.0) % (45.0-75.0) % (45.0-75.0) Lymphocytes (%) (Auto) % (20.0-45.0) % (20.0-45.0) % (20.0-45.0) Monocytes (%) (Auto) % (1.0-10.0) % (1.0-10.0) % (1.0-10.0) Eosinophils (%) (Auto) % (0.0-3.0) % (0.0-3.0) % (0.0-3.0) Basophils (%) (Auto) % (0.0-2.0) % (0.0-2.0) % (0.0-2.0) Differential Total Cells Counted 100 100 100 Neutrophils % (Manual) 81 % (45-75) 86 % (45-75) 86 % (45-75) Lymphocytes % (Manual) 1 % (20-45) 4 % (20-45) 7 % (20-45) Monocytes % (Manual) 2 % (1-10) 4 % (1-10) 1 % (1-10) Eosinophils % (Manual) 0 % (0-3) 2 % (0-3) 1 % (0-3) Basophils % (Manual) 0 % (0-2) 0 % (0-2) 0 % (0-2) Metamyelocytes % 1 % (0-0) Band Neutrophils 15 % (0-8) 4 % (0-8) 5 % (0-8) Platelet Estimate Adequate Decreased Decreased Platelet Morphology Normal Normal Normal Anisocytosis 1+ 1+ 1+ Macrocytosis 1+ 1+ Sodium Level 137 MMOL/L (136-145) 137 MMOL/L (136-145) 140 MMOL/L (136-145) Potassium Level 4.0 MMOL/L (3.5-5.1) 3.2 MMOL/L (3.5-5.1) 3.5 MMOL/L (3.5-5.1) Chloride Level 103 MMOL/L (98-107) 107 MMOL/L (98-107) 110 MMOL/L (98-107) Carbon Dioxide Level 25 MMOL/L (21-32) 24 MMOL/L (21-32) 25 MMOL/L (21-32) Anion Gap 9 mmol/L (5-15) 6 mmol/L (5-15) 5 mmol/L (5-15) Blood Urea Nitrogen 23 mg/dL (7-18) 14 mg/dL (7-18) 12 mg/dL (7-18) Creatinine 1.2 MG/DL (0.55-1.30) 0.8 MG/DL (0.55-1.30) 0.7 MG/DL (0.55-1.30) Estimat Glomerular Filtration Rate 59.0 mL/min (>60) > 60 mL/min (>60) > 60 mL/min (>60) Glucose Level 99 MG/DL (74-106) 76 MG/DL (74-106) 101 MG/DL (74-106) Calcium Level 7.6 MG/DL (8.5-10.1) 7.3 MG/DL (8.5-10.1) 7.4 MG/DL (8.5-10.1) Iron Level 6 ug/dL (50-175) Total Iron Binding Capacity 217 ug/dL (250-450) Percent Iron Saturation 3 % (15-50) Unsaturated Iron Binding 211 ug/dL (112-346) Total Bilirubin 2.4 MG/DL (0.2-1.0) 1.0 MG/DL (0.2-1.0) 0.8 MG/DL (0.2-1.0) Direct Bilirubin 2.2 MG/DL (0.0-0.3) Aspartate Amino Transf (AST/SGOT) 185 U/L (15-37) 88 U/L (15-37) 50 U/L (15-37) Alanine Aminotransferase (ALT/SGPT) 223 U/L (12-78) 144 U/L (12-78) 97 U/L (12-78) Alkaline Phosphatase 648 U/L (46-116) 516 U/L (46-116) 594 U/L (46-116) Ammonia 23 umol/L (11-32) Total Protein 5.9 G/DL (6.4-8.2) 5.3 G/DL (6.4-8.2) 5.0 G/DL (6.4-8.2) Albumin 2.0 G/DL (3.4-5.0) 1.7 G/DL (3.4-5.0) 1.5 G/DL (3.4-5.0) Globulin 3.9 g/dL 3.6 g/dL 3.5 g/dL Albumin/Globulin Ratio 0.5 (1.0-2.7) 0.5 (1.0-2.7) 0.4 (1.0-2.7) Vitamin B12 Level > 2000 PG/ML (193-986) Folate 19.4 NG/ML (8.6-58.9) Hypochromasia 1+ Random Vancomycin Level 4.8 ug/mL Height (Feet): 5 Height (Inches): 5.00 Weight (Pounds): 127 Objective General appearance: alert, cooperative, no distress, appears stated age Heent: Lips, mucosa, and tongue normal. Teeth and gums normal Neck: supple, symmetrical, trachea midlin Lungs: clear to auscultation bilaterally Heart: regular rate and rhythm, S1, S2 normal, no murmur, click, rub or gallop Abdomen: soft, non-tender. Bowel sounds normal. No masses, no organomegaly Extremities: extremities normal, atraumatic, no cyanosis or edema Skin: Skin color, texture, turgor normal Neurologic: Grossly normal Artie Ivory MD Jan 29, 2020 06:53
--- NOTE | 2020-01-29 07:21 | General Progress Note ---
Subjective ROS Limited/Unobtainable: Yes Allergies: Coded Allergies: CODEINE (Verified Allergy, Intermediate, VOMITING, 12/31/16) IBUPROFEN (Verified Adverse Reaction, Severe, RED FACE, 12/31/16) pt has cirrhosis of liver Objective Last 24 Hour Vital Signs Date Time Temp Pulse Resp B/P (MAP) Pulse Ox O2 Delivery O2 Flow Rate FiO2 01/29/20 04:00 99.9 68 20 105/66 (79) 97 01/29/20 04:00 70 01/29/20 00:00 99.9 78 22 135/50 (78) 98 01/28/20 21:00 Nasal Cannula 4.0 01/28/20 20:00 97.2 107 22 100/55 (70) 98 01/28/20 20:00 81 01/28/20 19:42 77 20 97 Nasal Cannula 2.0 28 01/28/20 19:32 79 20 97 Nasal Cannula 2.0 28 01/28/20 19:32 79 20 97 Nasal Cannula 2.0 28 01/28/20 19:32 97 Nasal Cannula 2.0 28 01/28/20 16:00 70 01/28/20 16:00 98.6 78 20 137/77 (97) 96 01/28/20 12:00 71 01/28/20 11:41 99.5 98 18 94/56 (69) 95 01/28/20 09:00 Nasal Cannula 2.0 01/28/20 08:00 90 01/28/20 08:00 97.7 89 20 123/81 (95) 94 Intake and Output 01/28/20 01/29/20 19:00 07:00 Intake Total 600 ml 300 ml Output Total 800 ml 450 ml Balance -200 ml -150 ml Intake Oral 600 ml 300 ml Output Urine Total 800 ml 450 ml # Voids 4 # Bowel Movements 1 1 Height (Feet): 5 Height (Inches): 5.00 Weight (Pounds): 127 General Appearance: no apparent distress EENT: normal ENT inspection Neck: supple Cardiovascular: normal rate Respiratory/Chest: decreased breath sounds Abdomen: normal bowel sounds, non tender, soft Extremities: non-tender Assessment/Plan Assessment/Plan: 1. History of cirrhosis. 2. History of lung cancer, on chemotherapy. 3. History of duodenectomy. 4. Hernia repair. 5. History of retinal surgery s/p ERCP but given partial gastrectomy was unsuccessful needs transfer to [facility] for double balloon ERCP but patient is refusing repeat labs improving LFTS abx will fu Aime Mello MD Jan 29, 2020 07:21
[2020-01-29 08:00] VITALS: BP 130/81
[2020-01-29 08:36] LABS: HEMATOCRIT 36.1 % (42.0-52.0); HEMOGLOBIN 11.7 G/DL (14.2-18.0); MEAN CORPUSCULAR VOLUME 102 FL (80-99); PLATELET COUNT 115 K/UL (150-450); RED BLOOD COUNT 3.55 M/UL (4.70-6.10); RED CELL DISTRIBUTION WIDTH 14.4 % (11.6-14.8); WHITE BLOOD COUNT 18.5 K/UL (4.8-10.8)
--- NOTE | 2020-01-29 08:45 | Diagnostic Imaging Report ---
EXAM: XR Chest, 1 View CLINICAL HISTORY: SOB TECHNIQUE: Frontal view of the chest. COMPARISON: Chest radiograph January 25, 2020 FINDINGS/IMPRESSION: Right-sided Port-A-Cath terminates in the right atrium. Extensive airspace consolidation throughout the right mid and lower lung field consistent with infiltrate. Small right pleural effusion (loculated on CT scan from January 25, 2020). No pneumothorax. Cardiomegaly. Calcified aorta. Numerous surgical clips project over the epigastric region, correlate with surgical history.
[2020-01-29 08:54] LABS: ALANINE AMINOTRANSFERASE 76 U/L (12-78); ALBUMIN 1.6 G/DL (3.4-5.0); ALBUMIN/GLOBULIN RATIO 0.4 (1.0-2.7); ALKALINE PHOSPHATASE 646 U/L (46-116); ANION GAP 8 mmol/L (5-15); ASPARTATE AMINO TRANSFERASE 41 U/L (15-37); BILIRUBIN,TOTAL 0.8 MG/DL (0.2-1.0); BLOOD UREA NITROGEN 9 mg/dL (7-18); CALCIUM 7.8 MG/DL (8.5-10.1); CARBON DIOXIDE 26 MMOL/L (21-32); CHLORIDE 108 MMOL/L (98-107); CREATININE 0.8 MG/DL (0.55-1.30); POTASSIUM 3.2 MMOL/L (3.5-5.1); SODIUM 142 MMOL/L (136-145)
[2020-01-29] MEDS: Sucralfate 1gm tab ORAL SCH ×4 (08:55→21:37)
[2020-01-29] MEDS: Flonase Nasal Inhaler 16gm NASAL SCH (08:55)
[2020-01-29] MEDS: Albuterol/Ipratropium 3ml neb HHN PRN ×2 (10:06→17:49)
--- NOTE | 2020-01-29 11:41 | Infectious Diseases Prog Note ---
Assessment/Plan Assessment/Plan antibiotics : meropenem A 1. strep bovis, e.eoli esbl sepsis 2. cholangitis 3. choledocholithiasis 4. leucocytosis improving 5. aspiration pneumonia 6. lung cancer 7. cirrhosis 8. increased LFT P 1. continue meropenem 2. will follow up cultures Subjective ROS Limited/Unobtainable: Yes Allergies: Coded Allergies: CODEINE (Verified Allergy, Intermediate, VOMITING, 12/31/16) IBUPROFEN (Verified Adverse Reaction, Severe, RED FACE, 12/31/16) pt has cirrhosis of liver Objective Last 24 Hour Vital Signs Date Time Temp Pulse Resp B/P (MAP) Pulse Ox O2 Delivery O2 Flow Rate FiO2 01/29/20 09:00 Nasal Cannula 4.0 01/29/20 08:00 100.8 84 18 130/81 (97) 97 01/29/20 08:00 90 01/29/20 04:00 99.9 68 20 105/66 (79) 97 01/29/20 04:00 70 01/29/20 00:00 99.9 78 22 135/50 (78) 98 01/28/20 21:00 Nasal Cannula 4.0 01/28/20 20:00 97.2 107 22 100/55 (70) 98 01/28/20 20:00 81 01/28/20 19:42 77 20 97 Nasal Cannula 2.0 28 01/28/20 19:32 79 20 97 Nasal Cannula 2.0 28 01/28/20 19:32 79 20 97 Nasal Cannula 2.0 28 01/28/20 19:32 97 Nasal Cannula 2.0 28 01/28/20 16:00 70 01/28/20 16:00 98.6 78 20 137/77 (97) 96 01/28/20 12:00 71 01/28/20 11:41 99.5 98 18 94/56 (69) 95 Height (Feet): 5 Height (Inches): 5.00 Weight (Pounds): 127 Respiratory/Chest: lungs clear Cardiovascular: normal rate, regular rhythm, no gallop/murmur Abdomen: soft, non tender Extremities: no edema Laboratory Tests Test 01/29/20 08:03 White Blood Count 18.5 K/UL (4.8-10.8) H Red Blood Count 3.55 M/UL (4.70-6.10) L Hemoglobin 11.7 G/DL (14.2-18.0) L Hematocrit 36.1 % (42.0-52.0) L Mean Corpuscular Volume 102 FL (80-99) H Mean Corpuscular Hemoglobin 33.1 PG (27.0-31.0) H Mean Corpuscular Hemoglobin Concent 32.5 G/DL (32.0-36.0) Red Cell Distribution Width 14.4 % (11.6-14.8) Platelet Count 115 K/UL (150-450) L Mean Platelet Volume 8.5 FL (6.5-10.1) Neutrophils (%) (Auto) % (45.0-75.0) Lymphocytes (%) (Auto) % (20.0-45.0) Monocytes (%) (Auto) % (1.0-10.0) Eosinophils (%) (Auto) % (0.0-3.0) Basophils (%) (Auto) % (0.0-2.0) Differential Total Cells Counted 100 Neutrophils % (Manual) 90 % (45-75) H Lymphocytes % (Manual) 4 % (20-45) L Monocytes % (Manual) 6 % (1-10) Eosinophils % (Manual) 0 % (0-3) Basophils % (Manual) 0 % (0-2) Band Neutrophils 0 % (0-8) Platelet Estimate Decreased L Platelet Morphology Normal Anisocytosis 1+ Macrocytosis 1+ Sodium Level 142 MMOL/L (136-145) Potassium Level 3.2 MMOL/L (3.5-5.1) L Chloride Level 108 MMOL/L (98-107) H Carbon Dioxide Level 26 MMOL/L (21-32) Anion Gap 8 mmol/L (5-15) Blood Urea Nitrogen 9 mg/dL (7-18) Creatinine 0.8 MG/DL (0.55-1.30) Estimat Glomerular Filtration Rate > 60 mL/min (>60) Glucose Level 140 MG/DL (74-106) H Calcium Level 7.8 MG/DL (8.5-10.1) L Total Bilirubin 0.8 MG/DL (0.2-1.0) Aspartate Amino Transf (AST/SGOT) 41 U/L (15-37) H Alanine Aminotransferase (ALT/SGPT) 76 U/L (12-78) Alkaline Phosphatase 646 U/L (46-116) H Total Protein 5.5 G/DL (6.4-8.2) L Albumin 1.6 G/DL (3.4-5.0) L Globulin 3.9 g/dL Albumin/Globulin Ratio 0.4 (1.0-2.7) L Current Medications Medications (Trade) Dose Ordered Sig/Kayla Route PRN Reason Start Time Stop Time Status Last Admin Dose Admin Albuterol/ Ipratropium (Albuterol/ Ipratropium) 3 ml Q6HRT PRN HHN Shortness of breath 01/28/20 18:45 02/02/20 18:44 01/29/20 10:06 Artificial Tears (Akwa-Tears) 1 drop TID BOTH EYES 01/27/20 09:00 02/26/20 08:59 01/29/20 08:55 Chlorhexidine Gluconate (Jyoti-Hex 2%) 1 applic DAILY@2000 TOPIC 01/26/20 20:00 04/25/20 19:59 01/28/20 21:40 Fluticasone Propionate (Flonase) 1 spray DAILY NASAL 01/28/20 00:00 02/27/20 00:00 01/29/20 08:55 Magnesium Hydroxide (Mom) 30 ml DAILYPRN PRN ORAL Constipation 01/26/20 06:30 02/25/20 06:29 Meropenem 1 gm/ Sodium Chloride 55 ml @ 110 mls/hr Q8HR IVPB 01/28/20 22:00 02/02/20 21:59 01/29/20 06:09 Morphine Sulfate (Morphine Sulfate) 1 mg Q4H PRN IVP For Pain 01/25/20 08:45 02/01/20 08:44 01/25/20 10:22 Pantoprazole (Protonix) 40 mg DAILY ORAL 01/28/20 09:00 02/27/20 08:59 01/29/20 08:55 Potassium Chloride (K-Dur) 20 meq ONCE ORAL 01/29/20 11:00 01/29/20 12:00 Sucralfate (Carafate) 1 gm FOUR TIMES A DAY ORAL 01/27/20 13:00 04/26/20 12:59 01/29/20 08:55 Georgina Kang MD Jan 29, 2020:41
[2020-01-29 12:00] VITALS: BP 129/71
[2020-01-29] MEDS ORDERED: Varibar Nectar 240ml MC PRN (15:45)
[2020-01-29] MEDS ORDERED: Varibar Pudding 230ml MC PRN (15:45)
[2020-01-29] MEDS ORDERED: Varibar Honey 250ml MC PRN (15:45)
[2020-01-29] MEDS ORDERED: Varibar Thin Liquid powder 148gm MC PRN (15:45)
[2020-01-29 16:00] VITALS: BP 120/75
--- NOTE | 2020-01-29 17:05 | Surgery Progress Note ---
Surgery Progress Note Subjective Symptoms: improved, tolerating diet, voiding well, passing flatus, BM Objective Last 24 Hour Vital Signs Date Time Temp Pulse Resp B/P (MAP) Pulse Ox O2 Delivery O2 Flow Rate FiO2 01/29/20 16:00 101.0 86 21 120/75 (90) 98 01/29/20 16:00 84 01/29/20 12:00 73 01/29/20 12:00 96.6 77 21 129/71 (90) 98 01/29/20 10:26 85 20 99 Nasal Cannula 2.0 28 84 20 95 01/29/20 09:00 Nasal Cannula 4.0 01/29/20 08:00 100.8 84 18 130/81 (97) 97 01/29/20 08:00 90 01/29/20 07:02 95 Nasal Cannula 2.0 28 01/29/20 07:02 84 20 95 Nasal Cannula 2.0 28 01/29/20 04:00 99.9 68 20 105/66 (79) 97 01/29/20 04:00 70 01/29/20 00:00 99.9 78 22 135/50 (78) 98 01/28/20 21:00 Nasal Cannula 4.0 01/28/20 20:00 97.2 107 22 100/55 (70) 98 01/28/20 20:00 81 01/28/20 19:42 77 20 97 Nasal Cannula 2.0 28 01/28/20 19:32 79 20 97 Nasal Cannula 2.0 28 01/28/20 19:32 79 20 97 Nasal Cannula 2.0 28 01/28/20 19:32 97 Nasal Cannula 2.0 28 I&O Intake and Output 01/28/20 01/29/20 19:00 07:00 Intake Total 600 ml 300 ml Output Total 800 ml 450 ml Balance -200 ml -150 ml Intake Oral 600 ml 300 ml Output Urine Total 800 ml 450 ml # Voids 4 # Bowel Movements 1 1 Cardiovascular: RSR Respiratory: clear Abdomen: soft, non-tender, present bowel sounds, non-distended Extremities: no edema, no tenderness, no cyanosis Laboratory Tests Test 01/29/20 08:03 01/29/20 12:50 White Blood Count 18.5 K/UL (4.8-10.8) H Red Blood Count 3.55 M/UL (4.70-6.10) L Hemoglobin 11.7 G/DL (14.2-18.0) L Hematocrit 36.1 % (42.0-52.0) L Mean Corpuscular Volume 102 FL (80-99) H Mean Corpuscular Hemoglobin 33.1 PG (27.0-31.0) H Mean Corpuscular Hemoglobin Concent 32.5 G/DL (32.0-36.0) Red Cell Distribution Width 14.4 % (11.6-14.8) Platelet Count 115 K/UL (150-450) L Mean Platelet Volume 8.5 FL (6.5-10.1) Neutrophils (%) (Auto) % (45.0-75.0) Lymphocytes (%) (Auto) % (20.0-45.0) Monocytes (%) (Auto) % (1.0-10.0) Eosinophils (%) (Auto) % (0.0-3.0) Basophils (%) (Auto) % (0.0-2.0) Differential Total Cells Counted 100 Neutrophils % (Manual) 90 % (45-75) H Lymphocytes % (Manual) 4 % (20-45) L Monocytes % (Manual) 6 % (1-10) Eosinophils % (Manual) 0 % (0-3) Basophils % (Manual) 0 % (0-2) Band Neutrophils 0 % (0-8) Platelet Estimate Decreased L Platelet Morphology Normal Anisocytosis 1+ Macrocytosis 1+ Sodium Level 142 MMOL/L (136-145) Potassium Level 3.2 MMOL/L (3.5-5.1) L Chloride Level 108 MMOL/L (98-107) H Carbon Dioxide Level 26 MMOL/L (21-32) Anion Gap 8 mmol/L (5-15) Blood Urea Nitrogen 9 mg/dL (7-18) Creatinine 0.8 MG/DL (0.55-1.30) Estimat Glomerular Filtration Rate > 60 mL/min (>60) Glucose Level 140 MG/DL (74-106) H Calcium Level 7.8 MG/DL (8.5-10.1) L Total Bilirubin 0.8 MG/DL (0.2-1.0) Aspartate Amino Transf (AST/SGOT) 41 U/L (15-37) H Alanine Aminotransferase (ALT/SGPT) 76 U/L (12-78) Alkaline Phosphatase 646 U/L (46-116) H Total Protein 5.5 G/DL (6.4-8.2) L Albumin 1.6 G/DL (3.4-5.0) L Globulin 3.9 g/dL Albumin/Globulin Ratio 0.4 (1.0-2.7) L Vancomycin Level Trough 7.3 ug/mL (5.0-12.0) Plan Problems: (1) Metastatic primary lung cancer Assessment & Plan: as per oncology input appreciated (2) Right lower lobe pneumonia (3) Liver cirrhosis (4) Abdominal pain Assessment & Plan: lft's elevated possible cholecystitis pending MRCP - noted choledocholithiasis pending HIDA - ... US ordered noted npo iv fluids iv abx trend labs will follow with recs Unable to do an ERCP given the patient has history of antrectomy and Micah-en-Y surgery. Recommend the patient to be transferred to [facility] for double balloon ERCP. transfer but refusing likely passed stone dc outpatient gi f/u ABDOMEN: Liver: Unremarkable. No mass. Gallbladder and bile ducts: There is moderate to marked intra-and extrahepatic biliary ductal dilatation, with the common bile duct measuring up to 15 mm in diameter. Pancreas: Unremarkable. No mass. No ductal dilation. Spleen: Unremarkable. No splenomegaly. Adrenals: Unremarkable. No mass. Kidneys and ureters: Unremarkable. No solid mass. No hydronephrosis. Stomach and bowel: Postsurgical changes seen regional to the gastroesophageal junction. No evidence of bowel obstruction. No definite bowel wall thickening. PELVIS: Appendix: No findings to suggest acute appendicitis. Bladder: Moderate distention of the urinary bladder. No bladder wall thickening. No intraluminal calculi. Reproductive: Penile prosthesis in place. ABDOMEN and PELVIS: Intraperitoneal space: Unremarkable. No free air. No significant fluid collection. Bones/joints: No acute fracture. No dislocation. Soft tissues: Unremarkable. Vasculature: Unremarkable. No abdominal aortic aneurysm. Lymph nodes: Unremarkable. No enlarged lymph nodes. IMPRESSION: Patchy airspace opacities in the right upper and right middle lobes may be associated with multifocal pneumonia. Please correlate with patient's respiratory status. Moderate intra-and extrahepatic biliary ductal dilatation. Please correlate with lab work to assess for acute biliary obstruction, which may be associated with ampullary lesion or obstructing gallstone. If further imaging is warranted consider MRCP. (5) penile prosthesis implant Bryan Garcia Jan 29, 2020 17:05
[2020-01-29] MEDS: Acetaminophen 500mg (ES) tab ORAL PRN (17:10)
--- NOTE | 2020-01-29 18:30 | Pulmonology Progress Note ---
Subjective ROS Limited/Unobtainable: Yes Constitutional: Reports: no symptoms Gastrointestinal/Abdominal: Reports: diarrhea Musculoskeletal: Denies: pain Allergies: Coded Allergies: CODEINE (Verified Allergy, Intermediate, VOMITING, 12/31/16) IBUPROFEN (Verified Adverse Reaction, Severe, RED FACE, 12/31/16) pt has cirrhosis of liver Objective Last 24 Hour Vital Signs Date Time Temp Pulse Resp B/P (MAP) Pulse Ox O2 Delivery O2 Flow Rate FiO2 01/29/20 17:50 73 16 97 Nasal Cannula 2.0 28 96 16 94 01/29/20 16:00 101.0 86 21 120/75 (90) 98 01/29/20 16:00 84 01/29/20 12:00 73 01/29/20 12:00 96.6 77 21 129/71 (90) 98 01/29/20 10:26 85 20 99 Nasal Cannula 2.0 28 84 20 95 01/29/20 09:00 Nasal Cannula 4.0 01/29/20 08:00 100.8 84 18 130/81 (97) 97 01/29/20 08:00 90 01/29/20 07:02 95 Nasal Cannula 2.0 28 01/29/20 07:02 84 20 95 Nasal Cannula 2.0 28 01/29/20 04:00 99.9 68 20 105/66 (79) 97 01/29/20 04:00 70 01/29/20 00:00 99.9 78 22 135/50 (78) 98 01/28/20 21:00 Nasal Cannula 4.0 01/28/20 20:00 97.2 107 22 100/55 (70) 98 01/28/20 20:00 81 01/28/20 19:42 77 20 97 Nasal Cannula 2.0 28 01/28/20 19:32 79 20 97 Nasal Cannula 2.0 28 01/28/20 19:32 79 20 97 Nasal Cannula 2.0 28 01/28/20 19:32 97 Nasal Cannula 2.0 28 Intake and Output 01/28/20 01/29/20 19:00 07:00 Intake Total 600 ml 300 ml Output Total 800 ml 450 ml Balance -200 ml -150 ml Intake Oral 600 ml 300 ml Output Urine Total 800 ml 450 ml # Voids 4 # Bowel Movements 1 1 Laboratory Tests 01/29/20 08:03: White Blood Count 18.5H, Red Blood Count 3.55L, Hemoglobin 11.7L, Hematocrit 36.1L, Mean Corpuscular Volume 102H, Mean Corpuscular Hemoglobin 33.1H, Mean Corpuscular Hemoglobin Concent 32.5, Red Cell Distribution Width 14.4, Platelet Count 115L, Mean Platelet Volume 8.5, Neutrophils (%) (Auto) , Lymphocytes (%) (Auto) , Monocytes (%) (Auto) , Eosinophils (%) (Auto) , Basophils (%) (Auto) , Differential Total Cells Counted 100, Neutrophils % (Manual) 90H, Lymphocytes % (Manual) 4L, Monocytes % (Manual) 6, Eosinophils % (Manual) 0, Basophils % (Manual) 0, Band Neutrophils 0, Platelet Estimate DecreasedL, Platelet Mo rphology Normal, Anisocytosis 1+, Macrocytosis 1+, Sodium Level 142, Potassium Level 3.2L, Chloride Level 108H, Carbon Dioxide Level 26, Anion Gap 8, Blood Urea Nitrogen 9, Creatinine 0.8, Estimat Glomerular Filtration Rate > 60, Glucose Level 140H, Calcium Level 7.8L, Total Bilirubin 0.8, Aspartate Amino Transf (AST/SGOT) 41H, Alanine Aminotransferase (ALT/SGPT) 76, Alkaline Phosphatase 646H, Total Protein 5.5L, Albumin 1.6L, Globulin 3.9, Albumin/Globulin Ratio 0.4L 01/29/20 12:50: Vancomycin Level Trough 7.3 Current Medications Medications (Trade) Dose Ordered Sig/Kayla Route PRN Reason Start Time Stop Time Status Last Admin Dose Admin Acetaminophen (Tylenol) 500 mg Q6H PRN ORAL Temp >100.5 01/29/20 12:30 02/28/20 12:29 01/29/20 17:10 Albuterol/ Ipratropium (Albuterol/ Ipratropium) 3 ml Q6HRT PRN HHN Shortness of breath 01/28/20 18:45 02/02/20 18:44 01/29/20 17:49 Artificial Tears (Akwa-Tears) 1 drop TID BOTH EYES 01/27/20 09:00 02/26/20 08:59 01/29/20 17:08 Barium Sulfate (Varibar Honey) 250 ml NOW PRN MC RAD 01/29/20 15:45 02/01/20 15:43 Barium Sulfate (Varibar Hepler) 240 ml NOW PRN MC RAD 01/29/20 15:45 02/01/20 15:43 Barium Sulfate (Varibar Pudding) 230 ml NOW PRN MC RAD 01/29/20 15:45 02/01/20 15:43 Barium Sulfate (Varibar Thin Liquid powder) 148 gm NOW PRN MC RAD 01/29/20 15:45 02/01/20 15:43 Chlorhexidine Gluconate (Jyoti-Hex 2%) 1 applic DAILY@2000 TOPIC 01/26/20 20:00 04/25/20 19:59 01/28/20 21:40 Fluticasone Propionate (Flonase) 1 spray DAILY NASAL 01/28/20 00:00 02/27/20 00:00 01/29/20 08:55 Magnesium Hydroxide (Mom) 30 ml DAILYPRN PRN ORAL Constipation 01/26/20 06:30 02/25/20 06:29 Meropenem 1 gm/ Sodium Chloride 55 ml @ 110 mls/hr Q8HR IVPB 01/28/20 22:00 02/02/20 21:59 01/29/20 13:28 Morphine Sulfate (Morphine Sulfate) 1 mg Q4H PRN IVP For Pain 01/25/20 08:45 02/01/20 08:44 01/25/20 10:22 Pantoprazole (Protonix) 40 mg DAILY ORAL 01/28/20 09:00 02/27/20 08:59 01/29/20 08:55 Sucralfate (Carafate) 1 gm FOUR TIMES A DAY ORAL 01/27/20 13:00 04/26/20 12:59 01/29/20 17:08 Assessment/Plan Assessment/Plan Pumonary Consultation HPI: Patient is a 74 year old man admitted complaining of abdominal pain and vomiting, felt he possibly aspirated. Noted to have pneumonia on CXR and CT. The patient has a history of metastatic lung CA and began chemotherapy 3 weeks ago via port. He has been losing weight. Noted to have moderate intra-and extrahepatic biliary ductal dilatation,awaiting transfer to [facility] for ERCP. Noted to have Strep Bovis and ESBL E Coli on BC Past medical History: Metastatic lung Cancer, Cirrhosis, Choledocholithiasis Past Surgical History: Duodenectomy, penile implant, retinal surgery, Port a cath No fevers, chills, sore throat, chest pain, palpitations, dysuria, shortness of breath, joint pain, rashes, visual changes, dizziness, headache. Denies change in his bowels, hematochezia or melena or bright red blood. Abdominal pain improving, tolerating diet, GI/Surgery following Allergies: CODEINE (Verified Allergy, Intermediate, VOMITING, 12/31/16) IBUPROFEN (Verified Adverse Reaction, Severe, RED FACE, 12/31/16) Past Medical History: see triage record Social History: previous smoking history Social History: NA All Other Systems: negative except mentioned in HPI Physical Exam Vital Signs Noted General Appearance: thin, other - Cachectic, Chronically Ill Head: normocephalic, atraumatic Eyes: bilateral eye EOMI, bilateral eye other - Bilateral cataracts more dense on the left ENT: dry mucus membranes Respiratory: chest non-tender, rales - Dry right base Cardiovascular: normal HS1, HS2, normal peripheral pulses, regular rate, rhythm, other - Port-A-Cath right Gastrointestinal: normal bowel sounds, no mass, no guarding, no rebound, non tender Genitourinary: no CVA tenderness Musculoskeletal: back normal Neurologic: alert, oriented x3, grossly normal Psychiatric: mood/affect normal Skin: no rash, warm/dry, no edema Medical Decision Making Impression: Aspiration Pneumonia Strep bovis, E.Coli Esbl sepsis Metastatic Lung Cancer on chemotherapy Abdominal pain Intra-and extrahepatic biliary ductal dilatation Previous Duodenectomy Cirrhosis Cholangitis Choledocholithiasis IPlan: IV antibiotics per ID Aspiration precautions Speech therapy evaluation of swallow Oxygen PRN Monitor labs PPX Await ERCP Laboratory Tests Noted EKG: Rate: normal Rhythm: NSR ST Segments: no acute changes Chest X-Ray: no pneumothorax, other - possible effusion R and infiltrates, portacath CT Abdomen Patchy airspace opacities in the right upper and right middle lobes maybe associated with multifocal pneumonia. Please correlate with patient's respiratory status. Moderate intra-and extrahepatic biliary ductal dilatation. Jamie Monge MD Jan 29, 2020 18:30
[2020-01-29 20:00] VITALS: BP 100/61
[2020-01-29] MEDS: Dyna-Hex 2% Top Sol 2oz TOPIC SCH (21:36)
[2020-01-30] VITALS: BP 113/66
[2020-01-30] MEDS: Acetaminophen 500mg (ES) tab ORAL PRN ×3 (00:49→21:03)
[2020-01-30 04:00] VITALS: BP 107/60
[2020-01-30] MEDS: Meropenem 1 GM in NS 55 ML IVPB SCH ×3 (05:09→21:02)
--- NOTE | 2020-01-30 06:47 | Hematology/Onc Progress Note ---
Assessment/Plan Assessment/Plan Assessment and Recs # Metastatic primary lung cancer, recently started on chemotherapy at [facility] with Dr. Aggarwal, has been on 2 immunotherapies and 1 chemotherapy backbone --> is scheduled to get C2 of chemo 01/25, likely to be delayed now --> continue with outpatient f/u --> brain imaging as needed, commonly can spread to brain --> pet after 3-4 months current chemo # Leukocytosis likely related to Right lower lobe pneumonia --> abx as per id --> pulm eval as well --> imaging serially --> wbc 42-->27->21-->18 --> s/p ERCP but given partial gastrectomy was unsuccessful needs transfer to [facility] for double balloon ERCP but patient is refusing repeat labs # Thrombocytopenia is related to cirrhosis --> plt count 115 # Anemia due to iron deficiency and neoplasm --> hgb 12-->11->9-->11 --> to continue iron # Liver cirrhosis -> lonngstanding # Abdominal pain, lft's elevated --> per surg, gi mrcp, hida noted--> as above refusing workup --> ercp unsuccessful # Dehydration --> ivf, goal euvolemia # Penile prosthesis in place. # Dvt ppx scds Appreciate consultation and shannon RN Subjective HEENT: Denies: no symptoms, eye pain, blurred vision, tearing, double vision, ear pain, ear discharge, nose pain, nose congestion, throat pain, throat swelling, mouth pain, mouth swelling, other Cardiovascular: Denies: no symptoms, chest pain, edema, irregular heart rate, lightheadedness, palpitations, syncope, other Respiratory: Denies: no symptoms, cough, shortness of breath, SOB with excertion, SOB at rest, sputum, wheezing, other Genitourinary: Denies: no symptoms, burning, discharge, frequency, flank pain, hematuria, incontinence, pain, urgency, other Neurologic/Psychiatric: Denies: no symptoms, anxiety, depressed, emotional problems, headache, numbness, paresthesia, pre-existing deficit, seizure, tingling, tremors, weakness, other Endocrine: Denies: no symptoms, excessive sweating, flushing, intolerance to cold, intolerance to heat, increased hunger, increased thirst, increased urine, unexplained weight gain, unexplained weight loss, other Hematologic/Lymphatic: Denies: no symptoms, anemia, easy bleeding, easy bruising, adenopathy, other Allergies: Coded Allergies: CODEINE (Verified Allergy, Intermediate, VOMITING, 12/31/16) IBUPROFEN (Verified Adverse Reaction, Severe, RED FACE, 12/31/16) pt has cirrhosis of liver Subjective 01/26 meds noted, no bleeding, to undergo ercp, have dw rn 01/28 labs reviewed meds noted, wbc trending better, to undergo labs 01/29 refused labs, is on abx, meds noted, on merop Objective Objective Current Medications Medications (Trade) Dose Ordered Sig/Kayla Route PRN Reason Start Time Stop Time Status Last Admin Dose Admin Acetaminophen (Tylenol) 500 mg Q6H PRN ORAL Temp >100.5 01/29/20 12:30 02/28/20 12:29 01/30/20 00:49 Albuterol/ Ipratropium (Albuterol/ Ipratropium) 3 ml Q6HRT PRN HHN Shortness of breath 01/28/20 18:45 02/02/20 18:44 01/29/20 17:49 Artificial Tears (Akwa-Tears) 1 drop TID BOTH EYES 01/27/20 09:00 02/26/20 08:59 01/29/20 17:08 Barium Sulfate (Varibar Honey) 250 ml NOW PRN MC RAD 01/29/20 15:45 02/01/20 15:43 Barium Sulfate (Varibar Cunningham) 240 ml NOW PRN MC RAD 01/29/20 15:45 02/01/20 15:43 Barium Sulfate (Varibar Pudding) 230 ml NOW PRN MC RAD 01/29/20 15:45 02/01/20 15:43 Barium Sulfate (Varibar Thin Liquid powder) 148 gm NOW PRN MC RAD 01/29/20 15:45 02/01/20 15:43 Chlorhexidine Gluconate (Jyoti-Hex 2%) 1 applic DAILY@2000 TOPIC 01/26/20 20:00 04/25/20 19:59 01/29/20 21:36 Fluticasone Propionate (Flonase) 1 spray DAILY NASAL 01/28/20 00:00 02/27/20 00:00 01/29/20 08:55 Magnesium Hydroxide (Mom) 30 ml DAILYPRN PRN ORAL Constipation 01/26/20 06:30 02/25/20 06:29 Meropenem 1 gm/ Sodium Chloride 55 ml @ 110 mls/hr Q8HR IVPB 01/28/20 22:00 02/02/20 21:59 01/30/20 05:09 Morphine Sulfate (Morphine Sulfate) 1 mg Q4H PRN IVP For Pain 01/25/20 08:45 02/01/20 08:44 01/25/20 10:22 Pantoprazole (Protonix) 40 mg DAILY ORAL 01/28/20 09:00 02/27/20 08:59 01/29/20 08:55 Sucralfate (Carafate) 1 gm FOUR TIMES A DAY ORAL 01/27/20 13:00 04/26/20 12:59 01/29/20 21:37 Last 24 Hour Vital Signs Date Time Temp Pulse Resp B/P (MAP) Pulse Ox O2 Delivery O2 Flow Rate FiO2 01/30/20 04:00 100.0 79 20 107/60 (76) 94 01/30/20 04:00 79 01/30/20 01:19 99.3 01/30/20 00:00 87 01/30/20 00:00 100.6 78 20 113/66 (82) 94 01/29/20 21:00 Nasal Cannula 4.0 01/29/20 20:18 94 Nasal Cannula 2.0 28 01/29/20 20:18 88 20 94 Nasal Cannula 2.0 28 01/29/20 20:00 100.2 84 18 100/61 (74) 94 01/29/20 20:00 88 01/29/20 17:50 73 16 97 Nasal Cannula 2.0 28 96 16 94 01/29/20 17:40 99.7 01/29/20 16:00 101.0 86 21 120/75 (90) 98 01/29/20 16:00 84 01/29/20 12:00 73 01/29/20 12:00 96.6 77 21 129/71 (90) 98 01/29/20 10:26 85 20 99 Nasal Cannula 2.0 28 84 20 95 01/29/20 09:00 Nasal Cannula 4.0 01/29/20 08:00 100.8 84 18 130/81 (97) 97 01/29/20 08:00 90 01/29/20 07:02 95 Nasal Cannula 2.0 28 01/29/20 07:02 84 20 95 Nasal Cannula 2.0 28 01/29/20 04:00 99.9 68 20 105/66 (79) 97 01/29/20 04:00 70 01/29/20 00:00 99.9 78 22 135/50 (78) 98 01/28/20 21:00 Nasal Cannula 4.0 01/28/20 20:00 97.2 107 22 100/55 (70) 98 01/28/20 20:00 81 01/28/20 19:42 77 20 97 Nasal Cannula 2.0 28 01/28/20 19:32 79 20 97 Nasal Cannula 2.0 28 01/28/20 19:32 79 20 97 Nasal Cannula 2.0 28 01/28/20 19:32 97 Nasal Cannula 2.0 28 01/28/20 16:00 70 01/28/20 16:00 98.6 78 20 137/77 (97) 96 01/28/20 12:00 71 01/28/20 11:41 99.5 98 18 94/56 (69) 95 01/28/20 09:00 Nasal Cannula 2.0 01/28/20 08:00 90 01/28/20 08:00 97.7 89 20 123/81 (95) 94 Intake and Output 01/29/20 01/30/20 19:00 07:00 Intake Total 120 ml 610 ml Output Total 1200 ml Balance -1080 ml 610 ml Intake Oral 120 ml 500 ml IV Total 110 ml Output Urine Total 1200 ml # Voids 3 3 # Bowel Movements 1 Labs Test 01/28/20 01:00 01/28/20 06:40 01/29/20 08:03 01/29/20 12:50 Random Vancomycin Level 4.8 ug/mL White Blood Count 21.6 K/UL (4.8-10.8) 18.5 K/UL (4.8-10.8) Red Blood Count 3.20 M/UL (4.70-6.10) 3.55 M/UL (4.70-6.10) Hemoglobin 10.6 G/DL (14.2-18.0) 11.7 G/DL (14.2-18.0) Hematocrit 32.4 % (42.0-52.0) 36.1 % (42.0-52.0) Mean Corpuscular Volume 101 FL (80-99) 102 FL (80-99) Mean Corpuscular Hemoglobin 33.0 PG (27.0-31.0) 33.1 PG (27.0-31.0) Mean Corpuscular Hemoglobin Concent 32.6 G/DL (32.0-36.0) 32.5 G/DL (32.0-36.0) Red Cell Distribution Width 14.6 % (11.6-14.8) 14.4 % (11.6-14.8) Platelet Count 126 K/UL (150-450) 115 K/UL (150-450) Mean Platelet Volume 8.3 FL (6.5-10.1) 8.5 FL (6.5-10.1) Neutrophils (%) (Auto) % (45.0-75.0) % (45.0-75.0) Lymphocytes (%) (Auto) % (20.0-45.0) % (20.0-45.0) Monocytes (%) (Auto) % (1.0-10.0) % (1.0-10.0) Eosinophils (%) (Auto) % (0.0-3.0) % (0.0-3.0) Basophils (%) (Auto) % (0.0-2.0) % (0.0-2.0) Differential Total Cells Counted 100 100 Neutrophils % (Manual) 86 % (45-75) 90 % (45-75) Lymphocytes % (Manual) 7 % (20-45) 4 % (20-45) Monocytes % (Manual) 1 % (1-10) 6 % (1-10) Eosinophils % (Manual) 1 % (0-3) 0 % (0-3) Basophils % (Manual) 0 % (0-2) 0 % (0-2) Band Neutrophils 5 % (0-8) 0 % (0-8) Platelet Estimate Decreased Decreased Platelet Morphology Normal Normal Anisocytosis 1+ 1+ Sodium Level 140 MMOL/L (136-145) 142 MMOL/L (136-145) Potassium Level 3.5 MMOL/L (3.5-5.1) 3.2 MMOL/L (3.5-5.1) Chloride Level 110 MMOL/L (98-107) 108 MMOL/L (98-107) Carbon Dioxide Level 25 MMOL/L (21-32) 26 MMOL/L (21-32) Anion Gap 5 mmol/L (5-15) 8 mmol/L (5-15) Blood Urea Nitrogen 12 mg/dL (7-18) 9 mg/dL (7-18) Creatinine 0.7 MG/DL (0.55-1.30) 0.8 MG/DL (0.55-1.30) Estimat Glomerular Filtration Rate > 60 mL/min (>60) > 60 mL/min (>60) Glucose Level 101 MG/DL (74-106) 140 MG/DL (74-106) Calcium Level 7.4 MG/DL (8.5-10.1) 7.8 MG/DL (8.5-10.1) Total Bilirubin 0.8 MG/DL (0.2-1.0) 0.8 MG/DL (0.2-1.0) Aspartate Amino Transf (AST/SGOT) 50 U/L (15-37) 41 U/L (15-37) Alanine Aminotransferase (ALT/SGPT) 97 U/L (12-78) 76 U/L (12-78) Alkaline Phosphatase 594 U/L (46-116) 646 U/L (46-116) Total Protein 5.0 G/DL (6.4-8.2) 5.5 G/DL (6.4-8.2) Albumin 1.5 G/DL (3.4-5.0) 1.6 G/DL (3.4-5.0) Globulin 3.5 g/dL 3.9 g/dL Albumin/Globulin Ratio 0.4 (1.0-2.7) 0.4 (1.0-2.7) Macrocytosis 1+ Vancomycin Level Trough 7.3 ug/mL (5.0-12.0) Height (Feet): 5 Height (Inches): 5.00 Weight (Pounds): 127 Objective General appearance: alert, cooperative, no distress, appears stated age Heent: Lips, mucosa, and tongue normal. Teeth and gums normal Neck: supple, symmetrical, trachea midlin Lungs: clear to auscultation bilaterally Heart: regular rate and rhythm, S1, S2 normal, no murmur, click, rub or gallop Abdomen: soft, non-tender. Bowel sounds normal. No masses, no organomegaly Extremities: extremities normal, atraumatic, no cyanosis or edema Skin: Skin color, texture, turgor normal Neurologic: Grossly normal Artie Ivory MD Jan 30, 2020 06:46
[2020-01-30 08:00] VITALS: BP 124/81
--- NOTE | 2020-01-30 08:11 | Pulmonology Progress Note ---
Subjective ROS Limited/Unobtainable: Yes Constitutional: Reports: no symptoms Gastrointestinal/Abdominal: Reports: diarrhea Musculoskeletal: Denies: pain Allergies: Coded Allergies: CODEINE (Verified Allergy, Intermediate, VOMITING, 12/31/16) IBUPROFEN (Verified Adverse Reaction, Severe, RED FACE, 12/31/16) pt has cirrhosis of liver Subjective care noted events reviewed on oxygen Objective Last 24 Hour Vital Signs Date Time Temp Pulse Resp B/P (MAP) Pulse Ox O2 Delivery O2 Flow Rate FiO2 01/30/20 04:00 100.0 79 20 107/60 (76) 94 01/30/20 04:00 79 01/30/20 01:19 99.3 01/30/20 00:00 87 01/30/20 00:00 100.6 78 20 113/66 (82) 94 01/29/20 21:00 Nasal Cannula 4.0 01/29/20 20:18 94 Nasal Cannula 2.0 28 01/29/20 20:18 88 20 94 Nasal Cannula 2.0 28 01/29/20 20:00 100.2 84 18 100/61 (74) 94 01/29/20 20:00 88 01/29/20 17:50 73 16 97 Nasal Cannula 2.0 28 96 16 94 01/29/20 17:40 99.7 01/29/20 16:00 101.0 86 21 120/75 (90) 98 01/29/20 16:00 84 01/29/20 12:00 73 01/29/20 12:00 96.6 77 21 129/71 (90) 98 01/29/20 10:26 85 20 99 Nasal Cannula 2.0 28 84 20 95 01/29/20 09:00 Nasal Cannula 4.0 Intake and Output 01/29/20 01/30/20 19:00 07:00 Intake Total 120 ml 610 ml Output Total 1200 ml Balance -1080 ml 610 ml Intake Oral 120 ml 500 ml IV Total 110 ml Output Urine Total 1200 ml # Voids 3 3 # Bowel Movements 1 Objective WDWN NAD reduced breath sounds right base without rhonchi or wheeze [id number] without MRG NABS nontender no CCE reduced LOC Laboratory Tests 01/29/20 12:50: Vancomycin Level Trough 7.3 Current Medications Medications (Trade) Dose Ordered Sig/Kayla Route PRN Reason Start Time Stop Time Status Last Admin Dose Admin Acetaminophen (Tylenol) 500 mg Q6H PRN ORAL Temp >100.5 01/29/20 12:30 02/28/20 12:29 01/30/20 00:49 Albuterol/ Ipratropium (Albuterol/ Ipratropium) 3 ml Q6HRT PRN HHN Shortness of breath 01/28/20 18:45 02/02/20 18:44 01/29/20 17:49 Artificial Tears (Akwa-Tears) 1 drop TID BOTH EYES 01/27/20 09:00 02/26/20 08:59 01/29/20 17:08 Barium Sulfate (Varibar Honey) 250 ml NOW PRN MC RAD 01/29/20 15:45 02/01/20 15:43 Barium Sulfate (Varibar Hooper) 240 ml NOW PRN MC RAD 01/29/20 15:45 02/01/20 15:43 Barium Sulfate (Varibar Pudding) 230 ml NOW PRN RAD 01/29/20 15:45 02/01/20 15:43 Barium Sulfate (Varibar Thin Liquid powder) 148 gm NOW PRN RAD 01/29/20 15:45 02/01/20 15:43 Chlorhexidine Gluconate (Jyoti-Hex 2%) 1 applic DAILY@2000 TOPIC 01/26/20 20:00 04/25/20 19:59 01/29/20 21:36 Fluticasone Propionate (Flonase) 1 spray DAILY NASAL 01/28/20 00:00 02/27/20 00:00 01/29/20 08:55 Magnesium Hydroxide (Mom) 30 ml DAILYPRN PRN ORAL Constipation 01/26/20 06:30 02/25/20 06:29 Meropenem 1 gm/ Sodium Chloride 55 ml @ 110 mls/hr Q8HR IVPB 01/28/20 22:00 02/02/20 21:59 01/30/20 05:09 Morphine Sulfate (Morphine Sulfate) 1 mg Q4H PRN IVP For Pain 01/25/20 08:45 02/01/20 08:44 01/25/20 10:22 Pantoprazole (Protonix) 40 mg DAILY ORAL 01/28/20 09:00 02/27/20 08:59 01/29/20 08:55 Sucralfate (Carafate) 1 gm FOUR TIMES A DAY ORAL 01/27/20 13:00 04/26/20 12:59 01/29/20 21:37 Assessment/Plan Assessment/Plan Impression: Aspiration Pneumonia Strep bovis, E.Coli Esbl sepsis Metastatic Lung Cancer on chemotherapy Abdominal pain Intra-and extrahepatic biliary ductal dilatation Previous Duodenectomy Cirrhosis Cholangitis Choledocholithiasis Hypoxemia IPlan: IV antibiotics per ID Aspiration precautions Speech therapy Oxygen as needed Monitor labs DVT prophylaxis Await ERCP impression, plan, and exam edited and reviewed in detail care discussed with Jah Nixon MD Jan 30, 2020 08:11
[2020-01-30] MEDS: Flonase Nasal Inhaler 16gm NASAL SCH (09:48)
--- NOTE | 2020-01-30 09:48 | General Progress Note ---
Subjective ROS Limited/Unobtainable: No Allergies: Coded Allergies: CODEINE (Verified Allergy, Intermediate, VOMITING, 12/31/16) IBUPROFEN (Verified Adverse Reaction, Severe, RED FACE, 12/31/16) pt has cirrhosis of liver Objective Last 24 Hour Vital Signs Date Time Temp Pulse Resp B/P (MAP) Pulse Ox O2 Delivery O2 Flow Rate FiO2 01/30/20 08:00 120 01/30/20 04:00 100.0 79 20 107/60 (76) 94 01/30/20 04:00 79 01/30/20 01:19 99.3 01/30/20 00:00 87 01/30/20 00:00 100.6 78 20 113/66 (82) 94 01/29/20 21:00 Nasal Cannula 4.0 01/29/20 20:18 94 Nasal Cannula 2.0 28 01/29/20 20:18 88 20 94 Nasal Cannula 2.0 28 01/29/20 20:00 100.2 84 18 100/61 (74) 94 01/29/20 20:00 88 01/29/20 17:50 73 16 97 Nasal Cannula 2.0 28 96 16 94 01/29/20 17:40 99.7 01/29/20 16:00 101.0 86 21 120/75 (90) 98 01/29/20 16:00 84 01/29/20 12:00 73 01/29/20 12:00 96.6 77 21 129/71 (90) 98 01/29/20 10:26 85 20 99 Nasal Cannula 2.0 28 84 20 95 Intake and Output 01/29/20 01/30/20 19:00 07:00 Intake Total 120 ml 610 ml Output Total 1200 ml Balance -1080 ml 610 ml Intake Oral 120 ml 500 ml IV Total 110 ml Output Urine Total 1200 ml # Voids 3 3 # Bowel Movements 1 Laboratory Tests 01/29/20 12:50: Vancomycin Level Trough 7.3 Height (Feet): 5 Height (Inches): 5.00 Weight (Pounds): 127 General Appearance: no apparent distress EENT: normal ENT inspection Neck: supple Cardiovascular: normal rate Respiratory/Chest: decreased breath sounds Abdomen: normal bowel sounds, non tender, soft Extremities: non-tender Assessment/Plan Assessment/Plan: 1. History of cirrhosis. 2. History of lung cancer, on chemotherapy. 3. History of duodenectomy. 4. Hernia repair. 5. History of retinal surgery s/p ERCP but given partial gastrectomy was unsuccessful needs transfer to [facility] for double balloon ERCP but patient is refusing repeat labs improving LFTS abx will Aime Dias MD Jan 30, 2020 09:48
[2020-01-30] MEDS: Sucralfate 1gm tab ORAL SCH ×4 (09:49→21:02)
--- NOTE | 2020-01-30 11:33 | Infectious Diseases Prog Note ---
Assessment/Plan Assessment/Plan antibiotics : meropenem A 1. strep bovis, e.eoli esbl sepsis 2. cholangitis 3. choledocholithiasis 4. leucocytosis improving 5. aspiration pneumonia 6. lung cancer 7. cirrhosis 8. increased LFT improving P 1. continue meropenem 4 more days 2. blood culture 3. will follow up cultures Subjective Constitutional: Denies: fever, chills Respiratory: Denies: shortness of breath, dry cough Gastrointestinal/Abdominal: Denies: nausea, vomiting, diarrhea Musculoskeletal: Denies: pain Allergies: Coded Allergies: CODEINE (Verified Allergy, Intermediate, VOMITING, 12/31/16) IBUPROFEN (Verified Adverse Reaction, Severe, RED FACE, 12/31/16) pt has cirrhosis of liver Objective Last 24 Hour Vital Signs Date Time Temp Pulse Resp B/P (MAP) Pulse Ox O2 Delivery O2 Flow Rate FiO2 01/30/20 08:00 120 01/30/20 08:00 98.8 96 20 124/81 (95) 95 01/30/20 04:00 100.0 79 20 107/60 (76) 94 01/30/20 04:00 79 01/30/20 01:19 99.3 01/30/20 00:00 87 01/30/20 00:00 100.6 78 20 113/66 (82) 94 01/29/20 21:00 Nasal Cannula 4.0 01/29/20 20:18 94 Nasal Cannula 2.0 28 01/29/20 20:18 88 20 94 Nasal Cannula 2.0 28 01/29/20 20:00 100.2 84 18 100/61 (74) 94 01/29/20 20:00 88 01/29/20 17:50 73 16 97 Nasal Cannula 2.0 28 96 16 94 01/29/20 17:40 99.7 01/29/20 16:00 101.0 86 21 120/75 (90) 98 01/29/20 16:00 84 01/29/20 12:00 73 01/29/20 12:00 96.6 77 21 129/71 (90) 98 Height (Feet): 5 Height (Inches): 5.00 Weight (Pounds): 127 Respiratory/Chest: lungs clear Cardiovascular: normal rate, regular rhythm, no gallop/murmur Abdomen: soft, non tender Extremities: no edema, other - right subclavian catheter Laboratory Tests Test 01/29/20 12:50 Vancomycin Level Trough 7.3 ug/mL (5.0-12.0) Current Medications Medications (Trade) Dose Ordered Sig/Kayla Route PRN Reason Start Time Stop Time Status Last Admin Dose Admin Acetaminophen (Tylenol) 500 mg Q6H PRN ORAL Temp >100.5 01/29/20 12:30 02/28/20 12:29 01/30/20 00:49 Albuterol/ Ipratropium (Albuterol/ Ipratropium) 3 ml Q6HRT PRN HHN Shortness of breath 01/28/20 18:45 02/02/20 18:44 01/29/20 17:49 Artificial Tears (Akwa-Tears) 1 drop TID BOTH EYES 01/27/20 09:00 02/26/20 08:59 01/30/20 09:48 Barium Sulfate (Varibar Honey) 250 ml NOW PRN MC RAD 01/29/20 15:45 02/01/20 15:43 Barium Sulfate (Varibar Wedron) 240 ml NOW PRN MC RAD 01/29/20 15:45 02/01/20 15:43 Barium Sulfate (Varibar Pudding) 230 ml NOW PRN MC RAD 01/29/20 15:45 02/01/20 15:43 Barium Sulfate (Varibar Thin Liquid powder) 148 gm NOW PRN MC RAD 01/29/20 15:45 02/01/20 15:43 Chlorhexidine Gluconate (Jyoti-Hex 2%) 1 applic DAILY@2000 TOPIC 01/26/20 20:00 04/25/20 19:59 01/29/20 21:36 Fluticasone Propionate (Flonase) 1 spray DAILY NASAL 01/28/20 00:00 02/27/20 00:00 01/30/20 09:48 Magnesium Hydroxide (Mom) 30 ml DAILYPRN PRN ORAL Constipation 01/26/20 06:30 02/25/20 06:29 Meropenem 1 gm/ Sodium Chloride 55 ml @ 110 mls/hr Q8HR IVPB 01/28/20 22:00 02/02/20 21:59 01/30/20 05:09 Morphine Sulfate (Morphine Sulfate) 1 mg Q4H PRN IVP For Pain 01/25/20 08:45 02/01/20 08:44 01/25/20 10:22 Pantoprazole (Protonix) 40 mg DAILY ORAL 01/28/20 09:00 02/27/20 08:59 01/30/20 09:49 Sucralfate (Carafate) 1 gm FOUR TIMES A DAY ORAL 01/27/20 13:00 04/26/20 12:59 01/30/20 09:49 Georgina Kang MD Jan 30, 2020 11:33
[2020-01-30 12:00] VITALS: BP 97/59
[2020-01-30 13:15] LABS: HEMATOCRIT 35.8 % (42.0-52.0); HEMOGLOBIN 11.6 G/DL (14.2-18.0); MEAN CORPUSCULAR VOLUME 101 FL (80-99); PLATELET COUNT 107 K/UL (150-450); RED BLOOD COUNT 3.56 M/UL (4.70-6.10); RED CELL DISTRIBUTION WIDTH 14.7 % (11.6-14.8); WHITE BLOOD COUNT 14.8 K/UL (4.8-10.8)
[2020-01-30 13:30] LABS: AMYLASE 18 U/L (25-115)
[2020-01-30 13:35] LABS: ALANINE AMINOTRANSFERASE 60 U/L (12-78); ALBUMIN 1.7 G/DL (3.4-5.0); ALBUMIN/GLOBULIN RATIO 0.4 (1.0-2.7); ALKALINE PHOSPHATASE 565 U/L (46-116); ANION GAP 8 mmol/L (5-15); ASPARTATE AMINO TRANSFERASE 43 U/L (15-37); BILIRUBIN,TOTAL 0.6 MG/DL (0.2-1.0); BLOOD UREA NITROGEN 9 mg/dL (7-18); CALCIUM 8.1 MG/DL (8.5-10.1); CARBON DIOXIDE 28 MMOL/L (21-32); CHLORIDE 111 MMOL/L (98-107); CREATININE 0.7 MG/DL (0.55-1.30); POTASSIUM 2.8 MMOL/L (3.5-5.1); SODIUM 148 MMOL/L (136-145)
[2020-01-30 15:30] VITALS: BP 103/40
[2020-01-30] MEDS ORDERED: Tubing IV Secondary IV ONE (15:45)
[2020-01-30] MEDS ORDERED: D5W 275ml ONE (15:45)
[2020-01-30] MEDS ORDERED: NS 275ml ONE (15:45)
--- NOTE | 2020-01-30 16:33 | General Progress Note ---
Subjective Allergies: Coded Allergies: CODEINE (Verified Allergy, Intermediate, VOMITING, 12/31/16) IBUPROFEN (Verified Adverse Reaction, Severe, RED FACE, 12/31/16) pt has cirrhosis of liver Subjective sob better ercp not done due to prior surgery recomended to transfer to [facility] , pt has been refusing rpt cbc if better, dc home fu out pt for gi dw dr hood and charge nurse Objective Last 24 Hour Vital Signs Date Time Temp Pulse Resp B/P (MAP) Pulse Ox O2 Delivery O2 Flow Rate FiO2 01/30/20 16:20 97.7 01/30/20 15:30 102.4 103/40 (61) 01/30/20 12:41 99.9 01/30/20 12:00 103.0 96 22 97/59 (72) 95 01/30/20 12:00 108 01/30/20 08:00 120 01/30/20 08:00 98.8 96 20 124/81 (95) 95 01/30/20 04:00 100.0 79 20 107/60 (76) 94 01/30/20 04:00 79 01/30/20 01:19 99.3 01/30/20 00:00 87 01/30/20 00:00 100.6 78 20 113/66 (82) 94 01/29/20 21:00 Nasal Cannula 4.0 01/29/20 20:18 94 Nasal Cannula 2.0 28 01/29/20 20:18 88 20 94 Nasal Cannula 2.0 28 01/29/20 20:00 100.2 84 18 100/61 (74) 94 01/29/20 20:00 88 01/29/20 17:50 73 16 97 Nasal Cannula 2.0 28 96 16 94 01/29/20 17:40 99.7 Intake and Output 01/29/20 01/30/20 19:00 07:00 Intake Total 120 ml 610 ml Output Total 1200 ml Balance -1080 ml 610 ml Intake Oral 120 ml 500 ml IV Total 110 ml Output Urine Total 1200 ml # Voids 3 3 # Bowel Movements 1 Laboratory Tests 01/30/20 12:50: White Blood Count 14.8H, Red Blood Count 3.56L, Hemoglobin 11.6L, Hematocrit 35.8L, Mean Corpuscular Volume 101H, Mean Corpuscular Hemoglobin 32.6H, Mean Corpuscular Hemoglobin Concent 32.4, Red Cell Distribution Width 14.7, Platelet Count 107L, Mean Platelet Volume 9.6, Neutrophils (%) (Auto) , Lymphocytes (%) (Auto) , Monocytes (%) (Auto) , Eosinophils (%) (Auto) , Basophils (%) (Auto) , Differential Total Cells Counted 100, Neutrophils % (Manual) 87H, Lymphocytes % (Manual) 5L, Monocytes % (Manual) 7, Eosinophils % (Manual) 1, Basophils % (Manual) 0, Band Neutrophils 0, Platelet Estimate DecreasedL, Platelet Morphology Normal, Hypochromasia 1+, Anisocytosis 1+, Macrocytosis 1+, Sodium Level 148H, Potassium Level 2.8L, Chloride Level 111H, Carbon Dioxide Level 28, Anion Gap 8, Blood Urea Nitrogen 9, Creatinine 0.7, Estimat Glomerular Filtration Rate > 60, Glucose Level 186H, Calcium Level 8.1L, Total Bilirubin 0.6, Aspartate Amino Transf (AST/SGOT) 43H, Alanine Aminotransferase (ALT/SGPT) 60, Alkaline Phosphatase 565H, Total Protein 5.9L, Albumin 1.7L, Globulin 4.2, Albumin/Globulin Ratio 0.4L, Amylase Level 18L, Lipase 43L Height (Feet): 5 Height (Inches): 5.00 Weight (Pounds): 127 General Appearance: thin, alert oriented x3 EENT: PERRL/EOMI Neck: non-tender, supple Cardiovascular: tachycardia Respiratory/Chest: crackles/rales Abdomen: non tender, soft Extremities: non-tender Assessment/Plan Assessment/Plan: leukocyotosis r/o infection , dw id dr delacruz pneumonia tachycardia secondary to fever sepsis lung ca failure of thrive dehydration cont iv abx gi singh in progress artficial tears dc plan home David Lopez MD Jan 30, 2020 16:33
--- NOTE | 2020-01-30 18:47 | Surgery Progress Note ---
Surgery Progress Note Subjective Additional Comments labs noted electrolytes being replaced no n/v tolerating oral intake no pain Objective Last 24 Hour Vital Signs Date Time Temp Pulse Resp B/P (MAP) Pulse Ox O2 Delivery O2 Flow Rate FiO2 01/30/20 16:20 97.7 01/30/20 16:00 90 01/30/20 15:30 102.4 103/40 (61) 01/30/20 12:41 99.9 01/30/20 12:00 103.0 96 22 97/59 (72) 95 01/30/20 12:00 108 01/30/20 09:00 Nasal Cannula 4.0 01/30/20 08:00 120 01/30/20 08:00 98.8 96 20 124/81 (95) 95 01/30/20 04:00 100.0 79 20 107/60 (76) 94 01/30/20 04:00 79 01/30/20 01:19 99.3 01/30/20 00:00 87 01/30/20 00:00 100.6 78 20 113/66 (82) 94 01/29/20 21:00 Nasal Cannula 4.0 01/29/20 20:18 94 Nasal Cannula 2.0 28 01/29/20 20:18 88 20 94 Nasal Cannula 2.0 28 01/29/20 20:00 100.2 84 18 100/61 (74) 94 01/29/20 20:00 88 I&O Intake and Output 01/29/20 01/30/20 19:00 07:00 Intake Total 120 ml 610 ml Output Total 1200 ml Balance -1080 ml 610 ml Intake Oral 120 ml 500 ml IV Total 110 ml Output Urine Total 1200 ml # Voids 3 3 # Bowel Movements 1 Cardiovascular: RSR Respiratory: decreased breath sounds Abdomen: soft, non-tender, present bowel sounds Extremities: no tenderness, no cyanosis Laboratory Tests Test 01/30/20 12:50 White Blood Count 14.8 K/UL (4.8-10.8) H Red Blood Count 3.56 M/UL (4.70-6.10) L Hemoglobin 11.6 G/DL (14.2-18.0) L Hematocrit 35.8 % (42.0-52.0) L Mean Corpuscular Volume 101 FL (80-99) H Mean Corpuscular Hemoglobin 32.6 PG (27.0-31.0) H Mean Corpuscular Hemoglobin Concent 32.4 G/DL (32.0-36.0) Red Cell Distribution Width 14.7 % (11.6-14.8) Platelet Count 107 K/UL (150-450) L Mean Platelet Volume 9.6 FL (6.5-10.1) Neutrophils (%) (Auto) % (45.0-75.0) Lymphocytes (%) (Auto) % (20.0-45.0) Monocytes (%) (Auto) % (1.0-10.0) Eosinophils (%) (Auto) % (0.0-3.0) Basophils (%) (Auto) % (0.0-2.0) Differential Total Cells Counted 100 Neutrophils % (Manual) 87 % (45-75) H Lymphocytes % (Manual) 5 % (20-45) L Monocytes % (Manual) 7 % (1-10) Eosinophils % (Manual) 1 % (0-3) Basophils % (Manual) 0 % (0-2) Band Neutrophils 0 % (0-8) Platelet Estimate Decreased L Platelet Morphology Normal Hypochromasia 1+ Anisocytosis 1+ Macrocytosis 1+ Sodium Level 148 MMOL/L (136-145) H Potassium Level 2.8 MMOL/L (3.5-5.1) L Chloride Level 111 MMOL/L (98-107) H Carbon Dioxide Level 28 MMOL/L (21-32) Anion Gap 8 mmol/L (5-15) Blood Urea Nitrogen 9 mg/dL (7-18) Creatinine 0.7 MG/DL (0.55-1.30) Estimat Glomerular Filtration Rate > 60 mL/min (>60) Glucose Level 186 MG/DL (74-106) H Calcium Level 8.1 MG/DL (8.5-10.1) L Total Bilirubin 0.6 MG/DL (0.2-1.0) Aspartate Amino Transf (AST/SGOT) 43 U/L (15-37) H Alanine Aminotransferase (ALT/SGPT) 60 U/L (12-78) Alkaline Phosphatase 565 U/L (46-116) H Total Protein 5.9 G/DL (6.4-8.2) L Albumin 1.7 G/DL (3.4-5.0) L Globulin 4.2 g/dL Albumin/Globulin Ratio 0.4 (1.0-2.7) L Amylase Level 18 U/L (25-115) L Lipase 43 U/L (73-393) L Plan Problems: (1) Metastatic primary lung cancer Assessment & Plan: as per oncology input appreciated (2) Right lower lobe pneumonia (3) Liver cirrhosis Assessment & Plan: DAILY ESTIMATED NEEDS: Needs based on Ca, chemo, underweight 60kg 30-40 kcals/kg 6154-1248 total kcals 1-2 g protein/kg 60-120 g total protein 25-30 mL/kg 9846-7347 total fluid mLs NUTRITION DIAGNOSIS: Increased kcal and pro needs r/t wt loss, cancer as evidenced by pt w/ mets lungs CA, on chemo, w/ suspected 18lbs wt loss, 12% wt change, currently 80% of ideal body weight. CURRENT DIET:LOW FAT, Mech soft chopped PO DIET RECOMMENDATIONS: LOW NA/ texture as tolerated + Continue Ensure Enlive TID w/ meals ADDITIONAL RECOMMENDATIONS: 1) Continue Ensure Enlive TID w/ meals (350kcal/20g prot each) 2) Obtain calibrated bed scale wts 3) Snacks in b/w meals as tolerated (4) Abdominal pain Assessment & Plan: lft's elevated possible cholecystitis pending MRCP - noted choledocholithiasis pending HIDA - ... US ordered noted npo iv fluids iv abx trend labs will follow with recs Unable to do an ERCP given the patient has history of antrectomy and Micah-en-Y surgery. Recommend the patient to be transferred to [facility] for double balloon ERCP. transfer but refusing likely passed stone dc outpatient gi f/u ABDOMEN: Liver: Unremarkable. No mass. Gallbladder and bile ducts: There is moderate to marked intra-and extrahepatic biliary ductal dilatation, with the common bile duct measuring up to 15 mm in diameter. Pancreas: Unremarkable. No mass. No ductal dilation. Spleen: Unremarkable. No splenomegaly. Adrenals: Unremarkable. No mass. Kidneys and ureters: Unremarkable. No solid mass. No hydronephrosis. Stomach and bowel: Postsurgical changes seen regional to the gastroesophageal junction. No evidence of bowel obstruction. No definite bowel wall thickening. PELVIS: Appendix: No findings to suggest acute appendicitis. Bladder: Moderate distention of the urinary bladder. No bladder wall thickening. No intraluminal calculi. Reproductive: Penile prosthesis in place. ABDOMEN and PELVIS: Intraperitoneal space: Unremarkable. No free air. No significant fluid collection. Bones/joints: No acute fracture. No dislocation. Soft tissues: Unremarkable. Vasculature: Unremarkable. No abdominal aortic aneurysm. Lymph nodes: Unremarkable. No enlarged lymph nodes. IMPRESSION: Patchy airspace opacities in the right upper and right middle lobes may be associated with multifocal pneumonia. Please correlate with patient's respiratory status. Moderate intra-and extrahepatic biliary ductal dilatation. Please correlate with lab work to assess for acute biliary obstruction, which may be associated with ampullary lesion or obstructing gallstone. If further imaging is warranted consider MRCP. (5) penile prosthesis implant Bryan Garcia Jan 30, 2020 18:47
[2020-01-30 20:00] VITALS: BP 124/64
[2020-01-30] MEDS: Albuterol/Ipratropium 3ml neb HHN PRN (20:02)
[2020-01-30] MEDS: Dyna-Hex 2% Top Sol 2oz TOPIC SCH (20:14)
[2020-01-31] VITALS: BP 109/50
[2020-01-31] MEDS: Albuterol/Ipratropium 3ml neb HHN PRN (03:22)
[2020-01-31 04:00] VITALS: BP 114/71
[2020-01-31] MEDS: Meropenem 1 GM in NS 55 ML IVPB SCH (06:21)
--- NOTE | 2020-01-31 06:39 | Hematology/Onc Progress Note ---
Assessment/Plan Assessment/Plan Assessment and Recs # Metastatic primary lung cancer, recently started on chemotherapy at [facility] with Dr. Aggarwal, has been on 2 immunotherapies and 1 chemotherapy backbone --> is scheduled to get C2 of chemo 01/25, likely to be delayed now --> continue with outpatient f/u --> brain imaging as needed, commonly can spread to brain --> pet after 3-4 months current chemo # Leukocytosis likely related to Right lower lobe pneumonia --> ABX as per id, meropenem --> pulm eval as well --> imaging serially --> wbc 42-->27->21-->18 --> s/p ERCP but given partial gastrectomy was unsuccessful needs transfer to [facility] for double balloon ERCP but patient is refusing repeat labs # Thrombocytopenia is related to cirrhosis --> plt count 115-->137 # Anemia due to iron deficiency and neoplasm --> hgb 12-->11->9-->11 --> to continue iron # Liver cirrhosis -> lonngstanding # Abdominal pain, lft's elevated --> per surg, gi mrcp, hida noted--> as above refusing workup --> ercp unsuccessful # Dehydration --> ivf, goal euvolemia # Penile prosthesis in place. # Dvt ppx scds Appreciate consultation and shannon RN Subjective HEENT: Denies: no symptoms, eye pain, blurred vision, tearing, double vision, ear pain, ear discharge, nose pain, nose congestion, throat pain, throat swelling, mouth pain, mouth swelling, other Cardiovascular: Denies: no symptoms, chest pain, edema, irregular heart rate, lightheadedness, palpitations, syncope, other Respiratory: Denies: no symptoms, cough, shortness of breath, SOB with excertion, SOB at rest, sputum, wheezing, other Gastrointestinal/Abdominal: Denies: no symptoms, abdomen distended, abdominal pain, black stools, tarry stools, blood in stool, constipated, diarrhea, difficulty swallowing, nausea, poor appetite, poor fluid intake, rectal bleeding, vomiting, other Endocrine: Denies: no symptoms, excessive sweating, flushing, intolerance to cold, intolerance to heat, increased hunger, increased thirst, increased urine, unexplained weight gain, unexplained weight loss, other Hematologic/Lymphatic: Denies: no symptoms, anemia, easy bleeding, easy bruising, adenopathy, other Allergies: Coded Allergies: CODEINE (Verified Allergy, Intermediate, VOMITING, 12/31/16) IBUPROFEN (Verified Adverse Reaction, Severe, RED FACE, 12/31/16) pt has cirrhosis of liver Subjective 01/26 meds noted, no bleeding, to undergo ercp, have dw rn 01/28 labs reviewed meds noted, wbc trending better, to undergo labs 01/29 refused labs, is on abx, meds noted, on merop 01/30 asymptomatic, no bleeding no chills, plt 107 Objective Objective Current Medications Medications (Trade) Dose Ordered Sig/Kayla Route PRN Reason Start Time Stop Time Status Last Admin Dose Admin Acetaminophen (Tylenol) 500 mg Q6H PRN ORAL Temp >100.5 01/29/20 12:30 02/28/20 12:29 01/30/20 21:03 Albuterol/ Ipratropium (Albuterol/ Ipratropium) 3 ml Q6HRT PRN HHN Shortness of breath 01/28/20 18:45 02/02/20 18:44 01/31/20 03:22 Artificial Tears (Akwa-Tears) 1 drop TID BOTH EYES 01/27/20 09:00 02/26/20 08:59 01/30/20 14:24 Barium Sulfate (Varibar Honey) 250 ml NOW PRN MC RAD 01/29/20 15:45 02/01/20 15:43 Barium Sulfate (Varibar [place]) 240 ml NOW PRN MC RAD 01/29/20 15:45 02/01/20 15:43 Barium Sulfate (Varibar Pudding) 230 ml NOW PRN MC RAD 01/29/20 15:45 02/01/20 15:43 Barium Sulfate (Varibar Thin Liquid powder) 148 gm NOW PRN MC RAD 01/29/20 15:45 02/01/20 15:43 Chlorhexidine Gluconate (Jyoti-Hex 2%) 1 applic DAILY@1999 TOPIC 01/26/20 20:00 04/25/20 19:59 01/30/20 20:14 Fluticasone Propionate (Flonase) 1 spray DAILY NASAL 01/28/20 00:00 02/27/20 00:00 01/30/20 09:48 Magnesium Hydroxide (Mom) 30 ml DAILYPRN PRN ORAL Constipation 01/26/20 06:30 02/25/20 06:29 Meropenem 1 gm/ Sodium Chloride 55 ml @ 110 mls/hr Q8HR IVPB 01/28/20 22:00 02/03/20 23:59 01/31/20 06:21 Morphine Sulfate (Morphine Sulfate) 1 mg Q4H PRN IVP For Pain 01/25/20 08:45 02/01/20 08:44 01/25/20 10:22 Pantoprazole (Protonix) 40 mg DAILY ORAL 01/28/20 09:00 02/27/20 08:59 01/30/20 09:49 Sucralfate (Carafate) 1 gm FOUR TIMES A DAY ORAL 01/27/20 13:00 04/26/20 12:59 01/30/20 21:02 Last 24 Hour Vital Signs Date Time Temp Pulse Resp B/P (MAP) Pulse Ox O2 Delivery O2 Flow Rate FiO2 01/31/20 04:00 99.1 81 22 114/71 (85) 91 01/31/20 04:00 83 01/31/20 03:23 86 18 100 Nasal Cannula 2.0 28 88 18 95 01/31/20 00:00 98.1 94 16 109/50 (69) 94 01/31/20 00:00 99 01/30/20 21:33 97.4 01/30/20 21:00 Nasal Cannula 4.0 01/30/20 20:03 88 18 99 Nasal Cannula 2.0 28 84 18 96 01/30/20 20:03 96 Nasal Cannula 2.0 28 01/30/20 20:02 84 18 96 Nasal Cannula 2.0 28 01/30/20 20:00 91 01/30/20 20:00 98.9 20 124/64 (84) 96 01/30/20 16:20 97.7 01/30/20 16:00 90 01/30/20 15:30 102.4 103/40 (61) 01/30/20 12:41 99.9 01/30/20 12:00 103.0 96 22 97/59 (72) 95 01/30/20 12:00 108 01/30/20 09:00 Nasal Cannula 4.0 01/30/20 08:00 120 01/30/20 08:00 98.8 96 20 124/81 (95) 95 01/30/20 04:00 100.0 79 20 107/60 (76) 94 01/30/20 04:00 79 01/30/20 01:19 99.3 01/30/20 00:00 87 01/30/20 00:00 100.6 78 20 113/66 (82) 94 01/29/20 21:00 Nasal Cannula 4.0 01/29/20 20:18 94 Nasal Cannula 2.0 28 01/29/20 20:18 88 20 94 Nasal Cannula 2.0 28 01/29/20 20:00 100.2 84 18 100/61 (74) 94 01/29/20 20:00 88 01/29/20 17:50 73 16 97 Nasal Cannula 2.0 28 96 16 94 01/29/20 17:40 99.7 01/29/20 16:00 101.0 86 21 120/75 (90) 98 01/29/20 16:00 84 01/29/20 12:00 73 01/29/20 12:00 96.6 77 21 129/71 (90) 98 01/29/20 10:26 85 20 99 Nasal Cannula 2.0 28 84 20 95 01/29/20 09:00 Nasal Cannula 4.0 01/29/20 08:00 100.8 84 18 130/81 (97) 97 01/29/20 08:00 90 01/29/20 07:02 95 Nasal Cannula 2.0 28 01/29/20 07:02 84 20 95 Nasal Cannula 2.0 28 Intake and Output 01/30/20 01/31/20 19:00 07:00 Intake Total 1080 ml 120 ml Output Total 1225 ml 400 ml Balance -145 ml -280 ml Intake Oral 1080 ml 120 ml Output Urine Total 1225 ml 400 ml # Bowel Movements 5 2 Labs Test 01/28/20 06:40 01/29/20 08:03 01/29/20 12:50 01/30/20 12:50 White Blood Count 21.6 K/UL (4.8-10.8) 18.5 K/UL (4.8-10.8) 14.8 K/UL (4.8-10.8) Red Blood Count 3.20 M/UL (4.70-6.10) 3.55 M/UL (4.70-6.10) 3.56 M/UL (4.70-6.10) Hemoglobin 10.6 G/DL (14.2-18.0) 11.7 G/DL (14.2-18.0) 11.6 G/DL (14.2-18.0) Hematocrit 32.4 % (42.0-52.0) 36.1 % (42.0-52.0) 35.8 % (42.0-52.0) Mean Corpuscular Volume 101 FL (80-99) 102 FL (80-99) 101 FL (80-99) Mean Corpuscular Hemoglobin 33.0 PG (27.0-31.0) 33.1 PG (27.0-31.0) 32.6 PG (27.0-31.0) Mean Corpuscular Hemoglobin Concent 32.6 G/DL (32.0-36.0) 32.5 G/DL (32.0-36.0) 32.4 G/DL (32.0-36.0) Red Cell Distribution Width 14.6 % (11.6-14.8) 14.4 % (11.6-14.8) 14.7 % (11.6-14.8) Platelet Count 126 K/UL (150-450) 115 K/UL (150-450) 107 K/UL (150-450) Mean Platelet Volume 8.3 FL (6.5-10.1) 8.5 FL (6.5-10.1) 9.6 FL (6.5-10.1) Neutrophils (%) (Auto) % (45.0-75.0) % (45.0-75.0) % (45.0-75.0) Lymphocytes (%) (Auto) % (20.0-45.0) % (20.0-45.0) % (20.0-45.0) Monocytes (%) (Auto) % (1.0-10.0) % (1.0-10.0) % (1.0-10.0) Eosinophils (%) (Auto) % (0.0-3.0) % (0.0-3.0) % (0.0-3.0) Basophils (%) (Auto) % (0.0-2.0) % (0.0-2.0) % (0.0-2.0) Differential Total Cells Counted 100 100 100 Neutrophils % (Manual) 86 % (45-75) 90 % (45-75) 87 % (45-75) Lymphocytes % (Manual) 7 % (20-45) 4 % (20-45) 5 % (20-45) Monocytes % (Manual) 1 % (1-10) 6 % (1-10) 7 % (1-10) Eosinophils % (Manual) 1 % (0-3) 0 % (0-3) 1 % (0-3) Basophils % (Manual) 0 % (0-2) 0 % (0-2) 0 % (0-2) Band Neutrophils 5 % (0-8) 0 % (0-8) 0 % (0-8) Platelet Estimate Decreased Decreased Decreased Platelet Morphology Normal Normal Normal Anisocytosis 1+ 1+ 1+ Sodium Level 140 MMOL/L (136-145) 142 MMOL/L (136-145) 148 MMOL/L (136-145) Potassium Level 3.5 MMOL/L (3.5-5.1) 3.2 MMOL/L (3.5-5.1) 2.8 MMOL/L (3.5-5.1) Chloride Level 110 MMOL/L (98-107) 108 MMOL/L (98-107) 111 MMOL/L (98-107) Carbon Dioxide Level 25 MMOL/L (21-32) 26 MMOL/L (21-32) 28 MMOL/L (21-32) Anion Gap 5 mmol/L (5-15) 8 mmol/L (5-15) 8 mmol/L (5-15) Blood Urea Nitrogen 12 mg/dL (7-18) 9 mg/dL (7-18) 9 mg/dL (7-18) Creatinine 0.7 MG/DL (0.55-1.30) 0.8 MG/DL (0.55-1.30) 0.7 MG/DL (0.55-1.30) Estimat Glomerular Filtration Rate > 60 mL/min (>60) > 60 mL/min (>60) > 60 mL/min (>60) Glucose Level 101 MG/DL (74-106) 140 MG/DL (74-106) 186 MG/DL (74-106) Calcium Level 7.4 MG/DL (8.5-10.1) 7.8 MG/DL (8.5-10.1) 8.1 MG/DL (8.5-10.1) Total Bilirubin 0.8 MG/DL (0.2-1.0) 0.8 MG/DL (0.2-1.0) 0.6 MG/DL (0.2-1.0) Aspartate Amino Transf (AST/SGOT) 50 U/L (15-37) 41 U/L (15-37) 43 U/L (15-37) Alanine Aminotransferase (ALT/SGPT) 97 U/L (12-78) 76 U/L (12-78) 60 U/L (12-78) Alkaline Phosphatase 594 U/L (46-116) 646 U/L (46-116) 565 U/L (46-116) Total Protein 5.0 G/DL (6.4-8.2) 5.5 G/DL (6.4-8.2) 5.9 G/DL (6.4-8.2) Albumin 1.5 G/DL (3.4-5.0) 1.6 G/DL (3.4-5.0) 1.7 G/DL (3.4-5.0) Globulin 3.5 g/dL 3.9 g/dL 4.2 g/dL Albumin/Globulin Ratio 0.4 (1.0-2.7) 0.4 (1.0-2.7) 0.4 (1.0-2.7) Macrocytosis 1+ 1+ Vancomycin Level Trough 7.3 ug/mL (5.0-12.0) Hypochromasia 1+ Amylase Level 18 U/L (25-115) Lipase 43 U/L (73-393) Height (Feet): 5 Height (Inches): 5.00 Weight (Pounds): 127 Objective General appearance: alert, cooperative, no distress, appears stated age Heent: Lips, mucosa, and tongue normal. Teeth and gums normal Neck: supple, symmetrical, trachea midlin Lungs: clear to auscultation bilaterally Heart: regular rate and rhythm, S1, S2 normal, no murmur, click, rub or gallop Abdomen: soft, non-tender. Bowel sounds normal. No masses, no organomegaly Extremities: extremities normal, atraumatic, no cyanosis or edema Skin: Skin color, texture, turgor normal Neurologic: Grossly normal Artie Ivory MD Jan 31, 2020 06:39
[2020-01-31 07:26] LABS: HEMATOCRIT 34.5 % (42.0-52.0); HEMOGLOBIN 11.4 G/DL (14.2-18.0); MEAN CORPUSCULAR VOLUME 99 FL (80-99); PLATELET COUNT 103 K/UL (150-450); RED BLOOD COUNT 3.49 M/UL (4.70-6.10); RED CELL DISTRIBUTION WIDTH 14.3 % (11.6-14.8); WHITE BLOOD COUNT 11.6 K/UL (4.8-10.8)
[2020-01-31 07:28] LABS: ALANINE AMINOTRANSFERASE 42 U/L (12-78); ALBUMIN 1.6 G/DL (3.4-5.0); ALBUMIN/GLOBULIN RATIO 0.4 (1.0-2.7); ALKALINE PHOSPHATASE 445 U/L (46-116); ANION GAP 6 mmol/L (5-15); ASPARTATE AMINO TRANSFERASE 44 U/L (15-37); BILIRUBIN,TOTAL 0.5 MG/DL (0.2-1.0); BLOOD UREA NITROGEN 13 mg/dL (7-18); CALCIUM 7.9 MG/DL (8.5-10.1); CARBON DIOXIDE 31 MMOL/L (21-32); CHLORIDE 101 MMOL/L (98-107); CREATININE 0.8 MG/DL (0.55-1.30); SODIUM 138 MMOL/L (136-145)
[2020-01-31 07:34] LABS: POTASSIUM 2.7 MMOL/L (3.5-5.1)
[2020-01-31 08:00] VITALS: BP 113/77
--- NOTE | 2020-01-31 08:15 | Pulmonology Progress Note ---
Subjective ROS Limited/Unobtainable: No Constitutional: Denies: fever, chills Gastrointestinal/Abdominal: Denies: nausea, vomiting, diarrhea Musculoskeletal: Denies: pain Allergies: Coded Allergies: CODEINE (Verified Allergy, Intermediate, VOMITING, 12/31/16) IBUPROFEN (Verified Adverse Reaction, Severe, RED FACE, 12/31/16) pt has cirrhosis of liver Subjective care noted events reviewed on oxygen no clear distress Objective Last 24 Hour Vital Signs Date Time Temp Pulse Resp B/P (MAP) Pulse Ox O2 Delivery O2 Flow Rate FiO2 01/31/20 04:00 99.1 81 22 114/71 (85) 91 01/31/20 04:00 83 01/31/20 03:23 86 18 100 Nasal Cannula 2.0 28 88 18 95 01/31/20 00:00 98.1 94 16 109/50 (69) 94 01/31/20 00:00 99 01/30/20 21:33 97.4 01/30/20 21:00 Nasal Cannula 4.0 01/30/20 20:03 88 18 99 Nasal Cannula 2.0 28 84 18 96 01/30/20 20:03 96 Nasal Cannula 2.0 28 01/30/20 20:02 84 18 96 Nasal Cannula 2.0 28 01/30/20 20:00 91 01/30/20 20:00 98.9 20 124/64 (84) 96 01/30/20 16:20 97.7 01/30/20 16:00 90 01/30/20 15:30 102.4 103/40 (61) 01/30/20 12:41 99.9 01/30/20 12:00 103.0 96 22 97/59 (72) 95 01/30/20 12:00 108 01/30/20 09:00 Nasal Cannula 4.0 Intake and Output 01/30/20 01/31/20 19:00 07:00 Intake Total 1080 ml 120 ml Output Total 1225 ml 400 ml Balance -145 ml -280 ml Intake Oral 1080 ml 120 ml Output Urine Total 1225 ml 400 ml # Bowel Movements 5 2 Objective WDWN NAD reduced breath sounds right base with some rhonchi [id number] without MRG NABS nontender no CCE reduced LOC Laboratory Tests 01/30/20 12:50: White Blood Count 14.8H, Red Blood Count 3.56L, Hemoglobin 11.6L, Hematocrit 35.8L, Mean Corpuscular Volume 101H, Mean Corpuscular Hemoglobin 32.6H, Mean Corpuscular Hemoglobin Concent 32.4, Red Cell Distribution Width 14.7, Platelet Count 107L, Mean Platelet Volume 9.6, Neutrophils (%) (Auto) , Lymphocytes (%) (Auto) , Monocytes (%) (Auto) , Eosinophils (%) (Auto) , Basophils (%) (Auto) , Differential Total Cells Counted 100, Neutrophils % (Manual) 87H, Lymphocytes % (Manual) 5L, Monocytes % (Manual) 7, Eosinophils % (Manual) 1, Basophils % (Manual) 0, Band Neutrophils 0, Platelet Estimate DecreasedL, Platelet Morphology Normal, Hypochromasia 1+, Anisocytosis 1+, Macrocytosis 1+, Sodium Level 148H, Potassium Level 2.8L, Chloride Level 111H, Carbon Dioxide Level 28, Anion Gap 8, Blood Urea Nitrogen 9, Creatinine 0.7, Estimat Glomerular Filtration Rate > 60, Glucose Level 186H, Calcium Level 8.1L, Total Bilirubin 0.6, Aspartate Amino Transf (AST/SGOT) 43H, Alanine Aminotransferase (ALT/SGPT) 60, Alkaline Phosphatase 565H, Total Protein 5.9L, Albumin 1.7L, Globulin 4.2, Albumin/Globulin Ratio 0.4L, Amylase Level 18L, Lipase 43L 01/31/20 06:05: White Blood Count 11.6H, Red Blood Count 3.49L, Hemoglobin 11.4L, Hematocrit 34.5L, Mean Corpuscular Volume 99, Mean Corpuscular Hemoglobin 32.6H, Mean Corpuscular Hemoglobin Concent 32.9, Red Cell Distribution Width 14.3, Platelet Count 103L, Mean Platelet Volume 8.8, Neutrophils (%) (Auto) , Lymphocytes (%) (Auto) , Monocytes (%) (Auto) , Eosinophils (%) (Auto) , Basophils (%) (Auto) , Neutrophils % (Manual) [Pending], Lymphocytes % (Manual) [Pending], Platelet Estimate [Pending], Platelet Morphology [Pending], Sodium Level 138#, Potassium Level 2.7*L, Chloride Level 101, Carbon Dioxide Level 31, Anion Gap 6, Blood Urea Nitrogen 13, Creatinine 0.8, Estimat Glomerular Filtration Rate > 60, Glucose Level 123H, Calcium Level 7.9L, Total Bilirubin 0.5, Aspartate Amino Transf (AST/SGOT) 44H, Alanine Aminotransferase (ALT/SGPT) 42, Alkaline Phosphatase 445H, Total Protein 5.8L, Albumin 1.6L, Globulin 4.2, Albumin/Globulin Ratio 0.4L, Hepatitis A IgM Antibody [Pending], Hepatitis B Surface Antigen [Pending], Hepatitis B Core IgM Antibody [Pending], Hepatitis C Antibody [Pending], HIV (1&2) Antibody Rapid [Pending] Current Medications Medications (Trade) Dose Ordered Sig/Kayla Route PRN Reason Start Time Stop Time Status Last Admin Dose Admin Acetaminophen (Tylenol) 500 mg Q6H PRN ORAL Temp >100.5 01/29/20 12:30 02/28/20 12:29 01/30/20 21:03 Albuterol/ Ipratropium (Albuterol/ Ipratropium) 3 ml Q6HRT PRN HHN Shortness of breath 01/28/20 18:45 02/02/20 18:44 01/31/20 03:22 Artificial Tears (Akwa-Tears) 1 drop TID BOTH EYES 01/27/20 09:00 02/26/20 08:59 01/30/20 14:24 Barium Sulfate (Varibar Honey) 250 ml NOW PRN MC RAD 01/29/20 15:45 02/01/20 15:43 Barium Sulfate (Varibar [place]) 240 ml NOW PRN RAD 01/29/20 15:45 02/01/20 15:43 Barium Sulfate (Varibar Pudding) 230 ml NOW PRN RAD 01/29/20 15:45 02/01/20 15:43 Barium Sulfate (Varibar Thin Liquid powder) 148 gm NOW PRN RAD 01/29/20 15:45 02/01/20 15:43 Chlorhexidine Gluconate (Jyoti-Hex 2%) 1 applic DAILY@2000 TOPIC 01/26/20 20:00 04/25/20 19:59 01/30/20 20:14 Fluticasone Propionate (Flonase) 1 spray DAILY NASAL 01/28/20 00:00 02/27/20 00:00 01/30/20 09:48 Magnesium Hydroxide (Mom) 30 ml DAILYPRN PRN ORAL Constipation 01/26/20 06:30 02/25/20 06:29 Meropenem 1 gm/ Sodium Chloride 55 ml @ 110 mls/hr Q8HR IVPB 01/28/20 22:00 02/03/20 23:59 01/31/20 06:21 Morphine Sulfate (Morphine Sulfate) 1 mg Q4H PRN IVP For Pain 01/25/20 08:45 02/01/20 08:44 01/25/20 10:22 Pantoprazole (Protonix) 40 mg DAILY ORAL 01/28/20 09:00 02/27/20 08:59 01/30/20 09:49 Sucralfate (Carafate) 1 gm FOUR TIMES A DAY ORAL 01/27/20 13:00 04/26/20 12:59 01/30/20 21:02 Assessment/Plan Assessment/Plan Impression: Aspiration Pneumonia Strep bovis, E.Coli Esbl sepsis Metastatic Lung Cancer on chemotherapy Abdominal pain Intra-and extrahepatic biliary ductal dilatation Previous Duodenectomy Cirrhosis Cholangitis Choledocholithiasis Hypoxemia IPlan: IV antibiotics per ID Aspiration precautions Speech therapy Oxygen as needed Monitor labs DVT prophylaxis repeat CXR impression, plan, and exam edited and reviewed in detail care discussed with Jah Nixon MD Jan 31, 2020 08:15
[2020-01-31] MEDS: Flonase Nasal Inhaler 16gm NASAL SCH (09:01)
[2020-01-31] MEDS: Sucralfate 1gm tab ORAL SCH ×2 (09:01→12:52)
--- NOTE | 2020-01-31 09:16 | General Progress Note ---
Subjective ROS Limited/Unobtainable: Yes Allergies: Coded Allergies: CODEINE (Verified Allergy, Intermediate, VOMITING, 12/31/16) IBUPROFEN (Verified Adverse Reaction, Severe, RED FACE, 12/31/16) pt has cirrhosis of liver Objective Last 24 Hour Vital Signs Date Time Temp Pulse Resp B/P (MAP) Pulse Ox O2 Delivery O2 Flow Rate FiO2 01/31/20 08:00 96.7 88 20 113/77 (89) 97 01/31/20 04:00 99.1 81 22 114/71 (85) 91 01/31/20 04:00 83 01/31/20 03:23 86 18 100 Nasal Cannula 2.0 28 88 18 95 01/31/20 00:00 98.1 94 16 109/50 (69) 94 01/31/20 00:00 99 01/30/20 21:33 97.4 01/30/20 21:00 Nasal Cannula 4.0 01/30/20 20:03 88 18 99 Nasal Cannula 2.0 28 84 18 96 01/30/20 20:03 96 Nasal Cannula 2.0 28 01/30/20 20:02 84 18 96 Nasal Cannula 2.0 28 01/30/20 20:00 91 01/30/20 20:00 98.9 20 124/64 (84) 96 01/30/20 16:20 97.7 01/30/20 16:00 90 01/30/20 15:30 102.4 103/40 (61) 01/30/20 12:41 99.9 01/30/20 12:00 103.0 96 22 97/59 (72) 95 01/30/20 12:00 108 Intake and Output 01/30/20 01/31/20 19:00 07:00 Intake Total 1080 ml 120 ml Output Total 1225 ml 400 ml Balance -145 ml -280 ml Intake Oral 1080 ml 120 ml Output Urine Total 1225 ml 400 ml # Bowel Movements 5 2 Laboratory Tests 01/30/20 12:50: White Blood Count 14.8H, Red Blood Count 3.56L, Hemoglobin 11.6L, Hematocrit 35.8L, Mean Corpuscular Volume 101H, Mean Corpuscular Hemoglobin 32.6H, Mean Corpuscular Hemoglobin Concent 32.4, Red Cell Distribution Width 14.7, Platelet Count 107L, Mean Platelet Volume 9.6, Neutrophils (%) (Auto) , Lymphocytes (%) (Auto) , Monocytes (%) (Auto) , Eosinophils (%) (Auto) , Basophils (%) (Auto) , Differential Total Cells Counted 100, Neutrophils % (Manual) 87H, Lymphocytes % (Manual) 5L, Monocytes % (Manual) 7, Eosinophils % (Manual) 1, Basophils % (Manual) 0, Band Neutrophils 0, Platelet Estimate DecreasedL, Platelet Morphology Normal, Hypochromasia 1+, Anisocytosis 1+, Macrocytosis 1+, Sodium Level 148H, Potassium Level 2.8L, Chloride Level 111H, Carbon Dioxide Level 28, Anion Gap 8, Blood Urea Nitrogen 9, Creatinine 0.7, Estimat Glomerular Filtration Rate > 60, Glucose Level 186H, Calcium Level 8.1L, Total Bilirubin 0.6, Aspartate Amino Transf (AST/SGOT) 43H, Alanine Aminotransferase (ALT/SGPT) 60, Alkaline Phosphatase 565H, Total Protein 5.9L, Albumin 1.7L, Globulin 4.2, Albumin/Globulin Ratio 0.4L, Amylase Level 18L, Lipase 43L 01/31/20 06:05: White Blood Count 11.6H, Red Blood Count 3.49L, Hemoglobin 11.4L, Hematocrit 34.5L, Mean Corpuscular Volume 99, Mean Corpuscular Hemoglobin 32.6H, Mean Corpuscular Hemoglobin Concent 32.9, Red Cell Distribution Width 14.3, Platelet Count 103L, Mean Platelet Volume 8.8, Neutrophils (%) (Auto) , Lymphocytes (%) (Auto) , Monocytes (%) (Auto) , Eosinophils (%) (Auto) , Basophils (%) (Auto) , Neutrophils % (Manual) [Pending], Lymphocytes % (Manual) [Pending], Platelet E stimate [Pending], Platelet Morphology [Pending], Sodium Level 138#, Potassium Level 2.7*L, Chloride Level 101, Carbon Dioxide Level 31, Anion Gap 6, Blood Urea Nitrogen 13, Creatinine 0.8, Estimat Glomerular Filtration Rate > 60, Glucose Level 123H, Calcium Level 7.9L, Total Bilirubin 0.5, Aspartate Amino Tr ansf (AST/SGOT) 44H, Alanine Aminotransferase (ALT/SGPT) 42, Alkaline Phosphatase 445H, Total Protein 5.8L, Albumin 1.6L, Globulin 4.2, Albumin/Globulin Ratio 0.4L, Hepatitis A IgM Antibody [Pending], Hepatitis B Surface Antigen [Pending], Hepatitis B Core IgM Antibody [Pending], Hepatitis C Antibody [Pending], HIV (1&2) Antibody Rapid Negative Height (Feet): 5 Height (Inches): 5.00 Weight (Pounds): 127 General Appearance: no apparent distress EENT: normal ENT inspection Neck: supple Cardiovascular: normal rate Respiratory/Chest: decreased breath sounds Abdomen: normal bowel sounds, non tender, soft Extremities: non-tender Assessment/Plan Assessment/Plan: 1. History of cirrhosis. 2. History of lung cancer, on chemotherapy. 3. History of duodenectomy. 4. Hernia repair. 5. History of retinal surgery s/p ERCP but given partial gastrectomy was unsuccessful needs transfer to [facility] for double balloon ERCP but patient is refusing repeat labs improving LFTS abx replace K last BM, last night will fu Aime Mello MD Jan 31, 2020 09:16
[2020-01-31] MEDS ORDERED: Sodium Chloride for KCL Premix X 4hrs IV SCH (10:00)
--- NOTE | 2020-01-31 10:21 | General Progress Note ---
Subjective Allergies: Coded Allergies: CODEINE (Verified Allergy, Intermediate, VOMITING, 12/31/16) IBUPROFEN (Verified Adverse Reaction, Severe, RED FACE, 12/31/16) pt has cirrhosis of liver Subjective sob better check pulse ox on ra ercp not done due to prior surgery recomended to transfer to [facility] , pt has been refusing wbc wnl dc to home with [facility] and ragular ambulence dw charge nurse, cm and brother from [place] Objective Last 24 Hour Vital Signs Date Time Temp Pulse Resp B/P (MAP) Pulse Ox O2 Delivery O2 Flow Rate FiO2 01/31/20 09:00 Nasal Cannula 4.0 01/31/20 08:00 96.7 88 20 113/77 (89) 97 01/31/20 04:00 99.1 81 22 114/71 (85) 91 01/31/20 04:00 83 01/31/20 03:23 86 18 100 Nasal Cannula 2.0 28 88 18 95 01/31/20 00:00 98.1 94 16 109/50 (69) 94 01/31/20 00:00 99 01/30/20 21:33 97.4 01/30/20 21:00 Nasal Cannula 4.0 01/30/20 20:03 88 18 99 Nasal Cannula 2.0 28 84 18 96 01/30/20 20:03 96 Nasal Cannula 2.0 28 01/30/20 20:02 84 18 96 Nasal Cannula 2.0 28 01/30/20 20:00 91 01/30/20 20:00 98.9 20 124/64 (84) 96 01/30/20 16:20 97.7 01/30/20 16:00 90 01/30/20 15:30 102.4 103/40 (61) 01/30/20 12:41 99.9 01/30/20 12:00 103.0 96 22 97/59 (72) 95 01/30/20 12:00 108 Intake and Output 01/30/20 01/31/20 19:00 07:00 Intake Total 1080 ml 120 ml Output Total 1225 ml 400 ml Balance -145 ml -280 ml Intake Oral 1080 ml 120 ml Output Urine Total 1225 ml 400 ml # Bowel Movements 5 2 Laboratory Tests 01/30/20 12:50: White Blood Count 14.8H, Red Blood Count 3.56L, Hemoglobin 11.6L, Hematocrit 35.8L, Mean Corpuscular Volume 101H, Mean Corpuscular Hemoglobin 32.6H, Mean Corpuscular Hemoglobin Concent 32.4, Red Cell Distribution Width 14.7, Platelet Count 107L, Mean Platelet Volume 9.6, Neutrophils (%) (Auto) , Lymphocytes (%) (Auto) , Monocytes (%) (Auto) , Eosinophils (%) (Auto) , Basophils (%) (Auto) , Differential Total Cells Counted 100, Neutrophils % (Manual) 87H, Lymphocytes % (Manual) 5L, Monocytes % (Manual) 7, Eosinophils % (Manual) 1, Basophils % (Manual) 0, Band Neutrophils 0, Platelet Estimate DecreasedL, Platelet Morphology Normal, Hypochromasia 1+, Anisocytosis 1+, Macrocytosis 1+, Sodium Level 148H, Potassium Level 2.8L, Chloride Level 111H, Carbon Dioxide Level 28, Anion Gap 8, Blood Urea Nitrogen 9, Creatinine 0.7, Estimat Glomerular Filtration Rate > 60, Glucose Level 186H, Calcium Level 8.1L, Total Bilirubin 0.6, Aspartate Amino Transf (AST/SGOT) 43H, Alanine Aminotransferase (ALT/SGPT) 60, Alkaline Phosphatase 565H, Total Protein 5.9L, Albumin 1.7L, Globulin 4.2, Albumin/Globulin Ratio 0.4L, Amylase Level 18L, Lipase 43L 01/31/20 06:05: White Blood Count 11.6H, Red Blood Count 3.49L, Hemoglobin 11.4L, Hematocrit 34.5L, Mean Corpuscular Volume 99, Mean Corpuscular Hemoglobin 32.6H, Mean Corpuscular Hemoglobin Concent 32.9, Red Cell Distribution Width 14.3, Platelet Count 103L, Mean Platelet Volume 8.8, Neutrophils (%) (Auto) , Lymphocytes (%) (Auto) , Monocytes (%) (Auto) , Eosinophils (%) (Auto) , Basophils (%) (Auto) , Neutrophils % (Manual) [Pending], Lymphocytes % (Manual) [Pending], Platelet Estimate [Pending], Platelet Morphology [Pending], Sodium Level 138#, Potassium Level 2.7*L, Chloride Level 101, Carbon Dioxide Level 31, Anion Gap 6, Blood Urea Nitrogen 13, Creatinine 0.8, Estimat Glomerular Filtration Rate > 60, Glucose Level 123H, Calcium Level 7.9L, Total Bilirubin 0.5, Aspartate Amino Transf (AST/SGOT) 44H, Alanine Aminotransferase (ALT/SGPT) 42, Alkaline Phosphatase 445H, Total Protein 5.8L, Albumin 1.6L, Globulin 4.2, Albumin/Globulin Ratio 0.4L, Hepatitis A IgM Antibody [Pending], Hepatitis B Surface Antigen [Pending], Hepatitis B Core IgM Antibody [Pending], Hepatitis C Antibody [Pending], HIV (1&2) Antibody Rapid Negative Height (Feet): 5 Height (Inches): 5.00 Weight (Pounds): 127 Assessment/Plan Assessment/Plan: leukocyotosis r/o infection , dw id dr delacruz pneumonia tachycardia secondary to fever sepsis lung ca failure of thrive dehydration cont iv abx gi singh in progress artficial tears dc plan home David Lopez MD Jan 31, 2020 10:21
--- NOTE | 2020-01-31 11:06 | Infectious Diseases Prog Note ---
Assessment/Plan Assessment/Plan antibiotics : meropenem A 1. strep bovis, e.eoli esbl sepsis 2. cholangitis 3. choledocholithiasis 4. leucocytosis improving 5. aspiration pneumonia 6. lung cancer 7. cirrhosis 8. increased LFT improving P 1. continue meropenem in hospital 2. iv ertapenem ordered with home health for 7 days 3. will follow up cultures Subjective Constitutional: Denies: fever, chills Respiratory: Denies: shortness of breath, dry cough Gastrointestinal/Abdominal: Denies: nausea, vomiting, diarrhea Musculoskeletal: Denies: pain Allergies: Coded Allergies: CODEINE (Verified Allergy, Intermediate, VOMITING, 12/31/16) IBUPROFEN (Verified Adverse Reaction, Severe, RED FACE, 12/31/16) pt has cirrhosis of liver Objective Last 24 Hour Vital Signs Date Time Temp Pulse Resp B/P (MAP) Pulse Ox O2 Delivery O2 Flow Rate FiO2 01/31/20 09:00 Nasal Cannula 4.0 01/31/20 08:00 96.7 88 20 113/77 (89) 97 01/31/20 08:00 103 01/31/20 04:00 99.1 81 22 114/71 (85) 91 01/31/20 04:00 83 01/31/20 03:23 86 18 100 Nasal Cannula 2.0 28 88 18 95 01/31/20 00:00 98.1 94 16 109/50 (69) 94 01/31/20 00:00 99 01/30/20 21:33 97.4 01/30/20 21:00 Nasal Cannula 4.0 01/30/20 20:03 88 18 99 Nasal Cannula 2.0 28 84 18 96 01/30/20 20:03 96 Nasal Cannula 2.0 28 01/30/20 20:02 84 18 96 Nasal Cannula 2.0 28 01/30/20 20:00 91 01/30/20 20:00 98.9 20 124/64 (84) 96 01/30/20 16:20 97.7 01/30/20 16:00 90 01/30/20 15:30 102.4 103/40 (61) 01/30/20 12:41 99.9 01/30/20 12:00 103.0 96 22 97/59 (72) 95 01/30/20 12:00 108 Height (Feet): 5 Height (Inches): 5.00 Weight (Pounds): 127 Respiratory/Chest: lungs clear Cardiovascular: normal rate, regular rhythm, no gallop/murmur Abdomen: soft, non tender Extremities: no edema, other - right subclavian catheter Laboratory Tests Test 01/30/20 12:50 01/31/20 06:05 White Blood Count 14.8 K/UL (4.8-10.8) H 11.6 K/UL (4.8-10.8) H Red Blood Count 3.56 M/UL (4.70-6.10) L 3.49 M/UL (4.70-6.10) L Hemoglobin 11.6 G/DL (14.2-18.0) L 11.4 G/DL (14.2-18.0) L Hematocrit 35.8 % (42.0-52.0) L 34.5 % (42.0-52.0) L Mean Corpuscular Volume 101 FL (80-99) H 99 FL (80-99) Mean Corpuscular Hemoglobin 32.6 PG (27.0-31.0) H 32.6 PG (27.0-31.0) H Mean Corpuscular Hemoglobin Concent 32.4 G/DL (32.0-36.0) 32.9 G/DL (32.0-36.0) Red Cell Distribution Width 14.7 % (11.6-14.8) 14.3 % (11.6-14.8) Platelet Count 107 K/UL (150-450) L 103 K/UL (150-450) L Mean Platelet Volume 9.6 FL (6.5-10.1) 8.8 FL (6.5-10.1) Neutrophils (%) (Auto) % (45.0-75.0) % (45.0-75.0) Lymphocytes (%) (Auto) % (20.0-45.0) % (20.0-45.0) Monocytes (%) (Auto) % (1.0-10.0) % (1.0-10.0) Eosinophils (%) (Auto) % (0.0-3.0) % (0.0-3.0) Basophils (%) (Auto) % (0.0-2.0) % (0.0-2.0) Differential Total Cells Counted 100 Neutrophils % (Manual) 87 % (45-75) H Pending Lymphocytes % (Manual) 5 % (20-45) L Pending Monocytes % (Manual) 7 % (1-10) Eosinophils % (Manual) 1 % (0-3) Basophils % (Manual) 0 % (0-2) Band Neutrophils 0 % (0-8) Platelet Estimate Decreased L Pending Platelet Morphology Normal Pending Hypochromasia 1+ Anisocytosis 1+ Macrocytosis 1+ Sodium Level 148 MMOL/L (136-145) H 138 MMOL/L (136-145) # Potassium Level 2.8 MMOL/L (3.5-5.1) L 2.7 MMOL/L (3.5-5.1) *L Chloride Level 111 MMOL/L (98-107) H 101 MMOL/L (98-107) Carbon Dioxide Level 28 MMOL/L (21-32) 31 MMOL/L (21-32) Anion Gap 8 mmol/L (5-15) 6 mmol/L (5-15) Blood Urea Nitrogen 9 mg/dL (7-18) 13 mg/dL (7-18) Creatinine 0.7 MG/DL (0.55-1.30) 0.8 MG/DL (0.55-1.30) Estimat Glomerular Filtration Rate > 60 mL/min (>60) > 60 mL/min (>60) Glucose Level 186 MG/DL (74-106) H 123 MG/DL (74-106) H Calcium Level 8.1 MG/DL (8.5-10.1) L 7.9 MG/DL (8.5-10.1) L Total Bilirubin 0.6 MG/DL (0.2-1.0) 0.5 MG/DL (0.2-1.0) Aspartate Amino Transf (AST/SGOT) 43 U/L (15-37) H 44 U/L (15-37) H Alanine Aminotransferase (ALT/SGPT) 60 U/L (12-78) 42 U/L (12-78) Alkaline Phosphatase 565 U/L (46-116) H 445 U/L (46-116) H Total Protein 5.9 G/DL (6.4-8.2) L 5.8 G/DL (6.4-8.2) L Albumin 1.7 G/DL (3.4-5.0) L 1.6 G/DL (3.4-5.0) L Globulin 4.2 g/dL 4.2 g/dL Albumin/Globulin Ratio 0.4 (1.0-2.7) L 0.4 (1.0-2.7) L Amylase Level 18 U/L (25-115) L Lipase 43 U/L (73-393) L Hepatitis A IgM Antibody Pending Hepatitis B Surface Antigen Pending Hepatitis B Core IgM Antibody Pending Hepatitis C Antibody Pending HIV (1&2) Antibody Rapid Negative (NEGATIVE) Current Medications Medications (Trade) Dose Ordered Sig/Kayla Route PRN Reason Start Time Stop Time Status Last Admin Dose Admin Acetaminophen (Tylenol) 500 mg Q6H PRN ORAL Temp >100.5 01/29/20 12:30 02/28/20 12:29 01/30/20 21:03 Albuterol/ Ipratropium (Albuterol/ Ipratropium) 3 ml Q6HRT PRN HHN Shortness of breath 01/28/20 18:45 02/02/20 18:44 01/31/20 03:22 Artificial Tears (Akwa-Tears) 1 drop TID BOTH EYES 01/27/20 09:00 02/26/20 08:59 01/31/20 09:01 Barium Sulfate (Varibar Honey) 250 ml NOW PRN RAD 01/29/20 15:45 02/01/20 15:43 Barium Sulfate (Varibar Alcova) 240 ml NOW PRN RAD 01/29/20 15:45 02/01/20 15:43 Barium Sulfate (Varibar Pudding) 230 ml NOW PRN MC RAD 01/29/20 15:45 02/01/20 15:43 Barium Sulfate (Varibar Thin Liquid powder) 148 gm NOW PRN RAD 01/29/20 15:45 02/01/20 15:43 Chlorhexidine Gluconate (Jyoti-Hex 2%) 1 applic DAILY@2000 TOPIC 01/26/20 20:00 04/25/20 19:59 01/30/20 20:14 Fluticasone Propionate (Flonase) 1 spray DAILY NASAL 01/28/20 00:00 02/27/20 00:00 01/31/20 09:01 Magnesium Hydroxide (Mom) 30 ml DAILYPRN PRN ORAL Constipation 01/26/20 06:30 02/25/20 06:29 Meropenem 1 gm/ Sodium Chloride 55 ml @ 110 mls/hr Q8HR IVPB 01/28/20 22:00 02/03/20 23:59 01/31/20 06:21 Morphine Sulfate (Morphine Sulfate) 1 mg Q4H PRN IVP For Pain 01/25/20 08:45 02/01/20 08:44 01/25/20 10:22 Pantoprazole (Protonix) 40 mg DAILY ORAL 01/28/20 09:00 02/27/20 08:59 01/31/20 09:01 Potassium Chloride 100 ml @ 100 mls/hr Q1HR IVPB 01/31/20 10:00 01/31/20 13:59 Sodium Chloride 400 ml @ 100 mls/hr Q4H IV 01/31/20 10:00 01/31/20 13:59 Sucralfate (Carafate) 1 gm FOUR TIMES A DAY ORAL 01/27/20 13:00 04/26/20 12:59 01/31/20 09:01 Georgina Kang MD Jan 31, 2020 11:06
[2020-01-31 12:00] VITALS: BP 132/78
[2020-01-31] MEDS ORDERED: Ertapenem 1 GM in NS 55 ML IV SCH (14:00)
--- NOTE | 2020-01-31 15:09 | Surgery Progress Note ---
Surgery Progress Note Subjective Symptoms: tolerating diet, voiding well, passing flatus, BM Additional Comments Patient is discharged home without any signs of distress. Patient is alert and awake. A&O X 4. verbally responsive. Respiration is even and unlabored on room air. no complaints no n/v late entry Objective Last 24 Hour Vital Signs Date Time Temp Pulse Resp B/P (MAP) Pulse Ox O2 Delivery O2 Flow Rate FiO2 01/31/20 12:00 99.4 55 21 132/78 (96) 96 01/31/20 12:00 80 01/31/20 09:00 Nasal Cannula 4.0 01/31/20 08:00 96.7 88 20 113/77 (89) 97 01/31/20 08:00 103 01/31/20 07:00 97 Nasal Cannula 2.0 28 01/31/20 07:00 88 18 97 Nasal Cannula 2.0 28 01/31/20 04:00 99.1 81 22 114/71 (85) 91 01/31/20 04:00 83 01/31/20 03:23 86 18 100 Nasal Cannula 2.0 28 88 18 95 01/31/20 00:00 98.1 94 16 109/50 (69) 94 01/31/20 00:00 99 01/30/20 21:33 97.4 01/30/20 21:00 Nasal Cannula 4.0 01/30/20 20:03 88 18 99 Nasal Cannula 2.0 28 84 18 96 01/30/20 20:03 96 Nasal Cannula 2.0 28 01/30/20 20:02 84 18 96 Nasal Cannula 2.0 28 01/30/20 20:00 91 01/30/20 20:00 98.9 20 124/64 (84) 96 01/30/20 16:20 97.7 01/30/20 16:00 90 01/30/20 15:30 102.4 103/40 (61) I&O Intake and Output 01/30/20 01/31/20 19:00 07:00 Intake Total 1080 ml 120 ml Output Total 1225 ml 400 ml Balance -145 ml -280 ml Intake Oral 1080 ml 120 ml Output Urine Total 1225 ml 400 ml # Bowel Movements 5 2 Cardiovascular: RSR Respiratory: clear Abdomen: soft, non-tender, present bowel sounds, non-distended Extremities: no edema, no tenderness, no cyanosis Laboratory Tests Test 01/31/20 06:05 White Blood Count 11.6 K/UL (4.8-10.8) H Red Blood Count 3.49 M/UL (4.70-6.10) L Hemoglobin 11.4 G/DL (14.2-18.0) L Hematocrit 34.5 % (42.0-52.0) L Mean Corpuscular Volume 99 FL (80-99) Mean Corpuscular Hemoglobin 32.6 PG (27.0-31.0) H Mean Corpuscular Hemoglobin Concent 32.9 G/DL (32.0-36.0) Red Cell Distribution Width 14.3 % (11.6-14.8) Platelet Count 103 K/UL (150-450) L Mean Platelet Volume 8.8 FL (6.5-10.1) Neutrophils (%) (Auto) % (45.0-75.0) Lymphocytes (%) (Auto) % (20.0-45.0) Monocytes (%) (Auto) % (1.0-10.0) Eosinophils (%) (Auto) % (0.0-3.0) Basophils (%) (Auto) % (0.0-2.0) Differential Total Cells Counted 100 Neutrophils % (Manual) 91 % (45-75) H Lymphocytes % (Manual) 4 % (20-45) L Monocytes % (Manual) 5 % (1-10) Eosinophils % (Manual) 0 % (0-3) Basophils % (Manual) 0 % (0-2) Band Neutrophils 0 % (0-8) Platelet Estimate Decreased L Platelet Morphology Normal Macrocytosis 1+ Sodium Level 138 MMOL/L (136-145) # Potassium Level 2.7 MMOL/L (3.5-5.1) *L Chloride Level 101 MMOL/L (98-107) Carbon Dioxide Level 31 MMOL/L (21-32) Anion Gap 6 mmol/L (5-15) Blood Urea Nitrogen 13 mg/dL (7-18) Creatinine 0.8 MG/DL (0.55-1.30) Estimat Glomerular Filtration Rate > 60 mL/min (>60) Glucose Level 123 MG/DL (74-106) H Calcium Level 7.9 MG/DL (8.5-10.1) L Total Bilirubin 0.5 MG/DL (0.2-1.0) Aspartate Amino Transf (AST/SGOT) 44 U/L (15-37) H Alanine Aminotransferase (ALT/SGPT) 42 U/L (12-78) Alkaline Phosphatase 445 U/L (46-116) H Total Protein 5.8 G/DL (6.4-8.2) L Albumin 1.6 G/DL (3.4-5.0) L Globulin 4.2 g/dL Albumin/Globulin Ratio 0.4 (1.0-2.7) L Hepatitis A IgM Antibody Pending Hepatitis B Surface Antigen Pending Hepatitis B Core IgM Antibody Pending Hepatitis C Antibody Pending HIV (1&2) Antibody Rapid Negative (NEGATIVE) Plan Problems: (1) Metastatic primary lung cancer Assessment & Plan: as per oncology input appreciated (2) Right lower lobe pneumonia (3) Liver cirrhosis Assessment & Plan: DAILY ESTIMATED NEEDS: Needs based on Ca, chemo, underweight 60kg 30-40 kcals/kg 5516-1534 total kcals 1-2 g protein/kg 60-120 g total protein 25-30 mL/kg 7686-4470 total fluid mLs NUTRITION DIAGNOSIS: Increased kcal and pro needs r/t wt loss, cancer as evidenced by pt w/ mets lungs CA, on chemo, w/ suspected 18lbs wt loss, 12% wt change, currently 80% of ideal body weight. CURRENT DIET:LOW FAT, Mech soft chopped PO DIET RECOMMENDATIONS: LOW NA/ texture as tolerated + Continue Ensure Enlive TID w/ meals ADDITIONAL RECOMMENDATIONS: 1) Continue Ensure Enlive TID w/ meals (350kcal/20g prot each) 2) Obtain calibrated bed scale wts 3) Snacks in b/w meals as tolerated (4) Abdominal pain Assessment & Plan: lft's elevated possible cholecystitis pending MRCP - noted choledocholithiasis pending HIDA - ... US ordered noted npo iv fluids iv abx trend labs will follow with recs Unable to do an ERCP given the patient has history of antrectomy and Micah-en-Y surgery. Recommend the patient to be transferred to [facility] for double balloon ERCP. transfer but refusing likely passed stone dc outpatient gi f/u ABDOMEN: Liver: Unremarkable. No mass. Gallbladder and bile ducts: There is moderate to marked intra-and extrahepatic biliary ductal dilatation, with the common bile duct measuring up to 15 mm in diameter. Pancreas: Unremarkable. No mass. No ductal dilation. Spleen: Unremarkable. No splenomegaly. Adrenals: Unremarkable. No mass. Kidneys and ureters: Unremarkable. No solid mass. No hydronephrosis. Stomach and bowel: Postsurgical changes seen regional to the gastroesophageal junction. No evidence of bowel obstruction. No definite bowel wall thickening. PELVIS: Appendix: No findings to suggest acute appendicitis. Bladder: Moderate distention of the urinary bladder. No bladder wall thickening. No intraluminal calculi. Reproductive: Penile prosthesis in place. ABDOMEN and PELVIS: Intraperitoneal space: Unremarkable. No free air. No significant fluid collection. Bones/joints: No acute fracture. No dislocation. Soft tissues: Unremarkable. Vasculature: Unremarkable. No abdominal aortic aneurysm. Lymph nodes: Unremarkable. No enlarged lymph nodes. IMPRESSION: Patchy airspace opacities in the right upper and right middle lobes may be associated with multifocal pneumonia. Please correlate with patient's respiratory status. Moderate intra-and extrahepatic biliary ductal dilatation. Please correlate with lab work to assess for acute biliary obstruction, which may be associated with ampullary lesion or obstructing gallstone. If further imaging is warranted consider MRCP. (5) penile prosthesis implant Bryan Garcia Jan 31, 2020 15:09
--- NOTE | 2020-02-01 16:08 | Discharge Summary ---
Discharge Summary Discharge Summary _ DATE OF ADMISSION: 01/25/2020 DATE OF DISCHARGE: 01/31/2020 DISCHARGED BY: Dr. Lopez REASON FOR ADMISSION: 74 years old male with past medical history of metastatic lung cancer, started chemotherapy 3 weeks ago, liver cirrhosis, status post hernia repair, status post repair of detached retina in the right eye, bilateral cataract, presented from home with abdominal pain and vomiting , started last night. Pain rated as 8 out of 10 constant in the lower abdomen, with radiation to his back. He denied change in his bowels. No hematochezia or melena, no bright red blood per rectum. In the ambulance patient vomited some oatmeal and was coughing after that. He had a Port-A-Cath. Patient reported losing weight. Upon evaluation vital signs were stable. Chest x-ray revealed focal right-sided airspace opacity , potentially related to pneumonia. CT scan of the abdomen and pelvis revealed patchy airspace opacity in the right upper and right middle lobes, possibly associated with multifocal pneumonia. Moderate intra and extrahepatic biliary ductal dilatation. Laboratory work-up revealed stable electrolytes and renal parameters. Lactic acid 1.1. Glucose 169. AST 495, ALT 362. Lipase 51 Troponin negative. WBC 26.8, hemoglobin 12.9, hematocrit 38.8, platelet count 322. Rapid COVID-19 was negative. Urinalysis revealed no evidence of urinary tract infection. In emergency department patient received empiric antibiotic,, antiemetic analgesic, Pepcid, and admitted for further management. CONSULTANTS: pulmonary Dr. De Los Santos ID specialist Dr. Kang GI specialist Dr. Mello warehouse trainer/oncologist Dr. Ivory surgery Dr. Garcia [facility] COURSE: Patient admitted to telemetry floor. Patient started on IV hydration and empiric antibiotic as per ID specialist recommendation. Initial blood culture revealed E. coli ESBL and Strep bovis. Sputum culture revealed Jennifer. Repeated blood culture on 01/29 were negative. Antibiotic regimen optimized as per ID specialist recommendation. Leukocytosis trended down; prior to discharge 11.6. Patient was on meropenem in the hospital and changed to IV at ertapenem for additional 7 days at home to complete the course. HIDA scan revealed normal liver uptake. Absent biliary excretion. Probably due to high-grade biliary obstruction demonstrated on subsequent MRCP secondary to choledocholithiasis. MRCP revealed cholelithiasis, choledocholithiasis, resulting in mild extrahepatic and central intrahepatic biliary ductal dilatation. Mild hepatomegaly. Edema of the periportal fat. Bilateral perinephric fluid. GI specialist followed. LFT were closely monitored, trending down. Potassium was replaced , Bowel regimen instituted. ERCP was attempted on 01/26, but unable to do due to history of antrectomy and Micah-en-Y surgery GI specialist recommended for patient to have double-balloon ERCP. EGD with biopsy was done and revealed small hiatal hernia with distal esophageal ring as well as the bile induced gastropathy , status post biopsy. Biopsy revealed mild chronic gastritis, focally active with reactive changes. Surgeon followed. No need for acute surgical intervention at this time. Pain management was addressed. Supplemental oxygen provided and titrated to keep pulse oximetry above 92%. Pulmonary toilet provided. DVT prophylaxis provided. Aspiration precaution maintained. Repeated chest x-ray revealed extensive airspace consolidation throughout the right mid and lower lung consistent with infiltrate small right pleural effusion, no pneumothorax. Counts were closely monitored. Leukocytosis trended down. Thrombocytopenia was likely related to cirrhosis. Platelet count 103 prior to discharge. Hepatitis panel was negative. HIV test was nonreactive. Stool for occult blood was negative. Hemoglobin and hematocrit were closely monitored with goal to keep hemoglobin ab ove 7, prior to discharge hemoglobin 11.4. Patient was on IV iron. Supportive care provided. Patient clinically stabilized and was ready for discharge home with home health services for IV antibiotic. Outpatient follow-up with oncologist for continuation of chemotherapy. GI specialist recommended double-balloon ERCP to be done at [facility]. FINAL DIAGNOSES: Strep bovis, E. 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 DISCHARGE INSTRUCTIONS: Patient was discharged home with home health services. Follow up with primary care provider in one week. I have been assigned to dictate discharge summary for this account. I was not involved in the patient's management. Sari Tovar NP Feb 01, 2020 16:08
--- NOTE | 2020-02-02 14:25 | Diagnostic Imaging Report ---
EXAM: XR Chest, 1 View CLINICAL HISTORY: Shortness of breath TECHNIQUE: Frontal view of the chest. Please note that the exam was obtained on 01/31/20, however was submitted for interpretation until 02/02/20. COMPARISON: Chest x-rays dated 01/29/20 FINDINGS: Lungs: No significant interval change in the patchy pulmonary opacities, most prominent in the mid and lower right lung. Pleural space: No significant change in appearance of a small right pleural effusion. Heart: Unremarkable. No cardiomegaly. Mediastinum: Unremarkable. Bones/joints: Mild degenerative disc space loss throughout the visualized spine. Tubes, lines and devices: Port in the right chest wall with catheter tip in the region of the right atrium. Telemetry leads overlie the thorax. Upper abdomen: Surgical clips in the midepigastric region. IMPRESSION: 1. No significant interval change in the patchy pulmonary opacities compared to the chest x-ray from 01/29/20, most prominent in the mid and lower right lung. 2. No significant change in appearance of a small right pleural effusion.
== END 2020-01-31 13:50 | disposition home health service (06) | DRG 871 ==
LOC: EDBD 03:32 → EMR 04:16 → 2E 04:29 → EDBEDREQ 05:59 → 2E 01-26 09:00
PROC: 0DB68ZX Excision of Stomach, Via Natural or Artificial Opening Endoscopic, Diagnostic (ICD-10-PCS; principal; 2020-01-27 10:51)
DX: A41.51 Sepsis due to Escherichia coli [E. coli] (principal); J69.0 Pneumonitis due to inhalation of food and vomit; C34.90 Malignant neoplasm of unspecified part of unspecified bronchus or lung; Z16.12 Extended spectrum beta lactamase (ESBL) resistance; K83.09 Other cholangitis; C79.9 Secondary malignant neoplasm of unspecified site; A40.8 Other streptococcal sepsis; K74.60 Unspecified cirrhosis of liver; K80.50 Calculus of bile duct without cholangitis or cholecystitis without obstruction; R09.02 Hypoxemia; D69.59 Other secondary thrombocytopenia; D50.9 Iron deficiency anemia, unspecified; D63.0 Anemia in neoplastic disease; E86.0 Dehydration; Z88.6 Allergy status to analgesic agent; Z90.49 Acquired absence of other specified parts of digestive tract; Z79.82 Long term (current) use of aspirin; Z87.891 Personal history of nicotine dependence; K44.9 Diaphragmatic hernia without obstruction or gangrene; K22.2 Esophageal obstruction; K31.9 Disease of stomach and duodenum, unspecified; R62.7 Adult failure to thrive
CPT/HCPCS: 36415; 71045; 74177; 74181; 78266; 80053; 80202; 81003; 82140; 82150; 82248; 82270; 82550; 82607; 82728; 82746; 82803; 83540; 83550; 83605; 83615; 83690; 83735; 83880; 84484; 85007; 85025; 85610; 85730; 86140; 86703; 86705; 86709; 86803; 87040; 87070; 87181; 87205; 87340; 93005; 94003; 94150; 94640; 94664; 96361; 96365; 96366; 96367; 96368; 96375; 96376; 99285; J2250; J2405; J7030; J7620; J8499; U0002